=== PATIENT | female | born 1930 | race Caucasian/White ===

== ENCOUNTER → 2016-10-02 | Outpatient (CLI) | payer BC ==
[~2016-10-02] MED LIST: ASPCH81X PO; CALC-20 PO; LATA0.5S OPB; LORA-741 PO; METO25TA3 PO; MULT-506 PO; PANT40TA PO; POTA10CA28 PO; SIMV10TA2 PO; TRAM-10 PO
[2016-10-02 12:32] LABS: CHOLESTEROL/HDL RATIO 2.4
== END | disposition home or self-care (01) ==
LOC: C.LABBFT 08:06
PROVIDERS: ATTEND Internal Medicine Cardiovascular Disease
DX: E78.5 Hyperlipidemia, unspecified (principal); I10 Essential (primary) hypertension

== ENCOUNTER → 2017-04-09 | Outpatient (CLI) | payer BC ==
[2017-04-09 12:06] LABS: BASO % 0.2 %; BASO ABS # 0.01 K/uL (0-0.2); COMPLETE YES; EOS % 1.4 %; HEMATOCRIT 37.5 % (37-47); IG% 0.2 %; LYMPH % 28.2 %; LYMPH ABS # 1.41 K/uL (1.2-3.4); MEAN CELL VOLUME 89.7 fL (80-100); MEAN CORPUSCULAR HEMOGLOBIN 29.4 pg (25-34); MEAN CORPUSCULAR HGB CONC 32.8 g/dl (32-36); MEAN PLATELET VOLUME 10.6 fL (7.4-10.4); MONO % 11.2 %; NEUT % 58.8 %; PLATELET COUNT 204 K/uL (130-400); RED BLOOD COUNT 4.18 M/uL (4.2-5.4)
[2017-04-09 12:26] LABS: CHOLESTEROL/HDL RATIO 2.7; THYROID STIMULATING HORMONE 3.47 uIu/ml (0.300-4.500)
== END | disposition home or self-care (01) ==
LOC: C.LABBFT 09:12
PROVIDERS: ATTEND Internal Medicine Cardiovascular Disease
DX: E78.5 Hyperlipidemia, unspecified (principal); M41.9 Scoliosis, unspecified; K21.0 Gastro-esophageal reflux disease with esophagitis; J47.9 Bronchiectasis, uncomplicated; M54.40 Lumbago with sciatica, unspecified side; K22.4 Dyskinesia of esophagus; I48.91 Unspecified atrial fibrillation; M48.061 Spinal stenosis, lumbar region without neurogenic claudication

== ENCOUNTER 2017-06-03 12:25 | Emergency (ER) | payer BC ==
[2017-06-03 12:27] VITALS: TEMP 36.4; Ht 157.5 cm
[2017-06-03] MEDS ORDERED: ONDANSETRON INJ 2 MG/ML 2 ML VIAL IV STA (12:42)
[2017-06-03] MEDS ORDERED: ALBUT/IPRATROP 3MG/0.5MG NEB 3 ML VIAL INH STA (12:42)
[2017-06-03] MEDS: MoRPHine SULFATE 4 MG/ML 1 ML CARP\\VIAL IV PRN ×2 (13:01→14:01)
--- NOTE | 2017-06-03 13:08 | EMERGENCY ROOM VISIT NOTE ---
History Report prepared by Nena: Brenda Arboleda Under the Supervision of: Dr. Deion Osborn D.O. First contact with patient: 12:34 Chief Complaint: RIB PAIN Stated Complaint: FELL,RIBS History of Present Illness The patient is a 87 year old female who presents to the Emergency Room with complaints of constant right sided rib pain beginning 7 days ago. The patient notes that she fell last , seven days ago. The patient states she was bending forward to wipe off of her dogs feet when she fell forward and hit her head. She denies loss of consciousness. Three days ago, the patient had another fall when she went to sit on her rocking chair and missed the chair. She reports some arm pain and back pain. The patient has a history of COPD, atrial fibrillation. The patient does not wear oxygen. She notes slightly more shortness of breath than her baseline. The patient takes a baby aspirin daily. Source of History: patient Onset: 7 days duke Position: other (rib) Timing: constant Associated Symptoms: + SOB, + back pain, No LOC Review of Systems See HPI for pertinent positives & negatives. A total of 10 systems reviewed and were otherwise negative. Past Medical & Surgical Medical Problems: (1) Atrial fibrillation (2) COPD (chronic obstructive pulmonary disease) Family History Patient reports no known family medical history. Social History Smoking Status: Former Smoker Marital Status: Housing Status: lives with family Current/Historical Medications Scheduled Albuterol Hfa (Ventolin Hfa), 1 PUFF INH Q6 Aspirin (Aspirin Chewable), 81 MG PO QAM Calcium Carbonate-Vitamin D (Calcium 600 + D), 1 TAB PO DAILY Latanoprost (Xalatan 0.005% Oph Hailey), 1 DROPS OPB @2100 Metoprolol Succ (Toprol Xl) (Toprol-Xl), 12.5 MG PO QAM Pantoprazole (Protonix), 40 MG PO 1700 Polyethylene Glycol 3350 (Miralax), 17 GM PO DAILY Potassium Chloride (Micro-K Ext Rel), 10 MEQ PO DAILY Sertraline (Zoloft), 25 MG PO QAM Simvastatin (Zocor), 10 MG PO Q2D Scheduled PRN Lorazepam (Ativan), 0.5 MG PO BID PRN Oxycodone Immediate Rel Tab (Roxicodone Ir), 1 TAB PO Q4H PRN for Severe Pain Tramadol (Ultram), 50 MG PO BID PRN for Pain Allergies Coded Allergies: Erythromycin (Unverified Adverse Reaction, Intermediate, NAUSEA, 06/03/17) Physical Exam Vital Signs Date Time Temp Pulse Resp B/P (MAP) Pulse Ox O2 Delivery O2 Flow Rate FiO2 06/03/17 16:12 80 16 117/54 93 Room Air 06/03/17 14:47 85 16 165/76 100 Nasal Cannula 3.0 06/03/17 14:26 97 Nasal Cannula 3.0 06/03/17 13:49 73 17 173/76 100 Room Air 06/03/17 12:46 75 06/03/17 12:27 36.4 83 20 127/55 97 Room Air Physical Exam GENERAL: Patient is awake, alert, and in no acute distress. Patient is very uncomfortable appearing and showing no signs of anxiety EYES: The conjunctivae are clear. The pupils are round and reactive. EARS, NOSE, MOUTH AND THROAT: The nose is without any evidence of any deformity. Mucous membranes are moist tongue is midline NECK: The neck is nontender and supple. RESPIRATORY: Lung sounds diminished throughout, splinting respirations especially on right side, pursed lip breathing. CARDIOVASCULAR: Tachycardic rate but regular rhythm, no definite murmur appreciated. GASTROINTESTINAL: RUQ tenderness to palpation, no guarding or rigidity. The abdomen is soft. Bowel sounds are present in all quadrants. PELVIS: The Pelvis is stable. No tenderness to palpation is noted. BACK: No midline tenderness, but significant right posterior rib tenderness, no definite crepitus. MUSCULOSKELETAL/EXTREMITIES: There is no evidence of gross deformity full range of motion is noted in the hips and shoulders SKIN: Significant ecchymosis over right arm. There is no obvious evidence of any rash. There are no petechiae, pallor or cyanosis noted. NEUROLOGIC: Patient is awake alert and oriented x3 strength is symmetric patellar reflexes are 2+ bilaterally Medical Decision & Procedures ER Provider Diagnostic Interpretation: Radiology results as stated below per my review and radiologist interpretation: CHEST ONE VIEW PORTABLE FINDINGS: Atherosclerosis of the aortic arch. Cardiac silhouette normal in size. Mild hyperinflation of the lungs. Heterogeneity of lung parenchyma. Minimal basilar opacities. Blunting of the bilateral costophrenic angles. No pneumothorax. Dextrocurvature of the thoracic spine. Osteopenia suspected. Deformities of several anterior right ribs could suggest age-indeterminate fractures. Upper abdomen normal. IMPRESSION: 1. Findings suggestive of emphysema. No focal infiltrate to suggest pneumonia. Minimal bibasilar atelectasis versus chronic lung disease. Electronically signed by: Luis Beal M.D. CT ABD/PELVIS IV AND ORAL CONT FINDINGS: Lower chest: There is lower lobe bronchial wall thickening and mucous plugging. There are bronchiectatic changes present within the lingula. No pneumothorax is visualized. Liver: The contrast-enhanced liver is normal in size, contour, and attenuation. There is no intrahepatic biliary ductal dilatation. The hepatic veins and portal veins are patent. Gallbladder: Unremarkable. Spleen: Normal in size and attenuation. Pancreas: Unremarkable. Adrenal glands: Unremarkable. Kidneys: There are no findings to indicate acute renal injury. There is a 7 mm right renal cyst and 10 mm left renal cyst. 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 There are surgical clips adjacent to the right kidney within the retroperitoneum. Bowel: There is fecal retention. There is colonic diverticulosis. There are no transition zones indicate bowel obstruction. There are no extraluminal gas bubbles. Peritoneum: There is no intraperitoneal free air or abdominal ascites. Vasculature: The abdominal aorta is normal in course and caliber. Adenopathy: None. Pelvic viscera: The uterus appears surgically absent Skeletal structures: No destructive osseous lesions are seen. There is a scoliosis. No fractures are visualized. IMPRESSION: 1. No evidence of acute intra-abdominal or pelvic injury 2. Diverticulosis. No evidence of acute diverticulitis 3. Fecal retention 4. 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 Electronically signed by: Kaiden Cruz M.D. (CHEST) THORAX WITH FINDINGS: [employer] Burnisher topogram: S-shaped scoliotic curvature of the thoracolumbar spine. Surgical clips project over the right mid abdomen. On soft tissue windows, normal thyroid and thoracic inlet. No axillary, supraclavicular, hilar, or mediastinal lymphadenopathy. Atherosclerosis of the aorta. Normal heart size. Minimal coronary artery calcification. Trace right pleural effusion. No pericardial effusion. Calcified lymph nodes suggested in the celiac axis. On lung windows, peripheral reticulation and consolidation has slightly progressed since the prior exam and is noted at the apices and anteriorly in the upper lobes, right greater than left, anteriorly in the right middle lobe, and at the bilateral lung bases. At the lung bases, cystic and reticular change in a subpleural distribution has a stacked appearance. Mosaic attenuation suggest small airways disease. Calcification noted in the medial basal right lower lobe. Debris noted in segmental and subsegmental bronchi in the right lower lobe. More central airways are patent. On bone windows, exaggerated thoracic kyphosis. Degenerative changes of the thoracic spine. Slight deformities of several anterior right ribs suggest fracture. Osteopenia. No focal compression deformity. IMPRESSION: 1. Slight interval progression of peripheral fibrotic changes. Although the lung bases are affected and somewhat suggestive of a honeycomb pattern, anterior and upper lobe involvement would be atypical for a usual interstitial pneumonia pattern. No evidence of emphysema or acute intrathoracic pathology. Other etiologies of pulmonary fibrosis including smoking, chronic aspiration, prior granulomatous infection, chronic hypersensitivity pneumonitis, or drug-induced lung disease among other etiologies. 2. Osteopenia. 3. Nondisplaced deformities of anterior right ribs suggest fracture. These are age-indeterminate. Correlate for point tenderness. Electronically signed by: Luis Beal M.D. Laboratory Results 06/03/17 12:56 Red Blood Count 4.08, Mean Corpuscular Volume 89.7, Mean Corpuscular Hemoglobin 29.9, Mean Corpuscular Hemoglobin Concent 33.3, Mean Platelet Volume 10.2, Neutrophils (%) (Auto) 70.1, Lymphocytes (%) (Auto) 15.4, Monocytes (%) (Auto) 13.5, Eosinophils (%) (Auto) 0.5, Basophils (%) (Auto) 0.3, Neutrophils # (Auto ) 4.27, Lymphocytes # (Auto) 0.94, Monocytes # (Auto) 0.82, Eosinophils # (Auto ) 0.03, Basophils # (Auto) 0.02 06/03/17 12:56 Test 06/03/17 12:56 06/03/17 13:05 06/03/17 13:40 White Blood Count 6.09 K/uL (4.8-10.8) Red Blood Count 4.08 M/uL (4.2-5.4) Hemoglobin 12.2 g/dL (12.0-16.0) Hematocrit 36.6 % (37-47) Mean Corpuscular Volume 89.7 fL (80-100) Mean Corpuscular Hemoglobin 29.9 pg (25-34) Mean Corpuscular Hemoglobin Concent 33.3 g/dl (32-36) Platelet Count 214 K/uL (130-400) Mean Platelet Volume 10.2 fL (7.4-10.4) Neutrophils (%) (Auto) 70.1 % Lymphocytes (%) (Auto) 15.4 % Monocytes (%) (Auto) 13.5 % Eosinophils (%) (Auto) 0.5 % Basophils (%) (Auto) 0.3 % Neutrophils # (Auto) 4.27 K/uL (1.4-6.5) Lymphocytes # (Auto) 0.94 K/uL (1.2-3.4) Monocytes # (Auto) 0.82 K/uL (0.11-0.59) Eosinophils # (Auto) 0.03 K/uL (0-0.5) Basophils # (Auto) 0.02 K/uL (0-0.2) RDW Standard Deviation 43.4 fL (36.4-46.3) RDW Coefficient of Variation 13.2 % (11.5-14.5) Immature Granulocyte % (Auto) 0.2 % Immature Granulocyte # (Auto) 0.01 K/uL (0.00-0.02) Prothrombin Time 12.7 SECONDS (9.0-12.0) Prothromb Time International Ratio 1.2 (0.9-1.1) Activated Partial Thromboplast Time 27.7 SECONDS (21.0-31.0) Partial Thromboplastin Ratio 1.1 Estimated GFR () 95.8 Estimated GFR (Non- 82.7 BUN/Creatinine Ratio 28.3 (10-20) Calcium Level 8.6 mg/dl (8.5-10.1) Total Bilirubin 0.5 mg/dl (0.2-1) Direct Bilirubin 0.1 mg/dl (0-0.2) Aspartate Amino Transf (AST/SGOT) 21 U/L (15-37) Alanine Aminotransferase (ALT/SGPT) 20 U/L (12-78) Alkaline Phosphatase 97 U/L (45-117) Total Creatine Kinase 131 U/L (26-192) Creatine Kinase MB 2.2 ng/ml (0.5-3.6) Creatine Kinase MB Ratio 1.7 (0-3.0) Troponin I < 0.015 ng/ml (0-0.045) Total Protein 8.3 gm/dl (6.4-8.2) Albumin 3.2 gm/dl (3.4-5.0) Lipase 155 U/L (73-393) Bedside Hemoglobin 12.9 g/dl (12.0-16.0) Bedside Hematocrit 38 % (37-47) Bedside Sodium 134 mEq/L (135-144) Bedside Potassium 4.0 mEq/L (3.3-5.0) Bedside Chloride 92 mEq/L (101-112) Bedside Total CO2 30 mEq/l (24-31) Anion Gap 17.0 mmol/L (16-25) Bedside Blood Urea Nitrogen 18 mg/dl (7-18) Bedside Creatinine 0.6 mg/dl (0.6-1.3) Bedside Glucose (other) 121 mg/dl (70-99) Bedside Ionized Calcium (Blane) 1.20 mmol/l (1.12-1.32) Urine Color YELLOW Urine Appearance CLEAR (CLEAR) Urine pH 6.0 (4.5-7.5) Urine Specific [place] 1.021 (1.000-1.030) Urine Protein NEG (NEG) Urine Glucose (UA) NEG (NEG) Urine Ketones NEG (NEG) Urine Occult Blood 1+ (NEG) Urine Nitrite NEG (NEG) Urine Bilirubin NEG (NEG) Urine Urobilinogen NEG (NEG) Urine Leukocyte Esterase SMALL (NEG) Urine WBC (Auto) 1-5 /hpf (0-5) Urine RBC (Auto) 0-4 /hpf (0-4) Urine Hyaline Casts (Auto) 0 /lpf (0-5) Urine Epithelial Cells (Auto) 10-20 /lpf (0-5) Urine Bacteria (Auto) NEG (NEG) Laboratory results per my review. Medications Administered Medications (Trade) Dose Ordered Sig/Raina Route Start Time Stop Time Status Last Admin Dose Admin Morphine Sulfate (MoRPHine SULFATE INJ) 4 mg Q15M PRN IV 06/03/17 12:45 06/03/17 16:41 DC 06/03/17 14:01 4 MG Ondansetron HCl (Zofran Inj) 4 mg NOW STAT IV 06/03/17 12:42 06/03/17 12:45 DC 06/03/17 12:59 4 MG Albuterol/ Ipratropium (Duoneb) 3 ml NOW STAT INH 06/03/17 12:42 06/03/17 12:45 DC 06/03/17 13:02 3 ML ECG Indication: other (trauma) Rate (beats per minute): 78 Rhythm: normal sinus Findings: no ectopy, other (No acute ST segement, LVH noted by voltage criteria ) Comparison ECG Date: 04/01/93 Change: no significant change ED Course 1239: The patient was evaluated in room C4. A complete history and physical examination were performed. 1242: Ordered Duoneb 3 ml INH, Zofran Inj 4 mg IV. 1245: Ordered Morphine Sulfate 4 mg IV. 1350: The patient is still in pain. The patient's lungs sound more clear. 1414: The patient is feeling better. 1538: Updated the patient on her test results. She would like to go home. 1641: Upon reevaluation, the patient is resting comfortably. I discussed the results and treatment plan with her. She verbalized agreement of the treatment plan. The patient was discharged home. Medical Decision Differential diagnosis: Etiologies such as fracture, dislocation, intra-abdominal, pneumothorax, intrathoracic , intracranial, neurologic, as well as other traumatic pathologies were entertained. Nursing notes reviewed. Additional history is obtained from the patient's family members. The patient is an 87-year-old female who presented to the emergency department for an evaluation of right-sided chest pain. The patient has had 2 falls recently each time hurting the right side of her chest. The patient had a physical exam which was consistent with COPD as well as a significant chest wall injury. The patient was treated with bronchodilator therapy in emergency department. The patient was also treated with pain medication. The patient was reevaluated multiple times. Her pain was somewhat improved and her respiratory status improved. She had a few episodes of oxygen desaturation. I discussed the patient's laboratory and radiographic studies with her. She does not appear to have any signs of pneumothorax or pulmonary contusion. At this time I feel the patient might require inpatient management because of the episodes of hypoxia however the patient did not wish to stay in the hospital. She was reevaluated multiple times and still continued to wish to be discharged home. She has a significant other with multiple medical problems that she cares for. The patient was encouraged to rest and avoid any strenuous activity. She was also encouraged to continue all medications as prescribed. The patient was also encouraged to return the emergency Department immediately if symptoms change worsen or the need arises. Medication Reconcilliation Current Medication List: was personally reviewed by me Blood Pressure Screening Patient's blood pressure: Normal blood pressure Impression Primary Impression: Fall Additional Impressions: Multiple fractures of ribs of right side Abdominal contusion Contusion of right arm Scribe Attestation The scribe's documentation has been prepared under my direction and personally reviewed by me in its entirety. I confirm that the note above accurately reflects all work, treatment, procedures, and medical decision making performed by me. Departure Information Dispostion Home / Self-Care Prescriptions Polyethylene Glycol 3350 (MIRALAX) 1 Pow Pow 17 GM PO DAILY, #527 GM Prov: Deion Osborn, DO 06/03/17 Albuterol Hfa (VENTOLIN HFA) 200 Puffs/59310 Mcg Aers 1 PUFF INH Q6, #1 INHALER Prov: Deion Osborn, DO 06/03/17 Oxycodone Immediate Rel Tab (ROXICODONE IR) 5 Mg Tab 1 TAB PO Q4H Y for Severe Pain, #20 TAB Prov: Deion Osborn, DO 06/03/17 Referrals Bo Perez M.D. (PCP) Forms HOME CARE DOCUMENTATION FORM, IMPORTANT VISIT INFORMATION, WORK / SCHOOL INSTRUCTIONS Patient Instructions ED Fx Rib, My [facility] Additional Instructions Rest and avoid any strenuous activity. Continue all medications as prescribed. Continue to use the incentive spirometer 6-7 times a day. Follow-up with your family doctor soon as possible. Return to the emergency department immediately if symptoms change worsen or the need arises. Problem Qualifiers Primary Impression: Fall Encounter type: initial encounter Qualified Codes: W19.XXXA - Unspecified fall, initial encounter Additional Impressions: Multiple fractures of ribs of right side Encounter type: initial encounter Fracture type: closed Qualified Codes: S22.41XA - Multiple fractures of ribs, right side, initial encounter for closed fracture Abdominal contusion Encounter type: initial encounter Qualified Codes: S30.1XXA - Contusion of abdominal wall, initial encounter Contusion of right arm Encounter type: initial encounter Qualified Codes: S40.021A - Contusion of right upper arm, initial encounter
[2017-06-03 13:15] LABS: BASO % 0.3 %; BASO ABS # 0.02 K/uL (0-0.2); COMPLETE YES; EOS % 0.5 %; HEMATOCRIT 36.6 % (37-47); IG% 0.2 %; LYMPH % 15.4 %; LYMPH ABS # 0.94 K/uL (1.2-3.4); MEAN CELL VOLUME 89.7 fL (80-100); MEAN CORPUSCULAR HEMOGLOBIN 29.9 pg (25-34); MEAN CORPUSCULAR HGB CONC 33.3 g/dl (32-36); MEAN PLATELET VOLUME 10.2 fL (7.4-10.4); MONO % 13.5 %; NEUT % 70.1 %; PLATELET COUNT 214 K/uL (130-400); RED BLOOD COUNT 4.08 M/uL (4.2-5.4); WHITE BLOOD COUNT 6.09 K/uL (4.8-10.8)
--- NOTE | 2017-06-03 13:18 | DIAGNOSTIC IMAGING REPORT ---
CHEST ONE VIEW PORTABLE CLINICAL HISTORY: 87 years-old Female presenting with ABDOMINAL PAIN/GI. TECHNIQUE: Portable upright AP view of the chest was obtained. COMPARISON: 08/15/2013. FINDINGS: Atherosclerosis of the aortic arch. Cardiac silhouette normal in size. Mild hyperinflation of the lungs. Heterogeneity of lung parenchyma. Minimal basilar opacities. Blunting of the bilateral costophrenic angles. No pneumothorax. Dextrocurvature of the thoracic spine. Osteopenia suspected. Deformities of several anterior right ribs could suggest age-indeterminate fractures. Upper abdomen normal. IMPRESSION: 1. Findings suggestive of emphysema. No focal infiltrate to suggest pneumonia. Minimal bibasilar atelectasis versus chronic lung disease. Electronically signed by: Luis Beal M.D. 06/03/2017 1:16 PM Dictated Date/Time: 06/03/2017 1:14 PM
[2017-06-03 13:23] LABS: INR 1.2 (0.9-1.1); PARTIAL THROMBOPLASTIN RATIO 1.1; PROTHROMBIN TIME (PATIENT) 12.7 SECONDS (9.0-12.0)
[2017-06-03 13:34] LABS: ALT/SGPT 20 U/L (12-78); BLOOD UREA NITROGEN 17 mg/dl (7-18); BUN/CREATININE RATIO 28.3 (10-20); CALCIUM 8.6 mg/dl (8.5-10.1); CARBON DIOXIDE 30 mmol/L (21-32); CHLORIDE 94 mmol/L (98-107); CREATININE 0.61 mg/dl (0.60-1.20); GLUCOSE 116 mg/dl (70-99); POTASSIUM 3.9 mmol/L (3.5-5.1); SODIUM 131 mmol/L (136-145)
--- NOTE | 2017-06-03 13:37 | DIAGNOSTIC IMAGING REPORT ---
CT ABD/PELVIS IV AND ORAL CONT CLINICAL HISTORY: Right-sided abdominal pain status post trauma COMPARISON STUDY: 09/15/2011 TECHNIQUE: Following the IV administration of 93 mL of Optiray-320, CT scan of the abdomen and pelvis was performed from the lung bases to the proximal femurs. Images are reviewed in the axial, sagittal, and coronal planes. IV contrast was administered without complication. A dose lowering technique was utilized adhering to the principles of ALARA. CT DOSE: FINDINGS: Lower chest: There is lower lobe bronchial wall thickening and mucous plugging. There are bronchiectatic changes present within the lingula. No pneumothorax is visualized. Liver: The contrast-enhanced liver is normal in size, contour, and attenuation. There is no intrahepatic biliary ductal dilatation. The hepatic veins and portal veins are patent. Gallbladder: Unremarkable. Spleen: Normal in size and attenuation. Pancreas: Unremarkable. Adrenal glands: Unremarkable. Kidneys: There are no findings to indicate acute renal injury. There is a 7 mm right renal cyst and 10 mm left renal cyst. 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 There are surgical clips adjacent to the right kidney within the retroperitoneum. Bowel: There is fecal retention. There is colonic diverticulosis. There are no transition zones indicate bowel obstruction. There are no extraluminal gas bubbles. Peritoneum: There is no intraperitoneal free air or abdominal ascites. Vasculature: The abdominal aorta is normal in course and caliber. Adenopathy: None. Pelvic viscera: The uterus appears surgically absent Skeletal structures: No destructive osseous lesions are seen. There is a scoliosis. No fractures are visualized. IMPRESSION: 1. No evidence of acute intra-abdominal or pelvic injury 2. Diverticulosis. No evidence of acute diverticulitis 3. Fecal retention 4. 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 Electronically signed by: Kaiden Cruz M.D. 06/03/2017 1:35 PM Dictated Date/Time: 06/03/2017 1:28 PM
[2017-06-03 13:39] LABS: ALKALINE PHOSPHATASE 97 U/L (45-117); AST/SGOT 21 U/L (15-37); CKMB/CK RATIO 1.7 (0-3.0)
--- NOTE | 2017-06-03 13:48 | DIAGNOSTIC IMAGING REPORT ---
(CHEST) THORAX WITH CLINICAL HISTORY: 87 years-old Female presenting with trauma, multiple recent falls, right-sided rib pain. TECHNIQUE: Multidetector CT imaging of the chest was performed without the use of intravenous contrast. IV contrast: 93 mL of Optiray 320. A dose lowering technique was used consistent with the principles of ALARA (as low as reasonably achievable). COMPARISON: 05/19/2012. CT DOSE (mGy.cm): The estimated cumulative dose is 455.24 mGy.cm. FINDINGS: [employer] Librarian topogram: S-shaped scoliotic curvature of the thoracolumbar spine. Surgical clips project over the right mid abdomen. On soft tissue windows, normal thyroid and thoracic inlet. No axillary, supraclavicular, hilar, or mediastinal lymphadenopathy. Atherosclerosis of the aorta. Normal heart size. Minimal coronary artery calcification. Trace right pleural effusion. No pericardial effusion. Calcified lymph nodes suggested in the celiac axis. On lung windows, peripheral reticulation and consolidation has slightly progressed since the prior exam and is noted at the apices and anteriorly in the upper lobes, right greater than left, anteriorly in the right middle lobe, and at the bilateral lung bases. At the lung bases, cystic and reticular change in a subpleural distribution has a stacked appearance. Mosaic attenuation suggest small airways disease. Calcification noted in the medial basal right lower lobe. Debris noted in segmental and subsegmental bronchi in the right lower lobe. More central airways are patent. On bone windows, exaggerated thoracic kyphosis. Degenerative changes of the thoracic spine. Slight deformities of several anterior right ribs suggest fracture. Osteopenia. No focal compression deformity. IMPRESSION: 1. Slight interval progression of peripheral fibrotic changes. Although the lung bases are affected and somewhat suggestive of a honeycomb pattern, anterior and upper lobe involvement would be atypical for a usual interstitial pneumonia pattern. No evidence of emphysema or acute intrathoracic pathology. Other etiologies of pulmonary fibrosis including smoking, chronic aspiration, prior granulomatous infection, chronic hypersensitivity pneumonitis, or drug-induced lung disease among other etiologies. 2. Osteopenia. 3. Nondisplaced deformities of anterior right ribs suggest fracture. These are age-indeterminate. Correlate for point tenderness. Electronically signed by: Luis Beal M.D. 06/03/2017 1:46 PM Dictated Date/Time: 06/03/2017 1:33 PM
[2017-06-03 14:25] LABS: ISTAT CREATININE 0.6 mg/dl (0.6-1.3); ISTAT HEMOGLOBIN 12.9 g/dl (12.0-16.0); ISTAT IONIZED CALCIUM 1.2 mmol/l (1.12-1.32)
[2017-06-03 14:26] VITALS: O2SAT 97
[2017-06-03 14:32] LABS: URINE APPEARANCE CLEAR (CLEAR); URINE BILIRUBIN NEG (NEG); URINE COLOR YELLOW; URINE NITRITE NEG (NEG); URINE SPECIFIC GRAVITY 1.021 (1.000-1.030); UROBILINOGEN NEG (NEG)
[2017-06-03 14:37] LABS: MANUAL MICROSCOPIC REQUIRED? NO; REVIEW REQ? NO
[2017-06-03] MEDS ORDERED: SERT25TA PO (14:37)
[2017-06-03] MEDS ORDERED: VNTHFA/IN INH (15:45)
[2017-06-03] MEDS ORDERED: OXYC1TAB3 PO (15:45)
[2017-06-03] MEDS ORDERED: POLY335019 PO (15:45)
[2017-06-03 16:12] VITALS: BP 117/54; PULSE 80; O2SAT 93
== END 2017-06-03 16:24 | disposition home or self-care (01) ==
LOC: C.EDB 12:25 → C.EDC 16:24
DX: S22.41XA Multiple fractures of ribs, right side, initial encounter for closed fracture (principal); S30.1XXA Contusion of abdominal wall, initial encounter; S40.021A Contusion of right upper arm, initial encounter; W19.XXXA Unspecified fall, initial encounter; I48.91 Unspecified atrial fibrillation; J44.9 Chronic obstructive pulmonary disease, unspecified; Z87.891 Personal history of nicotine dependence; Z79.82 Long term (current) use of aspirin

== ENCOUNTER 2017-07-12 14:14 | Emergency (ER) | payer BC ==
[~2017-07-12] VITALS: Ht 157.5 cm; Wt 48.0 kg
[~2017-07-12 14:14] MED LIST changes: -MULT-506 PO; +OXYC1TAB3 PO; +POLY335019 PO; +SERT25TA PO; +VNTHFA/IN INH
[2017-07-12 14:35] VITALS: TEMP 36.8; Ht 157.5 cm; Wt 48.0 kg
--- NOTE | 2017-07-12 16:49 | EMERGENCY ROOM VISIT NOTE ---
History Report prepared by Elmeribmónica: Andres Ricardo Under the Supervision of: Dr. Benjamin Simeon M.D. (Benjamin Simeon M.D.) First contact with patient: 16:09 (Benjamin Simeon M.D.) First contact with patient: 16:09 (Darlene Harmon M.D.) Chief Complaint: BACK PAIN Stated Complaint: SEVERE BACK PAIN, PAIN MEDS NOT HELPING History of Present Illness The patient is a 87 year old female who presents to the Emergency Room with complaints of intermittent lower back pain beginning two weeks ago. She describes her pain as "sharp". She denies fevers, chills, cough, numbness, urinary symptoms, nausea, vomiting, weakness, loss of continence, or SOB. The patient has a history of scoliosis, osteoporosis, osteoarthritis, and recent rib fractures occurring last month from two falls. She has not noticed any triggers for her pain. She started taking Oxycodone for her pain two days ago, but nothing has improved her symptoms. The patient is not on blood thinners. She notes that she has been constipated recently and feels it is due to the Oxycodone. Per daughter, the patient has a history of chronic back pain due to her osteoporosis, and osteoarthritis, but her current pain appears much more severe than normal. Source of History: patient Onset: Two weeks ago Position: back (lower) Quality: sharp Timing: intermittent Modifying Factors (Relieving): other (none) Associated Symptoms: No fevers, No chills, No cough, No SOB, No nausea, No vomiting, No urinary symptoms, No weakness, No numbness Note: The patient denies loss of continence. (Benjamin Simeon M.D.) Review of Systems See HPI for pertinent positives and negatives. A total of ten systems were reviewed and were otherwise negative. (Benjamin Simeon M.D.) Past Medical & Surgical Medical Problems: (1) Abdominal contusion (2) Atrial fibrillation (3) Contusion of right arm (4) COPD (chronic obstructive pulmonary disease) (5) Fall (6) Multiple fractures of ribs of right side (7) Osteoarthritis (8) Osteoporosis (9) Scoliosis (Darlene Harmon M.D.) Family History Patient reports no known family medical history. (Benjamin Simeon M.D.) Patient reports no known family medical history. (Darlene Harmon M.D.) Social History Smoking Status: Former Smoker Marital Status: Housing Status: lives with family (Benjamin Simeon M.D.) Current/Historical Medications Scheduled Albuterol Hfa (Ventolin Hfa), 1 PUFF INH Q6 Aspirin (Aspirin Chewable), 81 MG PO QAM Calcium Carbonate-Vitamin D (Calcium 600 + D), 1 TAB PO DAILY Latanoprost (Xalatan 0.005% Oph Hailey), 1 DROPS OPB @2100 Lidocaine (Lidocaine), 1 PATCH TD DAILY Metoprolol Succ (Toprol Xl) (Toprol-Xl), 12.5 MG PO QAM Pantoprazole (Protonix), 40 MG PO 1700 Potassium Chloride (Micro-K Ext Rel), 10 MEQ PO DAILY Sertraline (Zoloft), 25 MG PO QAM Simvastatin (Zocor), 10 MG PO Q2D Scheduled PRN Lorazepam (Ativan), 0.5 MG PO BID PRN Oxycodone Immediate Rel Tab (Roxicodone Ir), 1 TAB PO Q4H PRN for Severe Pain Tramadol (Ultram), 50 MG PO BID PRN for Pain Allergies Coded Allergies: Erythromycin (Unverified Adverse Reaction, Intermediate, NAUSEA, 07/12/17) Physical Exam Vital Signs Date Time Temp Pulse Resp B/P (MAP) Pulse Ox O2 Delivery O2 Flow Rate FiO2 07/12/17 16:52 73 20 183/81 95 Room Air 07/12/17 14:35 36.8 81 18 131/67 94 Room Air (Darlene Harmon M.D.) Physical Exam GENERAL: Awake, alert, uncomfortable-appearing, in no distress HENT: Normocephalic, atraumatic. Oropharynx unremarkable. Dry mucous membranes. EYES: Normal conjunctiva. Sclera non-icteric. NECK: Supple. No nuchal rigidity. FROM. No JVD. RESPIRATORY: Clear to auscultation. CARDIAC: Regular rate, normal rhythm. Extremities warm and well perfused. Pulses equal. ABDOMEN: Soft, non-distended. No tenderness to palpation. No rebound or guarding. No masses. RECTAL: Deferred. MUSCULOSKELETAL: Chest examination reveals no tenderness. Mild lumbar paraspinal and midline tenderness. No step-offs. Severe scoliosis noted. There is no CVA tenderness to palpation. No joint edema. LOWER EXTREMITIES: Calves are equal size bilaterally and non-tender. No edema. No discoloration. NEURO: Normal sensorium. No sensory or motor deficits noted. 5/5 strength and SILT in bilateral lower extremities. SKIN: No rash or jaundice noted. (Benjamin Simeon M.D.) Medical Decision & Procedures ER Provider Diagnostic Interpretation: Radiology results as stated below per my review and radiologist interpretation: CT ABD/PELVIS IV CONTRAST ONLY FINDINGS: Lower chest: There are bilateral bronchiectatic changes with areas of mucous plugging. Liver: There is mild central hepatic biliary ductal dilatation. There are no focal hepatic masses. Gallbladder: Mildly distended Spleen: Normal in size and attenuation. Pancreas: Unremarkable. Adrenal glands: Unremarkable. Kidneys: There is progressive bilateral hydronephrosis with pronounced dilatation of each renal pelvis there is a 9 mm right renal cortical cyst. Bowel: A virus the bowel is limited due to the lack of orally administered contrast. There is moderate fecal retention. There are no transition zones indicate bowel obstruction. There is no acute diverticulitis. There are no findings to indicate acute appendicitis. Peritoneum: There is no intraperitoneal free air or abdominal ascites. Vasculature: The abdominal aorta is normal in course and caliber. Adenopathy: None. Pelvic viscera: The uterus appears surgically absent. Skeletal structures: There is a pronounced levoscoliosis. There is a new moderate T11 compression fracture. IMPRESSION: 1. Progressive bilateral hydronephrosis, likely secondary to UPJ type obstruction is 2. Fecal retention. No evidence of bowel obstruction. No evidence of free air 3. New T11 compression fracture 4. Lower lobe bronchiectasis with mucous plugging. Electronically signed by: Kaiden Cruz M.D. 07/12/2017 6:[address] LUMBAR SPINE WITHOUT FINDINGS: There is a moderate lumbar levoscoliosis. L1-2 level: There is no evidence of significant disc bulge or focal herniation. There is no evidence of spinal or foraminal stenosis. L2-3 level: There is a mild circumferential disc bulge with minimal spinal canal narrowing L3-4 level: There is a circumferential disc bulge with moderate spinal stenosis L4-5 level: There is a circumferential disc bulge with mild spinal stenosis L5-S1 level: There is no evidence of significant disc bulge or focal herniation. There is no evidence of spinal or foraminal stenosis. There is bilateral hydronephrosis. IMPRESSION: 1. No acute fractures or subluxations within the lumbar spine 2. Bilateral hydronephrosis 3. 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 4. Moderate levoscoliosis Electronically signed by: Kaiden Cruz M.D. 07/12/2017 6:17 PM (Benjamin Simeon M.D.) Laboratory Results Test 07/12/17 16:49 07/12/17 17:05 (Darlene Harmon M.D.) Laboratory results reviewed by me (Benjamin Simeon M.D.) ED Course 1615: The patient was evaluated in room A11B. A complete history and physical exam was performed. 1845: I discussed the patient's case with her. She would like to go to a physical rehab center if possible. 1924: I reevaluated the patient. Discussed results and discharge instructions: she verbalized understanding and agreement. The patient is ready for discharge. (Benjamin Simeon M.D.) Medical Decision I reviewed the patient's past medical history, medications, and the nursing notes as described above. The patient's presentation and history were concerning for musculoskeletal, disc herniation, fracture, aortic disease, metastatic disease, cord compression , discitis, infection, renal colic, gastrointestinal, acute exacerbation of chronic back pain, sciatica, cauda equina, as well as other pathologies were entertained. The patient is an 87 y/o woman with pmhx of back pain with fall with rib fx 1 month ago now presents to the emergency department with worsening lower back pain over the past 2 weeks per HPI. On arrival the patient is uncomfortable but in NAD, AFVSS. Denies urinary retention or bowel incontinence. On exam, has mild lumbar paraspinal and midline ttp. No step-offs. Severe scoliosis. 5/5 strength and SILT BLE. Labs unremarkable including wbc wnl. UA negative for infection. CT abd/pel and Lspine with new T11 compression fx. No posterior involvement. Hydronephrosis chronic but worse. Renal function wnl. Findings d/w patient and daughter. Daughter initially concern about managing patient's pain at home however d/w CM and unable to find placement tonight. Resident discussed options for admission vs discharge d/w patient and daughter and prefer discharge with plan for pcp f/u to arrange home PT. Findings and plan for follow -up reviewed with patient. Patient agreeable and d/c'd per discharge instructions. I discussed the case with the resident physician, examined the patient, and agree with the findings and plan as documented in the residents note unless otherwise clarified here by me. (Benjamin Simeon M.D.) Medication Reconcilliation Current Medication List: was personally reviewed by me (Benjamin Simeon M.D.) Blood Pressure Screening Patient's blood pressure: Elevated blood pressure Blood pressure disposition: Referred to PCP (Benjamin Simeon M.D.) Impression Primary Impression: Thoracic compression fracture Scribe Attestation The scribe's documentation has been prepared under my direction and personally reviewed by me in its entirety. I confirm that the note above accurately reflects all work, treatment, procedures, and medical decision making performed by me. (Benjamin Simeon M.D.) Departure Information Dispostion Home / Self-Care Prescriptions Lidocaine (Lidocaine) 1 Patch Tdsy 1 PATCH TD DAILY for 30 Days, #30 UNIT Apply for 12 hours, leave off for 12 hours. Repeat. Prov: Darlene Harmon M.D. 07/12/17 Referrals Bo Perez M.D. (PCP) Forms HOME CARE DOCUMENTATION FORM, IMPORTANT VISIT INFORMATION Patient Instructions Back Pain - [facility], ED Fx Comp Vertebral, My [facility] Additional Instructions For pain control of your back pain, please continue to take Oxycodone-APAP as prescribed, Tramadol as prescribed. Please also take Naproxyn as prescribed, and use a Lidoderm patch - apply for 12 hours and leave off for 12 hours. Please also take Colace tabs and Miralax as prescribed. Please call and follow up with your primary care physician to arrange for home physical therapy as discussed, for strengthening exercises to increase function. We also recommend you follow up with Dr. Fernandez who is Orthopedic surgery.
[2017-07-12] MEDS ORDERED: FENTANYL CITRATE INJ 50 MCG/1 ML 2 ML VIAL IV STA (17:03)
[2017-07-12] MEDS ORDERED: SODIUM CHLORIDE 0.9% 500ML 500 ML IV STA (17:03)
[2017-07-12] MEDS ORDERED: OPTIRAY 320 IV PRN (17:15)
[2017-07-12 17:24] LABS: BASO % 0.2 %; BASO ABS # 0.01 K/uL (0-0.2); EOS % 1.9 %; HEMATOCRIT 32.5 % (37-47); HEMOGLOBIN 10.8 g/dL (12.0-16.0); IG# 0.02 K/uL (0.00-0.02); LYMPH % 24.3 %; LYMPH ABS # 1.25 K/uL (1.2-3.4); MEAN CELL VOLUME 88.8 fL (80-100); MEAN CORPUSCULAR HEMOGLOBIN 29.5 pg (25-34); MEAN CORPUSCULAR HGB CONC 33.2 g/dl (32-36); MEAN PLATELET VOLUME 10.1 fL (7.4-10.4); MONO % 15.4 %; MONO ABS # 0.79 K/uL (0.11-0.59); NEUT % 57.8 %; NEUT ABS # 2.97 K/uL (1.4-6.5); PLATELET COUNT 239 K/uL (130-400); RED CELL DISTRIBUTION WIDTH CV 13.3 % (11.5-14.5); RED CELL DISTRIBUTION WIDTH SD 43.4 fL (36.4-46.3); WHITE BLOOD COUNT 5.14 K/uL (4.8-10.8)
[2017-07-12 17:40] LABS: CREATININE 0.65 mg/dl (0.60-1.20); POTASSIUM 3.9 mmol/L (3.5-5.1)
[2017-07-12 17:43] LABS: TOTAL PROTEIN 8.1 gm/dl (6.4-8.2)
--- NOTE | 2017-07-12 17:48 | EMERGENCY ROOM VISIT NOTE ---
History First contact with patient: 16:09 Chief Complaint: BACK PAIN Stated Complaint: SEVERE BACK PAIN, PAIN MEDS NOT HELPING History of Present Illness The patient is a 87 year old female who presents to the Emergency Room with complaints of acute lower back pain x 2 weeks. Sharp, located in lower back. Has h/o scoliosis. Denies s/s saddle anesthesia. Denies dysuria. Pt called in to her PCP Dr. Perez c/o back pain and they ordered Oxycodone/APAP 5-325. She has been taking that for 2 days with no relief. Pt states that she doesn't take NSAIDS because of a h/o kidney stones and kidney surgery (unknown what type?). Baseline ambulates with walker. Otherwise denies nausea/vomiting/fever/chills/SOB/CP/numbness or tingling. Daughter is at bedside, her main concern is bone cancer, and also that her pain precludes her being able to go home right now. Acc to PCP note in May, she lives with her in an apartment attached to her daughter's home. Pt denies any FH of cancers except one sister with breast cancer. 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 Social History Smoking Status: Former Smoker Marital Status: Housing Status: lives with family Current/Historical Medications Scheduled Albuterol Hfa (Ventolin Hfa), 1 PUFF INH Q6 Aspirin (Aspirin Chewable), 81 MG PO QAM Calcium Carbonate-Vitamin D (Calcium 600 + D), 1 TAB PO DAILY Latanoprost (Xalatan 0.005% Oph Hailey), 1 DROPS OPB @2100 Metoprolol Succ (Toprol Xl) (Toprol-Xl), 12.5 MG PO QAM Pantoprazole (Protonix), 40 MG PO 1700 Potassium Chloride (Micro-K Ext Rel), 10 MEQ PO DAILY Sertraline (Zoloft), 25 MG PO QAM Simvastatin (Zocor), 10 MG PO Q2D Scheduled PRN Lorazepam (Ativan), 0.5 MG PO BID PRN Oxycodone Immediate Rel Tab (Roxicodone Ir), 1 TAB PO Q4H PRN for Severe Pain Tramadol (Ultram), 50 MG PO BID PRN for Pain Physical Exam Vital Signs Date Time Temp Pulse Resp B/P (MAP) Pulse Ox O2 Delivery O2 Flow Rate FiO2 07/12/17 18:45 83 95 07/12/17 17:22 81 18 195/94 96 Room Air 07/12/17 16:52 73 20 183/81 95 Room Air 07/12/17 14:35 36.8 81 18 131/67 94 Room Air Physical Exam as below General Appearance: WD/WN, + mild distress Eyes: normal inspection, EOMI Respiratory/Chest: lungs clear, normal breath sounds, no respiratory distress Cardiovascular: regular rate, rhythm, no gallop Abdomen / GI: normal bowel sounds, soft Back: + muscle spasm (right lower paraspinal muscles tender to palpation), + pertinent finding (5cm vertical scar on right lower back in tact, left lateral scoliosis of lumbar spine) Medical Decision & Procedures Laboratory Results 07/12/17 17:05 Red Blood Count 3.66, Mean Corpuscular Volume 88.8, Mean Corpuscular Hemoglobin 29.5, Mean Corpuscular Hemoglobin Concent 33.2, Mean Platelet Volume 10.1, Neutrophils (%) (Auto) 57.8, Lymphocytes (%) (Auto) 24.3, Monocytes (%) (Auto) 15.4, Eosinophils (%) (Auto) 1.9, Basophils (%) (Auto) 0.2, Neutrophils # (Auto ) 2.97, Lymphocytes # (Auto) 1.25, Monocytes # (Auto) 0.79, Eosinophils # (Auto ) 0.10, Basophils # (Auto) 0.01 07/12/17 17:05 Test 07/12/17 17:05 07/12/17 17:10 White Blood Count 5.14 K/uL (4.8-10.8) Red Blood Count 3.66 M/uL (4.2-5.4) Hemoglobin 10.8 g/dL (12.0-16.0) Hematocrit 32.5 % (37-47) Mean Corpuscular Volume 88.8 fL (80-100) Mean Corpuscular Hemoglobin 29.5 pg (25-34) Mean Corpuscular Hemoglobin Concent 33.2 g/dl (32-36) Platelet Count 239 K/uL (130-400) Mean Platelet Volume 10.1 fL (7.4-10.4) Neutrophils (%) (Auto) 57.8 % Lymphocytes (%) (Auto) 24.3 % Monocytes (%) (Auto) 15.4 % Eosinophils (%) (Auto) 1.9 % Basophils (%) (Auto) 0.2 % Neutrophils # (Auto) 2.97 K/uL (1.4-6.5) Lymphocytes # (Auto) 1.25 K/uL (1.2-3.4) Monocytes # (Auto) 0.79 K/uL (0.11-0.59) Eosinophils # (Auto) 0.10 K/uL (0-0.5) Basophils # (Auto) 0.01 K/uL (0-0.2) RDW Standard Deviation 43.4 fL (36.4-46.3) RDW Coefficient of Variation 13.3 % (11.5-14.5) Immature Granulocyte % (Auto) 0.4 % Immature Granulocyte # (Auto) 0.02 K/uL (0.00-0.02) Anion Gap 9.0 mmol/L (3-11) Est Creatinine Clear Calc Drug Dose 47.9 ml/min Estimated GFR () 93.8 Estimated GFR (Non- 81.0 BUN/Creatinine Ratio 27.6 (10-20) Lactic Acid Level 0.8 mmol/L (0.4-2.0) Calcium Level 9.0 mg/dl (8.5-10.1) Total Bilirubin 0.2 mg/dl (0.2-1) Aspartate Amino Transf (AST/SGOT) 19 U/L (15-37) Alanine Aminotransferase (ALT/SGPT) 18 U/L (12-78) Alkaline Phosphatase 98 U/L (45-117) Total Protein 8.1 gm/dl (6.4-8.2) Albumin 3.0 gm/dl (3.4-5.0) Globulin 5.1 gm/dl (2.5-4.0) Albumin/Globulin Ratio 0.6 (0.9-2) Urine Color YELLOW Urine Appearance CLEAR (CLEAR) Urine pH 6.5 (4.5-7.5) Urine Specific [employer] 1.009 (1.000-1.030) Urine Protein NEG (NEG) Urine Glucose (UA) NEG (NEG) Urine Ketones NEG (NEG) Urine Occult Blood TRACE (NEG) Urine Nitrite NEG (NEG) Urine Bilirubin NEG (NEG) Urine Urobilinogen NEG (NEG) Urine Leukocyte Esterase NEG (NEG) Urine WBC (Auto) 0 /hpf (0-5) Urine RBC (Auto) 0-4 /hpf (0-4) Urine Hyaline Casts (Auto) 0 /lpf (0-5) Urine Epithelial Cells (Auto) 0-5 /lpf (0-5) Urine Bacteria (Auto) NEG (NEG) Medications Administered Medications (Trade) Dose Ordered Sig/Raina Route Start Time Stop Time Status Last Admin Dose Admin Fentanyl Citrate (Fentanyl Inj) 50 mcg NOW STAT IV 07/12/17 17:03 07/12/17 17:07 DC 07/12/17 17:22 50 MCG Sodium Chloride 500 ml @ 999 mls/hr Q31M STAT IV 07/12/17 17:03 07/12/17 17:33 DC 07/12/17 17:22 999 MLS/HR Procedure CT ABD/PELVIS IV CONTRAST ONLY CLINICAL HISTORY: Low back and abdominal pain COMPARISON STUDY: 06/03/2017 TECHNIQUE: Following the IV administration of 115 mL of Optiray-320, CT scan of the abdomen and pelvis was performed from the lung bases to the proximal femurs. Images are reviewed in the axial, sagittal, and coronal planes. IV contrast was administered without complication. A dose lowering technique was utilized adhering to the principles of ALARA. CT DOSE: 237.84 mGy.cm FINDINGS: Lower chest: There are bilateral bronchiectatic changes with areas of mucous plugging. Liver: There is mild central hepatic biliary ductal dilatation. There are no focal hepatic masses. Gallbladder: Mildly distended Spleen: Normal in size and attenuation. Pancreas: Unremarkable. Adrenal glands: Unremarkable. Kidneys: There is progressive bilateral hydronephrosis with pronounced dilatation of each renal pelvis there is a 9 mm right renal cortical cyst. Bowel: A virus the bowel is limited due to the lack of orally administered contrast. There is moderate fecal retention. There are no transition zones indicate bowel obstruction. There is no acute diverticulitis. There are no findings to indicate acute appendicitis. Peritoneum: There is no intraperitoneal free air or abdominal ascites. Vasculature: The abdominal aorta is normal in course and caliber. Adenopathy: None. Pelvic viscera: The uterus appears surgically absent. Skeletal structures: There is a pronounced levoscoliosis. There is a new moderate T11 compression fracture. IMPRESSION: 1. Progressive bilateral hydronephrosis, likely secondary to UPJ type obstruction is 2. Fecal retention. No evidence of bowel obstruction. No evidence of free air 3. New T11 compression fracture 4. Lower lobe bronchiectasis with mucous plugging. CT LUMBAR SPINE WITHOUT CT DOSE: CLINICAL HISTORY: lower back pain TECHNIQUE: Helical images were acquired in transverse plane. Reformatted sagittal and coronal images were reviewed. A dose lowering technique was utilized adhering to the principles of ALARA. CONTRAST: No contrast was administered COMPARISON STUDY: Conventional radiographic study dated 02/25/2012 FINDINGS: There is a moderate lumbar levoscoliosis. L1-2 level: There is no evidence of significant disc bulge or focal herniation. There is no evidence of spinal or foraminal stenosis. L2-3 level: There is a mild circumferential disc bulge with minimal spinal canal narrowing L3-4 level: There is a circumferential disc bulge with moderate spinal stenosis L4-5 level: There is a circumferential disc bulge with mild spinal stenosis L5-S1 level: There is no evidence of significant disc bulge or focal herniation. There is no evidence of spinal or foraminal stenosis. There is bilateral hydronephrosis. IMPRESSION: 1. No acute fractures or subluxations within the lumbar spine 2. Bilateral hydronephrosis 3. 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 4. Moderate levoscoliosis ED Course 1609 signed up 1609 reviewed chart 1617 assessed patient 1645 presented patient to attending 1648 ordered CBC, CMP, UA. Ordered 500 ml NSS, Lidoderm patch, fentanyl 50mcg inj. CT Abd/pelv IV contrast only, CT Lumbar IV contrast only 1740 reviewed UA- neg. CBC - shows mild anemia Hgb 10.8. Lac wnl. 1834 CT shows - new T11 compression fracture. Neg for lumbar fracture. 1900 discussed with pt and family findings. Discussed discharge plan as below. Pt and family want to go home. Medical Decision 87 yof presenting with acute lower lumbar pain x 2 weeks, with no relief after oxycodone/APAP 5-325 x 2 days. Likely acute on chronic exacerbation of her scoliosis with element of muscle spasm, osteoporotic changes. CT of lumbar spine shows no fractures. CT of abd/pelvis shows: chronic stable hydronephrosis likely secondary to chronic UPJ type obstruction, New T11 compression fracture as well as fecal retention. CBC and CMP demonstrate mild anemia, and good renal function. UA negative. Treated with 500ml NSS and fentanyl 50mcg inj and lidoderm patch, 15 mg Toradol inj. Discussed at length with pharmacy options for pain management. Decision was made to go ahead and treat with nsaids given good renal function. Discussed at length with pt and family the findings of the scans, and the options of admitting, transferring to rehab, and going home and following up with PCP for home PT, and following up with Dr. Fernandez if she desires. Pt and family decide to go home with pain control as well as following up with PCP to arrange for home PT. Medication Reconcilliation Current Medication List: was personally reviewed by me Blood Pressure Screening Patient's blood pressure: Normal blood pressure Impression Primary Impression: Thoracic compression fracture Departure Information Dispostion Home / Self-Care Referrals Bo Perez M.D. (PCP) Patient Instructions Back Pain - [facility], ED Fx Comp Vertebral, My [facility] Additional Instructions For pain control of your back pain, please continue to take Oxycodone-APAP as prescribed, Tramadol as prescribed. Please also take Naproxyn as prescribed, and use a Lidoderm patch - apply for 12 hours and leave off for 12 hours. Please also take Colace tabs and Miralax as prescribed. Please call and follow up with your primary care physician to arrange for home physical therapy as discussed, for strengthening exercises to increase function. We also recommend you follow up with Dr. Fernandez who is Orthopedic surgery. Resident Tracking Resident Involvement: Resident Care Provided Care Provided: Adult ED
--- NOTE | 2017-07-12 18:16 | DIAGNOSTIC IMAGING REPORT ---
CT ABD/PELVIS IV CONTRAST ONLY CLINICAL HISTORY: Low back and abdominal pain COMPARISON STUDY: 06/03/2017 TECHNIQUE: Following the IV administration of 115 mL of Optiray-320, CT scan of the abdomen and pelvis was performed from the lung bases to the proximal femurs. Images are reviewed in the axial, sagittal, and coronal planes. IV contrast was administered without complication. A dose lowering technique was utilized adhering to the principles of ALARA. CT DOSE: 237.84 mGy.cm FINDINGS: Lower chest: There are bilateral bronchiectatic changes with areas of mucous plugging. Liver: There is mild central hepatic biliary ductal dilatation. There are no focal hepatic masses. Gallbladder: Mildly distended Spleen: Normal in size and attenuation. Pancreas: Unremarkable. Adrenal glands: Unremarkable. Kidneys: There is progressive bilateral hydronephrosis with pronounced dilatation of each renal pelvis there is a 9 mm right renal cortical cyst. Bowel: A virus the bowel is limited due to the lack of orally administered contrast. There is moderate fecal retention. There are no transition zones indicate bowel obstruction. There is no acute diverticulitis. There are no findings to indicate acute appendicitis. Peritoneum: There is no intraperitoneal free air or abdominal ascites. Vasculature: The abdominal aorta is normal in course and caliber. Adenopathy: None. Pelvic viscera: The uterus appears surgically absent. Skeletal structures: There is a pronounced levoscoliosis. There is a new moderate T11 compression fracture. IMPRESSION: 1. Progressive bilateral hydronephrosis, likely secondary to UPJ type obstruction is 2. Fecal retention. No evidence of bowel obstruction. No evidence of free air 3. New T11 compression fracture 4. Lower lobe bronchiectasis with mucous plugging. Electronically signed by: Kaiden Cruz M.D. 07/12/2017 6:15 PM Dictated Date/Time: 07/12/2017 6:08 PM
--- NOTE | 2017-07-12 18:18 | DIAGNOSTIC IMAGING REPORT ---
CT LUMBAR SPINE WITHOUT CT DOSE: CLINICAL HISTORY: lower back pain TECHNIQUE: Helical images were acquired in transverse plane. Reformatted sagittal and coronal images were reviewed. A dose lowering technique was utilized adhering to the principles of ALARA. CONTRAST: No contrast was administered COMPARISON STUDY: Conventional radiographic study dated 02/25/2012 FINDINGS: There is a moderate lumbar levoscoliosis. L1-2 level: There is no evidence of significant disc bulge or focal herniation. There is no evidence of spinal or foraminal stenosis. L2-3 level: There is a mild circumferential disc bulge with minimal spinal canal narrowing L3-4 level: There is a circumferential disc bulge with moderate spinal stenosis L4-5 level: There is a circumferential disc bulge with mild spinal stenosis L5-S1 level: There is no evidence of significant disc bulge or focal herniation. There is no evidence of spinal or foraminal stenosis. There is bilateral hydronephrosis. IMPRESSION: 1. No acute fractures or subluxations within the lumbar spine 2. Bilateral hydronephrosis 3. 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 4. Moderate levoscoliosis Electronically signed by: Kaiden Cruz M.D. 07/12/2017 6:17 PM Dictated Date/Time: 07/12/2017 6:15 PM
[2017-07-12] MEDS ORDERED: KETOROLAC TROMETHAMINE 15 MG/ML VIAL IM STA (19:27)
[2017-07-12] MEDS ORDERED: KETOROLAC TROMETHAMINE 30 MG/ML VIAL ONE (19:33)
[2017-07-12] MEDS ORDERED: LDDP5 TD (19:50)
[2017-07-12 19:58] VITALS: BP 209/85; PULSE 84; O2SAT 95
== END 2017-07-12 20:00 | disposition home or self-care (01) ==
LOC: C.EDB 14:15 → C.EDA 20:00
DX: M48.54XA Collapsed vertebra, not elsewhere classified, thoracic region, initial encounter for fracture (principal); Z91.81 History of falling; M41.9 Scoliosis, unspecified; I48.91 Unspecified atrial fibrillation; J44.9 Chronic obstructive pulmonary disease, unspecified; M19.90 Unspecified osteoarthritis, unspecified site; M81.0 Age-related osteoporosis without current pathological fracture; Z87.891 Personal history of nicotine dependence; Z79.82 Long term (current) use of aspirin; Z79.899 Other long term (current) drug therapy

== ENCOUNTER → 2017-08-20 | Outpatient (CLI) | payer BC ==
[~2017-08-20] MED LIST changes: +LDDP5 TD; -POLY335019 PO
--- NOTE | 2017-08-20 14:05 | DIAGNOSTIC IMAGING REPORT ---
CHEST 2 VIEWS ROUTINE HISTORY: 87 years-old Female [id number] acute cough COMPARISON: Chest radiograph 06/03/2017, chest CT 06/03/2017 TECHNIQUE: PA and lateral views of the chest FINDINGS: Patient is rotated to the left. Cardiomediastinal and hilar silhouettes are within normal limits. Biapical pleural-parenchymal scarring redemonstrated along with hyperinflation and emphysema. Bilateral reticular opacities compatible with areas of scarring. Subsegmental bibasilar opacities with blunting of the costophrenic angles appears unchanged compatible with scarring/atelectasis. No pneumothorax, pleural effusion, lobar airspace consolidation or overt pulmonary edema. Sigmoidal scoliosis of the thoracolumbar spine. Degenerative changes are noted within the shoulders and spine. Remote appearing bilateral rib fractures. IMPRESSION: Emphysema with subsegmental bibasilar atelectasis/scarring. No acute process. The above report was generated using voice recognition software. It may contain grammatical, syntax or spelling errors. Electronically signed by: Rell Reyez M.D. 08/20/2017 2:03 PM Dictated Date/Time: 08/20/2017 2:01 PM
== END | disposition home or self-care (01) ==
LOC: C.RAD1850 13:32
PROVIDERS: ATTEND Physician Assistant Medical
DX: R05 Cough (principal); J43.9 Emphysema, unspecified

== ENCOUNTER → 2017-09-09 | Day surgery (SDC) | payer BC ==
[2017-08-30 14:46] VITALS: BMI 17.0
--- NOTE | 2017-08-30 15:17 | PAT Medication Instructions ---
Service Date Aug 30, 2017. Current Home Medication List Albuterol Hfa (Ventolin Hfa), 1 PUFF INH Q6 Aspirin (Aspirin 81), 1 TAB PO QAM Calcium Carbonate-Vitamin D (Calcium 600 + D), 1 TAB PO QAM Latanoprost (Xalatan 0.005% Oph Hailey), 1 DROPS OPB @2100 Lorazepam (Ativan), 0.5 MG PO BID PRN Metoprolol Succ (Toprol Xl) (Toprol-Xl), 12.5 MG PO QAM Multivitamin (Multivitamin), 1 TAB PO QAM Pantoprazole (Protonix), 40 MG PO 1700 Potassium Chloride (Micro-K Ext Rel), 10 MEQ PO QAM Sertraline (Zoloft), 25 MG PO QAM Simvastatin (Zocor), 10 MG PO Q2D Tramadol (Ultram), 50 MG PO BID PRN for Pain Medication Instructions For Your Scheduled Surgery - Continue as directed: Simvastatin (Zocor), 10 MG PO Q2D - Check with surgeon and cardiolgoist for instructions: Aspirin (Aspirin 81), 1 TAB PO QAM - Hold the following medications the morning of surgery: Calcium Carbonate-Vitamin D (Calcium 600 + D), 1 TAB PO QAM Multivitamin (Multivitamin), 1 TAB PO QAM Potassium Chloride (Micro-K Ext Rel), 10 MEQ PO QAM - Take the following medications the morning of surgery with a sip of water: Tramadol (Ultram), 50 MG PO BID PRN for Pain (okay to take up to 4 hours prior to surgery if needed) Sertraline (Zoloft), 25 MG PO QAM Metoprolol Succ (Toprol Xl) (Toprol-Xl), 12.5 MG PO QAM Lorazepam (Ativan), 0.5 MG PO BID PRN (if needed) Albuterol Hfa (Ventolin Hfa), 1 PUFF INH Q6 - Take the following medications as scheduled the night before surgery: Tramadol (Ultram), 50 MG PO BID PRN for Pain (if neeeded) Pantoprazole (Protonix), 40 MG PO 1700 Lorazepam (Ativan), 0.5 MG PO BID PRN (if needed) Latanoprost (Xalatan 0.005% Oph Hailey), 1 DROPS OPB @2100\ Albuterol Hfa (Ventolin Hfa), 1 PUFF INH Q6 If you have any questions please call us at [phone] or [phone] or [phone]
[2017-08-30 16:04] LABS: BASO % 0.3 %; BASO ABS # 0.02 K/uL (0-0.2); EOS % 0.5 %; EOS ABS # 0.03 K/uL (0-0.5); HEMATOCRIT 32.6 % (37-47); HEMOGLOBIN 10.9 g/dL (12.0-16.0); IG# 0.01 K/uL (0.00-0.02); MEAN CELL VOLUME 86.2 fL (80-100); MEAN CORPUSCULAR HEMOGLOBIN 28.8 pg (25-34); MEAN CORPUSCULAR HGB CONC 33.4 g/dl (32-36); MEAN PLATELET VOLUME 9.5 fL (7.4-10.4); MONO % 9.8 %; MONO ABS # 0.63 K/uL (0.11-0.59); NEUT % 72.2 %; NEUT ABS # 4.67 K/uL (1.4-6.5); PLATELET COUNT 303 K/uL (130-400); RED CELL DISTRIBUTION WIDTH SD 43.9 fL (36.4-46.3); WHITE BLOOD COUNT 6.46 K/uL (4.8-10.8)
[2017-08-30 16:13] LABS: INR 1.2 (0.9-1.1); PTT PATIENT 25.9 SECONDS (21.0-31.0)
[2017-08-30 16:15] LABS: CREATININE 1.07 mg/dl (0.60-1.20); POTASSIUM 4.4 mmol/L (3.5-5.1)
--- NOTE | 2017-09-08 21:01 | HISTORY & PHYSICAL EXAMINATION ---
DATE OF ADMISSION: 09/09/2017 WORKING DIAGNOSIS: Compression fracture T11 vertebrae. PROCEDURE: Tomorrow at [facility] [place], kyphoplasty, T11. HISTORY OF PRESENT ILLNESS: Evangelina is delightful. She is 87. She is immensely compromised with a compression fracture with slight neurological deficit. She is poorly mobilized. PAST MEDICAL HISTORY: Positive for depression and hypertension. PAST SURGICAL HISTORY: Negative. ALLERGIES: None. FAMILY HISTORY: Heart disease. SOCIAL HISTORY: She is . No alcohol, no tobacco. Active lifestyle. REVIEW OF SYSTEMS: Denies fevers, sweats, chills. Denies earaches, sinus problems. Denies chest pain, palpitations. No asthma, wheezing. No bowel and bladder issues. Denies confusion, memory loss or depression. She has musculoskeletal back pain, stiffness, weakness and difficulty with ambulation. MEDICATIONS: Metoprolol, Zoloft, statins. OBJECTIVE: GENERAL: She is alert, oriented. Visual analog scale of 10. She is 5 feet 1 inches, 97 pounds. VITAL SIGNS: Blood pressure 130/80, pulse of 80, respiratory rate 16, temperature 97.4. HEENT: Pupils react to light and accommodation. Ear, nose and throat clear. CARDIAC: Normal S1, S2, no S3. LUNGS: Clear. ABDOMEN: Soft and nontender. Bowel sounds present. NEUROVASCULAR: 5/5 strength throughout. Sensory vascularity normal throughout. No deficit. IMAGES: Demonstrate a compression fracture at T11. IMPRESSION: T11 compression fracture. DISPOSITION: Includes a kyphoplasty of the T11 vertebrae.
[~2017-09-09] VITALS: Ht 157.5 cm; Wt 43.0 kg
[~2017-09-09] MED LIST changes: -ASPCH81X PO; +ASPI-435 PO; +ATROPINE SULFATE 0.1 MG/ML 5ML SYR IV PRN; +BUPIVACAINE/EPINEPHRINE 0.5% MPF 1:200,000 30 ML VIAL ONE; +CEFAZOLIN 1000MG IV PUSH 7.5 ML IV SCH; +CEFAZOLIN SOD 1000MG/7.5 ML IV PUSH IV ONE; +CONRAY 60% 50 ML VIAL ONE; +DEXAMETHASONE SOD INJ 4 MG/ML VIAL ONE; +EpHEDrine SULFATE INJ 50 MG/ML AMP IV PRN; +FENTANYL CITRATE INJ 50 MCG/1 ML 2 ML VIAL IV PRN; +FENTANYL CITRATE INJ 50 MCG/1 ML 2 ML VIAL ONE; +GLYCOPYRROLATE INJ 0.2 MG/ML VIAL ONE; +HYDR-5688 PO; +HYDROmorphone INJ 1 MG/ML SYR IV PRN; +KETAMINE HCL INJ 50 MG/ML 10 ML VIAL ONE; +LACTATED RINGER'S 1000ML 1,000 ML IV SCH; -LDDP5 TD; +LIDOCAINE HCL 2% 2 ML VIAL (20MG/ML) ONE; +MULT-506 PO; +NEOSTIGMINE METHYLSULFATE 1 MG/ML 10ML VIAL ONE; +ONDANSETRON INJ 2 MG/ML 2 ML VIAL IV PRN; +ONDANSETRON INJ 2 MG/ML 2 ML VIAL ONE; -OXYC1TAB3 PO; +OXYCODONE/ACETAMINOPHEN 5-325 TAB PO PRN; +PHENYLEPHRINE 100MCG/ML 5ML SYR IV PRN; +PHENYLEPHRINE 100MCG/ML 5ML SYR ONE; +PROPOFOL IV EMULSION 10 MG/ML 20 ML VIAL IV ONE; +ROCURONIUM BROMIDE 10 MG/ML 5 ML VIAL IV ONE; +SODIUM CHLORIDE 0.9% 1000ML 1,000 ML IV SCH; +SUCCINYLCHOLINE 100MG/5ML SYR IV ONE
[2017-09-09 09:22] VITALS: BP 168/84; PULSE 89; TEMP 36.4; O2SAT 96; Ht 157.5 cm; Wt 43.0 kg
--- NOTE | 2017-09-09 10:43 | History & Physical Bridge Note ---
H&P Re-Evaluation Bridge Note: I have examined the patient, reviewed the History & Physical and in the interval since the performance of the History & Physical I have noted the following changes of clinical significance: No changes noted
--- NOTE | 2017-09-09 12:07 | [facility] Post Operative Brief Note ---
Immediate Operative Summary Operative Date Sep 09, 2017. Pre-Operative Diagnosis Compression Fracture T11 Post-Operative Diagnosis Compression Fracture T11 Procedure(s) Performed T[address] Fernandez Value Stream Manager Surgeon(s) Ever Roberts PA-C Estimated Blood Loss 2ml Findings Consistent with Post-Op Diagnosis Specimens none per surgeon Drains None Anesthesia Type General Complication(s) none Disposition Disposition: Recovery Room / PACU
--- NOTE | 2017-09-09 12:16 | Discharge Instructions ---
Discharge Instructions Date of Service Sep 09, 2017. Admission Reason for Admission: T11 Compression Fracture Discharge Discharge Diagnosis / Problem: SAME ABOVE Discharge Goals Goal(s): Decrease discomfort, Improve function Activity Recommendations Activity Limitations: as noted below Lifting Limitations: gradually increase as tolerated Exercise/Sports Limitations: until after follow-up appointment Shower/Bathe: tomorrow . Instructions / Follow-Up Instructions / Follow-Up MEDICATIONS: Please take your prescriptions as instructed at your pre-op appointment. SPECIAL CARE: The following information is intended to answer some of the common questions and concerns regarding your surgery. Each patient is an individual and receives individual counselling throughout the course of treatment, from diagnosis to surgery all the way through recovery. What follows is not an exhaustive list, but should be a useful guide to some of the common questions and concerns patients have regarding their surgeries. These are not provided to keep you from calling us; rather, they give you something accurate and concrete to reference as you recover from your procedure. If you need us, we are available to you. As always, if you are not sure about something, call us at [phone]. MEDICAL EMERGENCIES: For these conditions, call 911 or go to your local hospital-based Emergency Department - not [facility] or equivalent. * Paralysis * Severe chest pain or difficulty breathing * Swelling or redness of either leg Spine procedures can be rather complex and though complications are rare, they do occur. In such cases, effective advice regarding emergency situations cannot always be addressed over the telephone. You may be referred to the emergency department for more effective management of your problem. Activity Limitations: It is important to give your body time to heal, so please limit your activities : * In general, don't do anything that moves your spine too much. You should avoid contact sports, twisting or heavy lifting while you recover. * 5-10 pounds is all you should attempt to lift. * You should not plan on driving for approximately 3 weeks and you should avoid traveling more than 30-45 minutes at a time. Longer trips should be broken down with walking breaks spaced appropriately. * Physical therapy is not usually required. * Walking and good posture practices will help you recover and regain your function. * Avoid straining or sudden changes in position. * In general, the goal is to take it easy and recover. Don't cause any new problems. Just relax. Showers: * Do not take a bath, use a Jacuzzi or hot tub or otherwise submerge your incision. * It is usually safe to take a shower 4-5 days after your surgery. * Your incision does not require any special creams or ointments. * Simply clean it with soap and water, dry and re-dress with a clean bandage afterwards. Incision: * Keep incision clean, dry and protected until your first follow-up appointment. * Some amount of drainage and redness is normal. Any drainage should be fairly clear and not have a foul odor. * If you feel anything is wrong or you have excessive drainage, please call us. * Your stitches and melissa will be removed 10-14 days after your surgery. At the time of your first post-op visit. * Neck surgeries are typically closed with a suture underneath the skin. The steri-strips over the incision should be maintained until we see you in the office. Bracing: * You may be provided with a back or neck brace to encourage good posture and prevent injury. It will remind you not to do too much as you heal and will alert others to the fact that you have had a surgery. * Back braces may be removed for showers and when you are resting at home. They must be worn when you are walking around for any period of time or for travel. * For neck surgery, you will likely be provided with two cervical collars. The soft collar (Underwood or foam rubber) is worn most commonly throughout the day and while sleeping. The plastic collar (provided at the hospital) is for showering/bathing. * Except while eating, collars should remain in place. More specifically, bracing is provided for a purpose and should be worn. * Please obtain your brace or collars prior to your operation and bring them to the hospital with you on the day of surgery. * You should also bring your collars to your post-op appointment with Dr. Fernandez. You should always take good care of your body and practice healthy habits, especially following surgery. You should: * Follow your doctor's treatment plan * Sit and stand properly with good posture (ears over shoulders, shoulders over hips) Don't slouch * Learn to lift correctly * Exercise regularly (low-impact aerobic exercise is especially good, but check with your doctor first) * Generally, be up and walking for 5-10 minutes at a time at least 3-4 times per day from the day you get home * Increasing walking to tolerance until you can walk for 20-30 minutes at a time * Attain and maintain a healthy body weight * Eat healthy foods ( a well-balanced, low-fat diet rich in fruits and vegetables) and get enough calcium * Avoid excessive use of alcohol When to call our office - If you notice any of the following: * Increased pain not relieve by pain medicine * Fevers greater then 100 degrees F, chills or flu symptoms * Increased redness around incision * Drainage from the incision that is not clear * Any foul smelling drainage * Swelling or fluid collection beneath the skin Miscellaneous: * In the hospital, you may be given a walker or cane for support while walking. These are temporary needs and are intended to prevent injuries due to falls. You may discontinue them when you feel strong and steady enough on your feet. * Sleep in a comfortable position. We find that many patients find a lounge chair or recliner with several pillows to be beneficial in the early post-operative period. * The support stockings should be used for 7-10 days and may be discontinued when you are back to walking more and conducting usual household activities. No problem is insignificant. We are here to help you and get you well. Contact us at [phone]. Definitions: Foraminotomy: If part of the disc or a bone spur (osteophyte) is pressing on a nerve as it leaves the vertebra (through an exit called the foramen), a foraminotomy may be done. Otomy means "to make an opening." A foraminotomy is making the opening of the foramen larger, so the nerve can exit without being compressed. Laminotomy: Similar to the foraminotomy, a laminotomy makes a larger opening, this time in your bony plate protecting your spinal canal and spinal cord (the lamina). The lamina may be pressing on your nerve, so the surgeon may make more room for the nerves using a laminotomy. Laminectomy: Sometimes, a laminotomy is not sufficient. The surgeon may need to remove all or part of the lamina. This procedure is called a laminectomy. This can often be done at many levels without any harmful effects. Current Hospital Diet Patient's current hospital diet: Discharge Diet Recommended Diet: Regular Diet Procedures Procedures Performed: T11 Kyphoplasty Pending Studies Studies pending at discharge: no Medical Emergencies . Who to Call and When: Medical Emergencies: If at any time you feel your situation is an emergency, please call 911 immediately. . Non-Emergent Contact Non-Emergency issues call your: Primary Care Provider . "Provider Documentation" section prepared by Ever Roberts. .
--- NOTE | 2017-09-09 12:26 | DIAGNOSTIC IMAGING REPORT ---
LUMBAR SPINE 2 OR 3 VIEW CLINICAL HISTORY: T11 KYPHOPLASTY TECHNIQUE: Image intensifier COMPARISON STUDY: Lumbar spine 07/12/2017 FINDINGS: Image intensifier was utilized for T11 kyphoplasty. IMPRESSION: Image intensifier was utilized for T11 kyphoplasty. The above report was generated using voice recognition software. It may contain grammatical, syntax or spelling errors. Electronically signed by: Satya Schmdit M.D. 09/09/2017 12:24 PM Dictated Date/Time: 09/09/2017 12:24 PM
--- NOTE | 2017-09-09 12:27 | OPERATIVE REPORT ---
DATE OF OPERATION: 09/09/2017 PREOPERATIVE DIAGNOSIS: Compression fracture of T11 vertebrae. POSTOPERATIVE DIAGNOSIS: Same. PROCEDURE: Included a kyphoplasty of T11 vertebrae. SURGEON: Dr. Fernandez. TOOL TENDER: Ever Roberts PA-C. COMPLICATIONS: Zero. BLOOD LOSS: Less than 5 mL. DESCRIPTION OF PROCEDURE: The patient was taken to the operating room, a general intubated, anesthetic provided, the patient placed on the Geovani frame. Scrubbed, prepped and draped sterile. We made a skin incision right over the pedicle of T11. We engaged a trocar into the vertebral body. We used a drill then the balloon. We were able to get approximately 2 mL of methyl methacrylate into the vertebral body. We irrigated and closed with nylon suture. Sterile dressings applied. The patient then returned to recovery room satisfactory and stable. No apparent interoperative complications. Sponge and needle count correct at the close. I attest to the content of the Intraoperative Record and any orders documented therein. Any exception s are noted below.
--- NOTE | 2017-09-09 14:18 | Anesthesiology Progress Note ---
Anesthesia Post Op Note Date & Time Sep 09, 2017 at 14:18 Vital Signs Pain Intensity: 0 Vital Signs Past 12 Hours Date Time Temp Pulse Resp B/P (MAP) Pulse Ox O2 Delivery O2 Flow Rate FiO2 09/09/17 14:00 36.1 81 18 136/68 93 Room Air 09/09/17 13:50 36.1 84 18 138/65 93 Room Air 09/09/17 13:40 76 18 143/60 94 Room Air 09/09/17 13:30 80 18 139/64 95 Room Air 09/09/17 13:20 79 18 143/65 100 Nasal Cannula 3 09/09/17 13:10 76 18 156/68 100 Nasal Cannula 3 09/09/17 13:00 76 18 149/61 100 Oxymask 10 09/09/17 12:50 83 18 148/72 100 Oxymask 10 09/09/17 12:40 36.4 87 18 155/73 100 Oxymask 10 09/09/17 09:22 36.4 89 18 168/84 (112) 96 Room Air Notes Mental Status: alert / awake / arousable, participated in evaluation Pt Amnestic to Procedure: Yes Nausea / Vomiting: adequately controlled Pain: adequately controlled Airway Patency, RR, SpO2: stable & adequate BP & HR: stable & adequate Hydration State: stable & adequate Anesthetic Complications: no major complications apparent
[2017-09-09 15:35] VITALS: BP 166/74; PULSE 80; TEMP 36.5; O2SAT 96
== END | disposition home or self-care (01) ==
LOC: C.ACU 08:31
PROVIDERS: ATTEND Orthopaedic Surgery Orthopaedic Surgery of the Spine
DX: M48.54XA Collapsed vertebra, not elsewhere classified, thoracic region, initial encounter for fracture (principal); J44.9 Chronic obstructive pulmonary disease, unspecified; I48.91 Unspecified atrial fibrillation; I10 Essential (primary) hypertension; R13.10 Dysphagia, unspecified; K21.9 Gastro-esophageal reflux disease without esophagitis; M81.0 Age-related osteoporosis without current pathological fracture; F32.9 Major depressive disorder, single episode, unspecified; Z88.1 Allergy status to other antibiotic agents; Z82.49 Family history of ischemic heart disease and other diseases of the circulatory system

== ENCOUNTER → 2018-02-04 | Outpatient (CLI) | payer BC ==
[~2018-02-04] MED LIST changes: -ATROPINE SULFATE 0.1 MG/ML 5ML SYR IV PRN; -BUPIVACAINE/EPINEPHRINE 0.5% MPF 1:200,000 30 ML VIAL ONE; -CEFAZOLIN 1000MG IV PUSH 7.5 ML IV SCH; -CEFAZOLIN SOD 1000MG/7.5 ML IV PUSH IV ONE; -CONRAY 60% 50 ML VIAL ONE; -DEXAMETHASONE SOD INJ 4 MG/ML VIAL ONE; -EpHEDrine SULFATE INJ 50 MG/ML AMP IV PRN; -FENTANYL CITRATE INJ 50 MCG/1 ML 2 ML VIAL IV PRN; -FENTANYL CITRATE INJ 50 MCG/1 ML 2 ML VIAL ONE; -GLYCOPYRROLATE INJ 0.2 MG/ML VIAL ONE; -HYDROmorphone INJ 1 MG/ML SYR IV PRN; -KETAMINE HCL INJ 50 MG/ML 10 ML VIAL ONE; -LACTATED RINGER'S 1000ML 1,000 ML IV SCH; -LIDOCAINE HCL 2% 2 ML VIAL (20MG/ML) ONE; -NEOSTIGMINE METHYLSULFATE 1 MG/ML 10ML VIAL ONE; -ONDANSETRON INJ 2 MG/ML 2 ML VIAL IV PRN; -ONDANSETRON INJ 2 MG/ML 2 ML VIAL ONE; -OXYCODONE/ACETAMINOPHEN 5-325 TAB PO PRN; -PHENYLEPHRINE 100MCG/ML 5ML SYR IV PRN; -PHENYLEPHRINE 100MCG/ML 5ML SYR ONE; -PROPOFOL IV EMULSION 10 MG/ML 20 ML VIAL IV ONE; -ROCURONIUM BROMIDE 10 MG/ML 5 ML VIAL IV ONE; -SODIUM CHLORIDE 0.9% 1000ML 1,000 ML IV SCH; -SUCCINYLCHOLINE 100MG/5ML SYR IV ONE; -TRAM-10 PO
--- NOTE | 2018-02-04 11:48 | DIAGNOSTIC IMAGING REPORT ---
LEFT LOWER EXTREMITY VENOUS DOPPLER CLINICAL HISTORY: Left lower extremity pain and edema. COMPARISON STUDY: No previous studies for comparison. TECHNIQUE: Sonography of the deep venous system of the left lower extremity was performed. Compression and augmentation were evaluated. FINDINGS: The left common femoral, superficial femoral and popliteal veins were compressible. Augmentation was normal. Flow was shown within the deep calf vessels. IMPRESSION: No evidence of deep venous thrombus within the left lower extremity. Electronically signed by: Claudio Patel M.D. 02/04/2018 11:47 AM Dictated Date/Time: 02/04/2018 11:46 AM
== END | disposition home or self-care (01) ==
LOC: C.ULTR 10:59
PROVIDERS: ATTEND Physician Assistant Medical
DX: R60.0 Localized edema (principal); M79.662 Pain in left lower leg

== ENCOUNTER 2021-12-25 18:52 | Inpatient (IN) ==
[2021-12-25] MEDS ORDERED: ALBUT/IPRATROP 3MG/0.5MG NEB 3 ML VIAL NEB STA (19:03)
--- NOTE | 2021-12-25 19:08 | Emergency Department Note ---
Impression & Plan Hypoxia, Near syncope, Weakness, Leukocytosis, Acute UTI, Elevated troponin ED Provider Note NAME: CALLUM LEMUS AGE: 89 SEX: F : 1930 ARRIVES VIA: Ambulance INFORMANT: [ems, nursing] ED PROVIDER(S): [Blake Yousif MD] CHIEF COMPLAINT: Syncope HISTORY OF PRESENT ILLNESS: The patient is an 89-year-old female with dementia. She lives with family. By EMS report, she had a witnessed syncopal event/fall. She was vaughan in color. She seemed a bit more confused today than she does at baseline. No reports of pain or injury from the fall. As per EMS, her O2 saturation was low when they arrived but seemed to improve with O2 supplementation. She does have a history of COPD. She has chronic A. fib. She is not on any anticoagulation. I cannot obtain any history from the patient because of her dementia. No family at the bedside. Of note, eventually the family arrived, apparently the patient slumped forward more so than fell. No true reported loss of consciousness. She was weak and ashen in color. She was brought for evaluation. She had seen fine earlier in the day REVIEW OF SYSTEMS: Unobtainable given her dementia. PMHx/PSHx: See Below SOCIAL HISTORY: See Below. PHYSICAL EXAM: GENERAL: Patient is in mild distress, agitated. HEENT: No acute trauma, normocephalic atraumatic, mucous membranes dry, no nasal congestion, no scleral icterus. NECK: No stridor, no adenopathy, no obvious C-spine tenderness, trachea is midline. LUNGS: Clear to auscultation bilaterally when listening anterior. She does appear to have an increased respiratory rate and is using some accessory muscles to take a breath. No wheezing. HEART: Mildly tachycardic, regular rhythm, no obvious murmurs. ABDOMEN: Soft, nontender, bowel sounds positive, no peritonitis. EXTREMITIES: No cyanosis or edema, full range of motion of all the joints without pain or difficulty. No extremity deformities. NEUROLOGIC: Awake and alert, confused, no acute motor or sensory deficits, no focal weakness. SKIN: No rash, no jaundice, no diaphoresis. DIFFERENTIAL DIAGNOSIS: Infection, dehydration, UTI, COVID-19, metabolic abnormality, hypo/hyperglycemia, electrolyte disturbance, anemia, hypoxia, cardiac sources, dysrhythmia, intracerebral event, C-spine injury, toxicologic issues, stroke, TIA, as well as other pathologies. EMERGENCY DEPARTMENT COURSE/PROCEDURES: ECG: Indication was shortness of breath and syncope. The ECG shows a sinus tachycardia with a rate of 119. There is some nonspecific ST change. LVH is present. There is no ST elevation, no PVCs. The QTc is 427. Continuous Cardiac Monitoring: An order was placed for continuous cardiac monitoring. The monitor shows a rate of 113 with sinus tachycardia. Critical Care Note: I have personally spent 49 minutes of critical care time in the direct management of this patient. This includes bedside care, interpretation of diagnostic studies, and testing, discussion with consultants, patient, and family members, and other required patient management activities. This 49 minutes is in excess of all separately billable procedures. MEDICAL DECISION MAKING: There is a moderate leukocytosis, this could be consistent with infection or just the stress of this situation. There was a very mild anemia. There was a normal platelet count. No significant electrolyte abnormality, no renal failure. Lactic acid level was not elevated making severe sepsis less likely. Alk phos slightly elevated, the remaining liver enzymes were unremarkable. TSH was elevated however, the T4 was normal. ECG showed a sinus tachycardia without any obvious acute ischemic change. Cardiac enzyme testing x1 was slightly elevated. This elevation could be consistent with cardiac injury or potentially demand mismatch. Urinalysis showed infection versus contamination. COVID, influenza and RSV testing was negative. Chest x-ray showed findings consistent with COPD, there was no pneumonia. Brain CT showed no acute bleed or mass- effect. C-spine CT showed no acute fracture. Pelvis film did not show any hip or pelvic fracture. The patient appeared dehydrated clinically. She was given IV saline, 1 L in total. She was given a DuoNeb to help with her COPD and reported hypoxia. She was given IV cefepime. The patient is in need of a hospital stay. She has had a collapse today. She has a leukocytosis, she appears dehydrated. Her cardiac troponin is elevated. She is more confused and was hypoxic as per EMS. Further care in the hospital is warranted. I did speak with the patient and family, I spoke with case management. The on-call hospitalist was consulted. Past Med/Surg History Medical History (Updated 12/25/21 @ 23:26 by Blake Yousif MD) COPD (chronic obstructive pulmonary disease) Multiple fractures of ribs of right side Nephrolithiasis Osteoarthritis Osteoporosis Scoliosis Surgical History H/O colonoscopy (~2009) Family History Other No pertinent family history Social History Smoking Status: Former smoker Number of Years Since Quit: 36; Preferred Language: American Current Living Situation: Family current occupational status: retired Feels Safe at Home: Yes Allergies Allergies Allergy/AdvReac Type Severity Reaction Status Date / Time erythromycin base AdvReac Intermediate NAUSEA Verified 09/25/20 15:09 Home Meds Previous Rx's Medication Instructions Recorded aspirin 81 mg tablet,delayed 81 mg PO DAILY #30 tabs 01/11/19 release (Aspir-) simvastatin 10 mg tablet 10 mg PO DAILY #90 tabs 03/18/21 potassium chloride 10 mEq 10 meq PO DAILY #90 tabs 04/22/21 tablet,extended release(part/cryst) (Klor-Con M) pantoprazole 20 mg tablet,delayed 20 mg PO DAILY #90 tabs 04/30/21 release metoprolol succinate 25 mg 12.5 mg PO DAILY #30 tabs 08/04/21 tablet,extended release 24 hr lorazepam 0.5 mg tablet 0.5 mg PO BID PRN Anxiety #90 tabs 09/15/21 sertraline 25 mg tablet See Rx Instructions .Route 10/14/21 .COMPLEX #90 tabs donepezil 10 mg tablet 10 mg PO HS #90 tabs 11/18/21 Results & Data (ED) Vital Signs Vital Signs - 24 hr 12/25/21 19:07 12/25/21 19:08 12/25/21 19:03 Temperature 36.8 C 36.8 C Temperature Source Oral Oral Pulse Rate 111 H Pulse Rate [Right Finger] 113 H Pulse Rate from SpO2 Sensor Pulse Rhythm Regular Pulse Rhythm [Right Finger] Regular Pulse Strength [Right Finger] Normal Respiratory Rate 28 H 22 Respiratory Effort / Characteristics Spontaneous Spontaneous Respiratory Depth Shallow Shallow Respiratory Pattern Tachypnea Tachypnea Blood Pressure 149/85 H Blood Pressure [Right Arm] 149/85 H Blood Pressure Mean 106 Blood Pressure Mean [Right Arm] 106 Blood Pressure Position Lying Blood Pressure Position [Right Arm] Lying Pulse Oximetry 86 L 96 94 Oxygen Delivery Method Room Air Nasal Cannula Nasal Cannula Oxygen Flow Rate 2 2 Sepsis Recent Fever Within 48 Hours No Sepsis New/Unexplained Change in Mental Status No Sepsis Action Taken by Nursing Physician Notified 12/25/21 19:02 12/25/21 19:04 12/25/21 19:10 Temperature Temperature Source Pulse Rate 118 H 112 H Pulse Rate [Right Finger] Pulse Rate from SpO2 Sensor 116 H 101 H 111 H Pulse Rhythm Pulse Rhythm [Right Finger] Pulse Strength [Right Finger] Respiratory Rate 30 H 31 H Respiratory Effort / Characteristics Respiratory Depth Respiratory Pattern Blood Pressure 149/85 H Blood Pressure [Right Arm] Blood Pressure Mean 106 Blood Pressure Mean [Right Arm] Blood Pressure Position Blood Pressure Position [Right Arm] Pulse Oximetry 87 L 96 98 Oxygen Delivery Method Oxygen Flow Rate Sepsis Recent Fever Within 48 Hours Sepsis New/Unexplained Change in Mental Status Sepsis Action Taken by Nursing 12/25/21 19:20 12/25/21 19:30 12/25/21 19:40 Temperature Temperature Source Pulse Rate 114 H 110 H 112 H Pulse Rate [Right Finger] Pulse Rate from SpO2 Sensor 102 H 111 H 112 H Pulse Rhythm Pulse Rhythm [Right Finger] Pulse Strength [Right Finger] Respiratory Rate 28 H 37 H 17 Respiratory Effort / Characteristics Respiratory Depth Respiratory Pattern Blood Pressure 134/73 Blood Pressure [Right Arm] Blood Pressure Mean 93 Blood Pressure Mean [Right Arm] Blood Pressure Position Blood Pressure Position [Right Arm] Pulse Oximetry 97 97 97 Oxygen Delivery Method Oxygen Flow Rate Sepsis Recent Fever Within 48 Hours Sepsis New/Unexplained Change in Mental Status Sepsis Action Taken by Nursing 12/25/21 19:50 12/25/21 20:00 12/25/21 20:00 Temperature Temperature Source Pulse Rate 112 H 107 H Pulse Rate [Right Finger] Pulse Rate from SpO2 Sensor 110 H 107 H Pulse Rhythm Pulse Rhythm [Right Finger] Pulse Strength [Right Finger] Respiratory Rate 14 32 H Respiratory Effort / Characteristics Respiratory Depth Respiratory Pattern Blood Pressure 115/65 Blood Pressure [Right Arm] Blood Pressure Mean 81 Blood Pressure Mean [Right Arm] Blood Pressure Position Blood Pressure Position [Right Arm] Pulse Oximetry 98 99 Oxygen Delivery Method Oxygen Flow Rate Sepsis Recent Fever Within 48 Hours Sepsis New/Unexplained Change in Mental Status Sepsis Action Taken by Nursing 12/25/21 20:10 12/25/21 20:20 12/25/21 20:30 Temperature Temperature Source Pulse Rate 108 H 110 H Pulse Rate [Right Finger] Pulse Rate from SpO2 Sensor 107 H 110 H Pulse Rhythm Pulse Rhythm [Right Finger] Pulse Strength [Right Finger] Respiratory Rate 27 H 24 Respiratory Effort / Characteristics Respiratory Depth Respiratory Pattern Blood Pressure 159/76 H Blood Pressure [Right Arm] Blood Pressure Mean 103 Blood Pressure Mean [Right Arm] Blood Pressure Position Blood Pressure Position [Right Arm] Pulse Oximetry 99 97 Oxygen Delivery Method Oxygen Flow Rate Sepsis Recent Fever Within 48 Hours Sepsis New/Unexplained Change in Mental Status Sepsis Action Taken by Nursing 12/25/21 20:30 12/25/21 20:40 12/25/21 21:03 Temperature Temperature Source Pulse Rate 107 H Pulse Rate [Right Finger] Pulse Rate from SpO2 Sensor 117 H 110 H 106 H Pulse Rhythm Pulse Rhythm [Right Finger] Pulse Strength [Right Finger] Respiratory Rate 24 34 H 21 Respiratory Effort / Characteristics Respiratory Depth Respiratory Pattern Blood Pressure Blood Pressure [Right Arm] Blood Pressure Mean Blood Pressure Mean [Right Arm] Blood Pressure Position Blood Pressure Position [Right Arm] Pulse Oximetry 87 L 97 87 L Oxygen Delivery Method Oxygen Flow Rate Sepsis Recent Fever Within 48 Hours Sepsis New/Unexplained Change in Mental Status Sepsis Action Taken by Nursing 12/25/21 21:03 12/25/21 21:10 12/25/21 21:20 Temperature Temperature Source Pulse Rate 107 H 99 H Pulse Rate [Right Finger] Pulse Rate from SpO2 Sensor 106 H 98 H Pulse Rhythm Pulse Rhythm [Right Finger] Pulse Strength [Right Finger] Respiratory Rate 16 32 H Respiratory Effort / Characteristics Respiratory Depth Respiratory Pattern Blood Pressure 130/87 Blood Pressure [Right Arm] Blood Pressure Mean 101 Blood Pressure Mean [Right Arm] Blood Pressure Position Blood Pressure Position [Right Arm] Pulse Oximetry 92 94 Oxygen Delivery Method Oxygen Flow Rate Sepsis Recent Fever Within 48 Hours Sepsis New/Unexplained Change in Mental Status Sepsis Action Taken by Nursing 12/25/21 21:30 12/25/21 21:30 12/25/21 21:40 Temperature Temperature Source Pulse Rate 101 H 100 H Pulse Rate [Right Finger] Pulse Rate from SpO2 Sensor 106 H 99 H Pulse Rhythm Pulse Rhythm [Right Finger] Pulse Strength [Right Finger] Respiratory Rate 32 H 37 H Respiratory Effort / Characteristics Respiratory Depth Respiratory Pattern Blood Pressure 114/57 L Blood Pressure [Right Arm] Blood Pressure Mean 76 Blood Pressure Mean [Right Arm] Blood Pressure Position Blood Pressure Position [Right Arm] Pulse Oximetry 93 93 Oxygen Delivery Method Oxygen Flow Rate Sepsis Recent Fever Within 48 Hours Sepsis New/Unexplained Change in Mental Status Sepsis Action Taken by Jail Medications Current Medication List: was personally reviewed by me Laboratory Data Attestation: I reviewed the patient's lab results. Result diagrams: 12/25/21 18:30 12/25/21 18:30 Lab Results 12/25/21 12/25/21 12/25/21 Range/Units 18:30 18:30 18:30 WBC 15.01 H (4.8-10.8) K/ul RBC 3.98 (3.93-5.22) M/uL Hgb 11.4 L (12.0-16.0) g/dl Hct 36.4 (34.1-44.9) % MCV 91.5 (80.0-100.0) fL MCH 28.6 (25.0-34.0) pg MCHC 31.3 L (32.0-36.0) g/dL RDW Std Deviation 46.5 H (36.4-46.3) fL RDW Coeff of Mj 13.8 (11.5-14.5) % Plt Count 249 (130-400) K/uL MPV 11.0 (9.4-12.3) fL Immature Gran % (Auto) 0.7 % Neut % (Auto) 75.7 % Lymph % (Auto) 14.9 % Cole % (Auto) 8.5 % Eos % (Auto) 0.0 % Baso % (Auto) 0.2 % Neut # (Auto) 11.36 H (1.4-6.5) K/uL Lymph # (Auto) 2.24 (1.2-3.4) K/uL Cole # (Auto) 1.28 H (0.24-0.82) K/uL Eos # (Auto) 0.00 (0-0.50) K/uL Baso # (Auto) 0.03 (0-0.2) K/uL Immature Gran # (Auto) 0.10 H (0.00-0.02) K/uL Sodium 140 (136-145) mmol/L Potassium 3.8 (3.5-5.1) mmol/L Chloride 100 (98-107) mmol/L Carbon Dioxide 27 (21-32) mmol/L Anion Gap 13 H (3-11) BUN 30 H (6-23) mg/dl Creatinine 0.88 (0.6-1.2) mg/dl Est Cr Clr Drug Dosing 28.6 ml/min Est GFR ( Amer) 67.5 ml/min Est GFR (Non-Af Amer) 58.3 ml/min BUN/Creatinine Ratio 34.1 H (10-20) Glucose 197 H (70-99(Fasting)) mg/dl Lactate (0.4-2.0) mmol/L Calcium 9.0 (8.5-10.1) mg/dl Magnesium 1.7 (1.7-2.4) mg/dl Total Bilirubin 0.6 (0.2-1.0) mg/dl AST 39 (13-39) U/L ALT 34 (7-52) U/L Alkaline Phosphatase 116 H (34-104) U/L Troponin I High Sens 126.5 H* (0-14) pg/ml Total Protein 9.1 H (6.0-8.3) gm/dl Albumin 3.4 (3.4-5.0) gm/dl Globulin 5.7 H (2.5-4.0) gm/dl Albumin/Globulin Ratio 0.6 L (0.9-2) TSH 5.779 H (0.300-4.500) uIu/ml Free T4 0.95 (0.61-1.60) ng/dl Urine Color Urine Appearance (Clear) Urine pH (4.5-7.5) Ur Specific [place] (1.000-1.030) Urine Protein (Negative) Urine Glucose (UA) (Negative) Urine Ketones (Negative) Urine Blood (Negative) Urine Nitrite (Negative) Urine Bilirubin (Negative) Urine Urobilinogen (Negative) Ur Leukocyte Esterase (Negative) Urine WBC (Auto) (0-5) /hpf Urine RBC (Auto) (0-4) /hpf U Hyaline Cast (Auto) (0-5) /lpf U Epithel Cells (Auto) (0-5) /lpf Urine Bacteria (Auto) (Negative) Ur Renal Epithelial Cell Urine Crystals Calcium Oxalate Crystal (None Prsent) Urine Mucus (None Prsent) SARS-CoV-2 (PCR) (Negative) Influenza Type A (PCR) (Neg) Influenza Type B (PCR) (Neg) RSV (RT-PCR) (Neg) 12/25/21 12/25/21 12/25/21 Range/Units 19:25 20:18 21:40 WBC (4.8-10.8) K/ul RBC (3.93-5.22) M/uL Hgb (12.0-16.0) g/dl Hct (34.1-44.9) % MCV (80.0-100.0) fL MCH (25.0-34.0) pg MCHC (32.0-36.0) g/dL RDW Std Deviation (36.4-46.3) fL RDW Coeff of Mj (11.5-14.5) % Plt Count (130-400) K/uL MPV (9.4-12.3) fL Immature Gran % (Auto) % Neut % (Auto) % Lymph % (Auto) % Cole % (Auto) % Eos % (Auto) % Baso % (Auto) % Neut # (Auto) (1.4-6.5) K/uL Lymph # (Auto) (1.2-3.4) K/uL Cole # (Auto) (0.24-0.82) K/uL Eos # (Auto) (0-0.50) K/uL Baso # (Auto) (0-0.2) K/uL Immature Gran # (Auto) (0.00-0.02) K/uL Sodium (136-145) mmol/L Potassium (3.5-5.1) mmol/L Chloride (98-107) mmol/L Carbon Dioxide (21-32) mmol/L Anion Gap (3-11) BUN (6-23) mg/dl Creatinine (0.6-1.2) mg/dl Est Cr Clr Drug Dosing ml/min Est GFR ( Amer) ml/min Est GFR (Non-Af Amer) ml/min BUN/Creatinine Ratio (10-20) Glucose (70-99(Fasting)) mg/dl Lactate 1.7 (0.4-2.0) mmol/L Calcium (8.5-10.1) mg/dl Magnesium (1.7-2.4) mg/dl Total Bilirubin (0.2-1.0) mg/dl AST (13-39) U/L ALT (7-52) U/L Alkaline Phosphatase (34-104) U/L Troponin I High Sens (0-14) pg/ml Total Protein (6.0-8.3) gm/dl Albumin (3.4-5.0) gm/dl Globulin (2.5-4.0) gm/dl Albumin/Globulin Ratio (0.9-2) TSH (0.300-4.500) uIu/ml Free T4 (0.61-1.60) ng/dl Urine Color Dark Yellow Urine Appearance Turbid A (Clear) Urine pH 5.5 (4.5-7.5) Ur Specific [place] 1.021 (1.000-1.030) Urine Protein 3+ H (Negative) Urine Glucose (UA) Negative (Negative) Urine Ketones Negative (Negative) Urine Blood 3+ H (Negative) Urine Nitrite Negative (Negative) Urine Bilirubin 1+ H (Negative) Urine Urobilinogen Negative (Negative) Ur Leukocyte Esterase Trace H (Negative) Urine WBC (Auto) 10-30 H (0-5) /hpf Urine RBC (Auto) 10-30 H (0-4) /hpf U Hyaline Cast (Auto) 5-10 H (0-5) /lpf U Epithel Cells (Auto) >30 H (0-5) /lpf Urine Bacteria (Auto) 1+ H (Negative) Ur Renal Epithelial Cell Not Reportable Urine Crystals Not Reportable Calcium Oxalate Crystal Present A (None Prsent) Urine Mucus Present A (None Prsent) SARS-CoV-2 (PCR) NEGATIVE (Negative) Influenza Type A (PCR) Negative (Neg) Influenza Type B (PCR) Negative (Neg) RSV (RT-PCR) Negative (Neg) Administered Medications Discontinued Medications Albuterol (Albut/Ipratrop 3mg/0.5mg Neb 3 Ml Vial) 3 ml NEB NOW STA; Protocol Stop: 12/25/21 19:04 Last Admin: 12/25/21 20:03 Dose: 3 ml Documented By: ARLET Sodium Chloride (Nss) 500 mls @ 999 mls/hr IV .Q31M JOSE Stop: 12/25/21 19:45 Last Infusion: 12/25/21 20:45 Dose: 0 mls/hr Documented By: Admin: 12/25/21 20:03 Dose: 999 mls/hr Documented By: ARLET Cefepime HCl (Maxipime) 2,000 mg in 20 mls @ 5 mls/min IV NOW STA; Protocol Stop: 12/25/21 19:19 Last Admin: 12/25/21 20:03 Dose: 5 mls/min Documented By: ARLET Sodium Chloride (Nss 1000ml) 500 mls @ 999 mls/hr IV .Q31M ONE Stop: 12/25/21 22:19 Last Admin: 12/25/21 22:11 Dose: 999 mls/hr Documented By: ARLET Imaging Data Radiologist's Impression: Cervical Spine CT 12/25/21 19:03 CT cervical spine wo con CLINICAL HISTORY: fall, pain TECHNIQUE: Multidetector row helical CT of the cervical spine was performed without administration of intravenous contrast. Coronal and sagittal reformations were obtained. Automated dose lowering techniques and/or adjustment according to patient size were utilized for this exam. Comparison: None available at the time of this dictation. FINDINGS: No acute fractures or subluxations are identified. Degenerative changes are seen in the visualized spine. The alignment is normal. Biapical scarring is seen in the lungs. IMPRESSION: Degenerative changes without evidence of acute bony injury. ACT 112: Negative or not required by law. Electronically signed by: Fernando Hart M.D. 12/25/2021 9:05 PM Chest X-Ray 12/25/21 19:03 XR chest 1V portable CLINICAL HISTORY: weakness TECHNIQUE: Single frontal radiograph of the chest was obtained. Comparison: Comparison is made to chest radiograph 06/03/2017 FINDINGS: No lines and tubes are seen. Calcified aortic knob is seen. Reticular interstitial opacities are seen. No evidence of pleural effusion or pneumothorax. IMPRESSION: No acute chest disease. ACT 112: Negative or not required by law. Electronically signed by: Fernando Hart M.D. 12/25/2021 7:[address] 12/25/21 19:03 CT head/brain wo con CLINICAL HISTORY: fall, confusion Technique: Contiguous axial CT images of the head were acquired from the base of the skull to the vertex without intravenous contrast administration. Images were viewed in brain, subdural and bone windows. Automated dose lowering techniques and/or adjustment according to patient size were utilized for this exam. Comparison: Comparison is made to CT head 04/16/2018 Findings: Areas of decreased attenuation are present in the periventricular and subcortical white matter bilaterally consistent with small vessel ischemic disease. Generalized cerebral atrophy with commensurate enlargement of the ventricles, sulci, and cisterns is also present. There is no acute intracranial hemorrhage or evidence of acute territorial infarction. No shift of the midline structures, mass effect, or extra-axial abnormalities are shown. Atherosclerotic calcifications are present in the intracranial segments of the internal carotid arteries. Imaged portions of the paranasal sinuses and mastoid air cells are clear. The orbits appear normal. There are no acute fractures of the calvaria or scalp swelling. Impression: No acute intracranial hemorrhage, no evidence of acute territorial infarction or other acute intracranial disease process. ACT 112: Negative or not required by law. Electronically signed by: Fernando Hart M.D. 12/25/2021 9:02 PM Pelvis X-Ray 12/25/21 19:03 XR pelvis 1-2V routine CLINICAL HISTORY: fall TECHNIQUE: A single frontal view of the pelvis was obtained. Comparison: None available at the time of this dictation. FINDINGS: There is no evidence of an acute fracture. Degenerative changes are seen in the hip joints and lumbar spine. Vascular calcifications are noted. IMPRESSION: No evidence of acute osseous injury. ACT 112: Negative or not required by law. Electronically signed by: Fernando Hart M.D. 12/25/2021 7:54 PM Discharge Plan Visit Data Chief Complaint: Syncope ED Provider: Blake Yousif Discharge Problem: Hypoxia, Near syncope, Weakness, Leukocytosis, Acute UTI, Elevated troponin Patient Disposition: Admitted As Inpatient Condition: Fair Forms Stand Alone Forms: My [facility] Prescriptions Prescriptions: No Action simvastatin 10 mg tablet 10 mg PO DAILY Qty: 90 3RF potassium chloride [Klor-Con M10] 10 mEq tablet,ER particles/crystals 10 meq PO DAILY Qty: 90 3RF pantoprazole 20 mg tablet,delayed release (DR/EC) 20 mg PO DAILY Qty: 90 3RF metoprolol succinate 25 mg tablet extended release 24 hr 12.5 mg PO DAILY Qty: 30 11RF lorazepam 0.5 mg tablet 0.5 mg PO BID PRN (Reason: Anxiety) Qty: 90 2RF sertraline 25 mg tablet See Rx Instructions .ROUTE .COMPLEX Qty: 90 3RF Dose Instruction: take 1 tablet by mouth once daily Rx Instructions: take 1 tablet by mouth once daily donepezil 10 mg tablet 10 mg PO HS Qty: 90 3RF aspirin [Aspir-81] 81 mg tablet,delayed release (DR/EC) 81 mg PO DAILY Qty: 30 2RF Referrals Referrals: Bo Perez MD [Primary Care Provider] -
[2021-12-25 19:14] LABS: Basophils # (auto) 0.03 K/uL (0-0.2); Basophils % (auto) 0.2 %; Hematocrit (blood only) 36.4 % (34.1-44.9); Hemoglobin 11.4 g/dl (12.0-16.0); Immature Granulocytes % (auto) 0.7 %; Lymphocytes # (auto) 2.24 K/uL (1.2-3.4); Lymphocytes % (auto) 14.9 %; Mean Corpuscular Hemoglobin 28.6 pg (25.0-34.0); Mean Corpuscular Hgb Conc 31.3 g/dL (32.0-36.0); Mean Corpuscular Volume 91.5 fL (80.0-100.0); Monocytes # (auto) 1.28 K/uL (0.24-0.82); Monocytes % (auto) 8.5 %; Neutrophils # (auto) 11.36 K/uL (1.4-6.5); Neutrophils % (auto) 75.7 %; Platelet Count 249 K/uL (130-400); RDW Coefficient of Variation 13.8 % (11.5-14.5); RDW Standard Deviation 46.5 fL (36.4-46.3); Red Blood Count 3.98 M/uL (3.93-5.22); White Blood Count 15.01 K/ul (4.8-10.8)
[2021-12-25] MEDS ORDERED: SODIUM CHLORIDE 0.9% 500 ML IV SCH (19:15)
[2021-12-25] MEDS ORDERED: CEFEPIME 2,000 MG/20 ML VIAL IV STA (19:16)
[2021-12-25 19:42] LABS: Albumin Globulin Ratio 0.6 (0.9-2); Albumin Level 3.4 gm/dl (3.4-5.0); BUN Creatinine Ratio 34.1 (10-20); Bilirubin,Total 0.6 mg/dl (0.2-1.0); Creatinine Clr Calc Pharmacy 28.6 ml/min; Est GFR (African American) 67.5 ml/min; Est GFR (Non-African American) 58.3 ml/min; Globulin 5.7 gm/dl (2.5-4.0); Magnesium 1.7 mg/dl (1.7-2.4); Potassium 3.8 mmol/L (3.5-5.1); Total Protein 9.1 gm/dl (6.0-8.3)
[2021-12-25 19:47] LABS: Troponin I High Sensitivity 126.5 pg/ml (0-14)
--- NOTE | 2021-12-25 19:56 | XRay Report ---
XR pelvis 1-2V routine CLINICAL HISTORY: fall TECHNIQUE: A single frontal view of the pelvis was obtained. Comparison: None available at the time of this dictation. FINDINGS: There is no evidence of an acute fracture. Degenerative changes are seen in the hip joints and lumbar spine. Vascular calcifications are noted. IMPRESSION: No evidence of acute osseous injury. ACT 112: Negative or not required by law. Electronically signed by: Fernando Hart M.D. 12/25/2021 7:54 PM
--- NOTE | 2021-12-25 19:57 | XRay Report ---
XR chest 1V portable CLINICAL HISTORY: weakness TECHNIQUE: Single frontal radiograph of the chest was obtained. Comparison: Comparison is made to chest radiograph 06/03/2017 FINDINGS: No lines and tubes are seen. Calcified aortic knob is seen. Reticular interstitial opacities are seen . No evidence of pleural effusion or pneumothorax. IMPRESSION: No acute chest disease. ACT 112: Negative or not required by law. Electronically signed by: Fernando Hart M.D. 12/25/2021 7:55 PM
[2021-12-25 20:06] LABS: Thyroid Stimulating Hormone 5.779 uIu/ml (0.300-4.500)
[2021-12-25 20:38] LABS: Influenza A virus by PCR Negative (Neg); Influenza B virus by PCR Negative (Neg); RSV by PCR Negative (Neg); SARS CoV2 RNA(COVID-19) InHosp NEGATIVE (Negative)
[2021-12-25 20:39] LABS: T4 Free Thyroxine 0.95 ng/dl (0.61-1.60)
--- NOTE | 2021-12-25 21:03 | CT Scan Report ---
CT head/brain wo con CLINICAL HISTORY: fall, confusion Technique: Contiguous axial CT images of the head were acquired from the base of the skull to the caden zulema without intravenous contrast administration. Images were viewed in brain, subdural and bone [facility]. Automated dose lowering techniques and/or adjustment according to patient size were utilized for this exam. Comparison: Comparison is made to CT head 04/16/2018 Findings: Areas of decreased attenuation are present in the periventricular and subcortical white matter bilate rally consistent with small vessel ischemic disease. Generalized cerebral atrophy with commensurate e nlargement of the ventricles, sulci, and cisterns is also present. There is no acute intracranial hem orrhage or evidence of acute territorial infarction. No shift of the midline structures, mass effect, or extra-axial abnormalities are shown. Atherosclerotic calcifications are present in the intracran ial segments of the internal carotid arteries. Imaged portions of the paranasal sinuses and mastoid air cells are clear. The orbits appear normal. There are no acute fractures of the calvaria or scalp swelling. Impression: No acute intracranial hemorrhage, no evidence of acute territorial infarction or other acute intracra nial disease process. ACT 112: Negative or not required by law. Electronically signed by: Fernando Hart M.D. 12/25/2021 9:02 PM
--- NOTE | 2021-12-25 21:07 | CT Scan Report ---
CT cervical spine wo con CLINICAL HISTORY: fall, pain TECHNIQUE: Multidetector row helical CT of the cervical spine was performed without administration of intravenous contrast. Coronal and sagittal reformations were obtained. Automated dose lowering techn iques and/or adjustment according to patient size were utilized for this exam. Comparison: None available at the time of this dictation. FINDINGS: No acute fractures or subluxations are identified. Degenerative changes are seen in the visualized sp ine. The alignment is normal. Biapical scarring is seen in the lungs. IMPRESSION: Degenerative changes without evidence of acute bony injury. ACT 112: Negative or not required by law. Electronically signed by: Fernando Hart M.D. 12/25/2021 9:05 PM
[2021-12-25] MEDS ORDERED: SODIUM CHLORIDE 0.9% 1000ML 500 ML IV ONE (21:49)
[2021-12-25 22:08] LABS: Appearance Urine Turbid (Clear); Blood Urine 3+ (Negative); Color Urine Dark Yellow; Epithelial Cell Urine Auto >30 /lpf (0-5); Glucose Urine UA Negative (Negative); Ketones Urine Negative (Negative); Leukocyte Esterase Urine Trace (Negative); Nitrite Urine Negative (Negative); Protein Urine 3+ (Negative); Specific Gravity Urine 1.021 (1.000-1.030); Urobilinogen Urine Negative (Negative); pH Urine 5.5 (4.5-7.5)
[2021-12-25 22:14] LABS: Bilirubin Urine 1+ (Negative)
[2021-12-25 22:39] LABS: Mucus Urine Present (None Prsent)
[2021-12-25 22:42] LABS: Calcium Oxalate Crystals Urine Present (None Prsent)
[2021-12-25 22:45] LABS: Bacteria Urine Automated 1+ (Negative)
--- NOTE | 2021-12-25 22:45 | History & Physical Report ---
Date of Service December 25, 2021 Assessment & Plan (1) Sepsis: Plan: SIRS 3/4, qSOFA 2/3. CRP 18.79, ESR 128 and procalcitonin 1.78. Lactate 1.7. May be due to UTI as UA is dirty. CTA chest showing PE of left pulmonary artery bifurcation, as well as patchy densities in bilateral lower lobes. PE and ?atypical pneumonia may be contributing to sepsis as well. - MRSA nares negative - VBG: pH 7.34, pCO2 53 - urine legionella ordered - pending - s/p Cefepime in ED - continue with Cefepime 1g IV Q12H - add Azithromycin 500mg IV Q24H for atypical coverage - blood and urine cx collected before abx initiated - trend and adjust abx as necessary - s/p NSS 1L bolus - continue with LR @80cc/hr - supplemental O2 as necessary to maintain SpO2 88-92% - trend CBC in AM (2) Pulmonary embolism: Plan: Findings per CTA chest, likely contributing to sepsis as stated above. Patient is relatively sedentary and has current infection, likely provoking this PE. - start Heparin bolus + gtt - ordered TTE - supplemental O2 as stated above (3) Elevated troponin: Plan: hsTroponin 126.5 --> 197.7. No chest pain and EKG without ST/T abnormalities. Suspect demand ischemia in setting of tachycardia/sepsis/PE. - trend in AM (4) COPD (chronic obstructive pulmonary disease): Plan: Chronic, no home O2 or regular inhalers. (5) Bronchiectasis: Plan: Chronic. (6) Permanent atrial fibrillation: Plan: Chronic, however not in a-fib here in the hospital. - continue home Metoprolol (7) Hypertension: Plan: continue home Metoprolol as stated above (8) Dyslipidemia: Plan: Continue home Simvastatin and baby Aspirin (9) Dementia: Plan: continue home Donepezil (10) Anxiety: Plan: continue home Sertraline (11) Laryngopharyngeal reflux: Plan: - continue home Protonix - maintain NPO status for now, pending [facility] consult (given concern for chronic aspiration) Plan FEN/GI: NPO pending [facility] eval, LR @80cc/hr DVT Prophylaxis: Heparin gtt Code Status: DNR/DNI - discussed with patient's daughter Disposition: PCU History of Present Illness Chief Complaint: syncope Primary Care Provider: Bo Perez MD Evagnelina Cifuentes is an 89yo female with PMHx significant for COPD (not on home O2), bronchiectasis, permanent a-fib (on BB, no AC), HTN, dyslipidemia, lumbar spinal stenosis, osteoporosis, severe dementia and anxiety, who presented to [facility] ED on 12/25 for syncope. Per EMS, patient's family witnessed her having a syncopal event and resultant fall - she was reportedly vaughan in color at the time. She has also been more confused and lethargic today - worse than baseline. Per EMS patient was hypoxic when they arrived and required supplemental O2. On discussion with the patient's daughter, she reports that the patient has a chronic cough that worsens when she eats. She thinks she chronically aspirates but denies previous aspiration pneumonia. Patient usually urinates without issues and has not been complaining of pain recently. She has been eating/drinking less and sweating more over last 1-2 days, and was profoundly weak yesterday. In the ED the patient was hypoxic to 86% and improved to SpO2 92-95% on 5L/min NC. HR in 110s (sinus tachycardia per EKG and telemetry monitoring). Also tachypneic in 30s. Borderline hypertensive and afebrile. Labs significant for WBC 15.01 (neutrophilic predominance and L shift). Lactate 1.7. Hgb 11.4 (at baseline). hsTroponin 126.5 (no ST/T abnormalities on EKG and no chest pain). UA with turbid urine 3+ blood and trace LE. COVID- 19/influenza/RSV negative. CXR with progressive reticular interstitial opacities in comparison to 2018 CXR but no acute cardiopulmonary process. XR pelvis without fractures. CT head unremarkable. CT c-spine with chronic degenerative changes but no acute fracture/abnormality. Patient was given NSS 1L bolus, Albuterol nebs, and Cefepime. Blood/urine cx drawn before initiation of abx. Allergies Allergy/AdvReac Type Severity Reaction Status Date / Time erythromycin base AdvReac Intermediate NAUSEA Verified 12/26/21 01:37 Home Medications Medication Instructions Recorded Confirmed Type simvastatin 10 mg tablet 10 mg PO DAILY #90 tabs 03/18/21 12/26/21 Rx potassium chloride 10 mEq 10 meq PO DAILY #90 tabs 04/22/21 12/26/21 Rx tablet,extended release(part/cryst) (Klor-Con M) pantoprazole 20 mg tablet,delayed 20 mg PO DAILY #90 tabs 04/30/21 12/26/21 Rx release metoprolol succinate 25 mg 12.5 mg PO DAILY #30 tabs 08/04/21 12/26/21 Rx tablet,extended release 24 hr lorazepam 0.5 mg tablet 0.5 mg PO BID PRN Anxiety #90 tabs 09/15/21 12/26/21 Rx sertraline 25 mg tablet See Rx Instructions .Route 10/14/21 12/26/21 Rx .COMPLEX #90 tabs donepezil 10 mg tablet 10 mg PO HS #90 tabs 11/18/21 12/26/21 Rx cetirizine 10 mg tablet (Zyrtec) 10 mg PO DAILY 12/26/21 12/26/21 History Past Med/Surg History Medical History (Updated 12/26/21 @ 02:34 by Rick Boswell MD) COPD (chronic obstructive pulmonary disease) Multiple fractures of ribs of right side Nephrolithiasis Osteoarthritis Osteoporosis Scoliosis Surgical History H/O colonoscopy (~2009) Family History Other No pertinent family history Social History Smoking Status: Former smoker Number of Years Since Quit: 36; Preferred Language: Turkish Current Living Situation: Family current occupational status: retired Feels Safe at Home: Yes Review of Systems Review of Systems: All systems reviewed & are unremarkable except as noted in HPI & below Physical Exam Physical Exam: General: A&O to self only (dementia). NAD. Cooperative. HEENT: Atraumatic, normocephalic. Pulm: Decreased breath sounds bilaterally. -wheezes, -rales, -rhonchi. Symmetrical chest rise. No increase work of breathing. No respiratory distress. Cardiac: RRR, -mrg. Radial pulses intact and symmetrical. No LE edema. Abdominal: soft, non-tender, non-distended, BS x 4 Results & Data Results & Data ([facility]) Vital Signs (Past 12 Hours) Vital Signs Temp Pulse Pulse Resp BP BP Pulse Ox 12/25/21 21:40 100 H 37 H 93 12/25/21 21:30 101 H 32 H 93 12/25/21 21:30 114/57 L 12/25/21 21:20 99 H 32 H 94 12/25/21 21:10 107 H 16 92 12/25/21 21:03 130/87 12/25/21 21:03 107 H 21 87 L 12/25/21 20:40 34 H 97 12/25/21 20:30 24 87 L 12/25/21 20:30 159/76 H 12/25/21 20:20 110 H 24 97 12/25/21 20:10 108 H 27 H 99 12/25/21 20:00 107 H 32 H 99 12/25/21 20:00 115/65 12/25/21 19:50 112 H 14 98 12/25/21 19:40 112 H 17 97 12/25/21 19:30 110 H 37 H 134/73 97 12/25/21 19:20 114 H 28 H 97 12/25/21 19:10 112 H 31 H 98 12/25/21 19:04 118 H 30 H 149/85 H 96 12/25/21 19:02 87 L 12/25/21 19:03 36.8 C 111 H 22 149/85 H 94 12/25/21 19:08 96 12/25/21 19:07 36.8 C 113 H 28 H 149/85 H 86 L O2 Del Method O2 Flow Rate 12/25/21 21:40 12/25/21 21:30 12/25/21 21:30 12/25/21 21:20 12/25/21 21:10 12/25/21 21:03 12/25/21 21:03 12/25/21 20:40 12/25/21 20:30 12/25/21 20:30 12/25/21 20:20 12/25/21 20:10 12/25/21 20:00 12/25/21 20:00 12/25/21 19:50 12/25/21 19:40 12/25/21 19:30 12/25/21 19:20 12/25/21 19:10 12/25/21 19:04 12/25/21 19:02 12/25/21 19:03 Nasal Cannula 2 12/25/21 19:08 Nasal Cannula 2 12/25/21 19:07 Room Air Laboratory Results Laboratory Results WBC 15.01 K/ul (4.8-10.8) H 12/25/21 18:30 RBC 3.98 M/uL (3.93-5.22) 12/25/21 18:30 Hgb 11.4 g/dl (12.0-16.0) L 12/25/21 18:30 Hct 36.4 % (34.1-44.9) 12/25/21 18:30 MCV 91.5 fL (80.0-100.0) 12/25/21 18:30 MCH 28.6 pg (25.0-34.0) 12/25/21 18:30 MCHC 31.3 g/dL (32.0-36.0) L 12/25/21 18:30 RDW Std Deviation 46.5 fL (36.4-46.3) H 12/25/21 18:30 RDW Coeff of Mj 13.8 % (11.5-14.5) 12/25/21 18:30 Plt Count 249 K/uL (130-400) 12/25/21 18:30 MPV 11.0 fL (9.4-12.3) 12/25/21 18:30 Immature Gran % (Auto) 0.7 % 12/25/21 18:30 Neut % (Auto) 75.7 % 12/25/21 18:30 Lymph % (Auto) 14.9 % 12/25/21 18:30 [place] % (Auto) 8.5 % 12/25/21 18:30 Eos % (Auto) 0.0 % 12/25/21 18:30 Baso % (Auto) 0.2 % 12/25/21 18:30 Neut # (Auto) 11.36 K/uL (1.4-6.5) H 12/25/21 18:30 Lymph # (Auto) 2.24 K/uL (1.2-3.4) 12/25/21 18:30 [place] # (Auto) 1.28 K/uL (0.24-0.82) H 12/25/21 18:30 Eos # (Auto) 0.00 K/uL (0-0.50) 12/25/21 18:30 Baso # (Auto) 0.03 K/uL (0-0.2) 12/25/21 18:30 Immature Gran # (Auto) 0.10 K/uL (0.00-0.02) H 12/25/21 18:30 ESR 128 mm/hr (0-30) H 12/25/21 19:03 APTT 28.3 Seconds (21.0-31.0) 12/26/21 02:45 PTT Ratio 1.0 12/26/21 02:45 VBG pH 7.34 (7.36-7.41) L 12/25/21 23:49 VBG pCO2 53 mmHg (38-50) H 12/25/21 23:49 VBG pO2 29 mmHg 12/25/21 23:49 VBG HCO3 29 mmol/L 12/25/21 23:49 VBG O2 Saturation < 60.0 % 12/25/21 23:49 VBG Base Excess 1.8 mEq/L 12/25/21 23:49 Sodium 140 mmol/L (136-145) 12/25/21 18:30 Potassium 3.8 mmol/L (3.5-5.1) 12/25/21 18:30 Chloride 100 mmol/L (98-107) 12/25/21 18:30 Carbon Dioxide 27 mmol/L (21-32) 12/25/21 18:30 Anion Gap 13 (3-11) H 12/25/21 18:30 BUN 30 mg/dl (6-23) H 12/25/21 18:30 Creatinine 0.88 mg/dl (0.6-1.2) 12/25/21 18:30 Est Cr Clr Drug Dosing 28.6 ml/min 12/25/21 18:30 Est GFR ( Amer) 67.5 ml/min 12/25/21 18:30 Est GFR (Non-Af Amer) 58.3 ml/min 12/25/21 18:30 BUN/Creatinine Ratio 34.1 (10-20) H 12/25/21 18:30 Glucose 197 mg/dl (70-99(Fasting)) H 12/25/21 18:30 Lactate 1.7 mmol/L (0.4-2.0) 12/25/21 20:18 Calcium 9.0 mg/dl (8.5-10.1) 12/25/21 18:30 Magnesium 1.7 mg/dl (1.7-2.4) 12/25/21 18:30 Total Bilirubin 0.6 mg/dl (0.2-1.0) 12/25/21 18:30 AST 39 U/L (13-39) 12/25/21 18:30 ALT 34 U/L (7-52) 12/25/21 18:30 Alkaline Phosphatase 116 U/L (34-104) H 12/25/21 18:30 Troponin I High Sens 197.7 pg/ml (0-14) H* D 12/25/21 23:49 C-Reactive Protein 18.79 mg/dl (0-0.5) H 12/25/21 23:49 Total Protein 9.1 gm/dl (6.0-8.3) H 12/25/21 18:30 Albumin 3.4 gm/dl (3.4-5.0) 12/25/21 18:30 Globulin 5.7 gm/dl (2.5-4.0) H 12/25/21 18:30 Albumin/Globulin Ratio 0.6 (0.9-2) L 12/25/21 18:30 Procalcitonin 1.78 ng/ml (0-0.5) H 12/25/21 18:30 TSH 5.779 uIu/ml (0.300-4.500) H 12/25/21 18:30 Free T4 0.95 ng/dl (0.61-1.60) 12/25/21 18:30 Urine Color Dark Yellow 12/25/21 21:40 Urine Appearance Turbid (Clear) A 12/25/21 21:40 Urine pH 5.5 (4.5-7.5) 12/25/21 21:40 Ur Specific [place] 1.021 (1.000-1.030) 12/25/21 21:40 Urine Protein 3+ (Negative) H 12/25/21 21:40 Urine Glucose (UA) Negative (Negative) 12/25/21 21:40 Urine Ketones Negative (Negative) 12/25/21 21:40 Urine Blood 3+ (Negative) H 12/25/21 21:40 Urine Nitrite Negative (Negative) 12/25/21 21:40 Urine Bilirubin 1+ (Negative) H 12/25/21 21:40 Urine Urobilinogen Negative (Negative) 12/25/21 21:40 Ur Leukocyte Esterase Trace (Negative) H 12/25/21 21:40 Urine WBC (Auto) 10-30 /hpf (0-5) H 12/25/21 21:40 Urine RBC (Auto) 10-30 /hpf (0-4) H 12/25/21 21:40 U Hyaline Cast (Auto) 5-10 /lpf (0-5) H 12/25/21 21:40 U Epithel Cells (Auto) >30 /lpf (0-5) H 12/25/21 21:40 Urine Bacteria (Auto) 1+ (Negative) H 12/25/21 21:40 Ur Renal Epithelial Cell Not Reportable 12/25/21 21:40 Urine Crystals Not Reportable 12/25/21 21:40 Calcium Oxalate Crystal Present (None Prsent) A 12/25/21 21:40 Urine Mucus Present (None Prsent) A 12/25/21 21:40 Nasal Screen MRSA (PCR) Negative (Negative) 12/25/21 22:55 SARS-CoV-2 (PCR) NEGATIVE (Negative) 12/25/21 19:25 Influenza Type A (PCR) Negative (Neg) 12/25/21 19:25 Influenza Type B (PCR) Negative (Neg) 12/25/21 19:25 RSV (RT-PCR) Negative (Neg) 12/25/21 19:[address] 12/25/21 19:03 CT cervical spine wo con CLINICAL HISTORY: fall, pain TECHNIQUE: Multidetector row helical CT of the cervical spine was performed without administration of intravenous contrast. Coronal and sagittal reformations were obtained. Automated dose lowering techniques and/or adjustment according to patient size were utilized for this exam. Comparison: None available at the time of this dictation. FINDINGS: No acute fractures or subluxations are identified. Degenerative changes are seen in the visualized spine. The alignment is normal. Biapical scarring is seen in the lungs. IMPRESSION: Degenerative changes without evidence of acute bony injury. ACT 112: Negative or not required by law. Electronically signed by: Fernando Hart M.D. 12/25/2021 9:05 PM Chest X-Ray 12/25/21 19:03 XR chest 1V portable CLINICAL HISTORY: weakness TECHNIQUE: Single frontal radiograph of the chest was obtained. Comparison: Comparison is made to chest radiograph 06/03/2017 FINDINGS: No lines and tubes are seen. Calcified aortic knob is seen. Reticular interstitial opacities are seen. No evidence of pleural effusion or pneumothorax. IMPRESSION: No acute chest disease. ACT 112: Negative or not required by law. Electronically signed by: Fernando Hart M.D. 12/25/2021 7:[address] 12/25/21 19:03 CT head/brain wo con CLINICAL HISTORY: fall, confusion Technique: Contiguous axial CT images of the head were acquired from the base of the skull to the vertex without intravenous contrast administration. Images were viewed in brain, subdural and bone windows. Automated dose lowering techniques and/or adjustment according to patient size were utilized for this exam. Comparison: Comparison is made to CT head 04/16/2018 Findings: Areas of decreased attenuation are present in the periventricular and subcortical white matter bilaterally consistent with small vessel ischemic disease. Generalized cerebral atrophy with commensurate enlargement of the ventricles, sulci, and cisterns is also present. There is no acute intracranial hemorrhage or evidence of acute territorial infarction. No shift of the midline structures, mass effect, or extra-axial abnormalities are shown. Atherosclerotic calcifications are present in the intracranial segments of the internal carotid arteries. Imaged portions of the paranasal sinuses and mastoid air cells are clear. The orbits appear normal. There are no acute fractures of the calvaria or scalp swelling. Impression: No acute intracranial hemorrhage, no evidence of acute territorial infarction or other acute intracranial disease process. ACT 112: Negative or not required by law. Electronically signed by: Fernando Hart M.D. 12/25/2021 9:02 PM Pelvis X-Ray 12/25/21 19:03 XR pelvis 1-2V routine CLINICAL HISTORY: fall TECHNIQUE: A single frontal view of the pelvis was obtained. Comparison: None available at the time of this dictation. FINDINGS: There is no evidence of an acute fracture. Degenerative changes are seen in the hip joints and lumbar spine. Vascular calcifications are noted. IMPRESSION: No evidence of acute osseous injury. ACT 112: Negative or not required by law. Electronically signed by: Fernando Hart M.D. 12/25/2021 7:54 PM Supervising Physician Co-Signing Physician Notes Patient seen and examined, chart reviewed, case discussed with Dr. Boswell and I agree with the assessment and plan as above. In brief, patient is an 89-year-old female with history of COPD, bronchiectasis, atrial fibrillation, hypertension, hyperlipidemia and severe dementia presenting with a syncopal event from home. Patient's family provides majority of history as patient is unable to recollect the events prior to arrival. Patient had an episode witnessed at home during which she became vaughan in color and became more confused and lethargic. Hypoxic on arrival requiring supplemental oxygen as well as tachypnea. Exam: Patient is afebrile, mildly tachycardic, tachypneic saturating 93% on 4 L nasal cannula. Dementia, unable to answer questions or participate with much of exam + S1, S2, Regular Diminished breath sounds in bilateral bases, No rales/rhonchi/wheezes Abdomen soft, nondistended, nontender Labs and images reviewed. Significant for WBC = 15, ESR = 128, BUN = 30 Assessment/plan 89-year-old female with multiple medical comorbidities presenting from home with possible syncopal event. Patient hypoxic and tachypneic upon arrival. Laboratory work-up suggestive of sepsis, possible pulmonary versus urinary source. Patient also found with PE Follow cultures. Continue broad-spectrum antibiotics with cefepime and azithromycin. Check MRSA Heparin drip for PE management Trend troponin Remainder as above Resident Activity Tracking Resident Involvement: Resident Care Provided Care Provided: Adult [facility] Medicine
[2021-12-25] MEDS ORDERED: OPTIRAY 320 125ml IV ONE (23:48)
[2021-12-25 23:57] LABS: Base Excess VBG 1.8 mEq/L; HCO3 VBG 29 mmol/L; Oxygen Saturation VBG < 60.0 %; PCO2 VBG 53 mmHg (38-50); PO2 VBG 29 mmHg; pH VBG 7.34 (7.36-7.41)
[2021-12-26 00:34] LABS: Troponin I High Sensitivity 197.7 pg/ml (0-14)
[2021-12-26 00:37] LABS: C Reactive Protein 18.79 mg/dl (0-0.5)
[2021-12-26] MEDS ORDERED: Heparin IV Adult Wt-Based Standard WITH Bolus Protocol IV SCH (00:54)
[2021-12-26] MEDS ORDERED: HEPARIN SOD (PORCINE) 1000 UNIT/ML IV ONE (00:54)
[2021-12-26] MEDS ORDERED: CEFEPIME 2,000 MG in SYRINGE 0 ML IV SCH (00:55)
[2021-12-26] MEDS ORDERED: ENOXAPARIN INJ 40 MG/0.4 ML SYR SQ SCH (00:55)
[2021-12-26] MEDS: LACTATED RINGER'S 1,000 ML IV SCH ×2 (02:16→15:33)
[2021-12-26 03:08] LABS: Partial Thromboplastin Time 28.3 Seconds (21.0-31.0)
[2021-12-26] MEDS: HEPARIN SODIUM/DEXTROSE 25,000 UNITS/500 ML BAG IV SCH (03:11)
--- NOTE | 2021-12-26 03:50 | Billing Data ---
Date of Service December 25, 2021 Coding Level of Care Code 37167 Initial Inpt Care Lvl 3
[2021-12-26] MEDS: AZITHROMYCIN 500 MG in DEXTROSE 5% 250 ML IV SCH (04:10)
[2021-12-26 06:14] LABS: Basophils # (auto) 0.03 K/uL (0-0.2); Basophils % (auto) 0.2 %; Hematocrit (blood only) 32.1 % (34.1-44.9); Hemoglobin 10.3 g/dl (12.0-16.0); Immature Granulocytes # (auto) 0.07 K/uL (0.00-0.02); Immature Granulocytes % (auto) 0.6 %; Lymphocytes # (auto) 0.71 K/uL (1.2-3.4); Lymphocytes % (auto) 5.9 %; Mean Corpuscular Hemoglobin 28.9 pg (25.0-34.0); Mean Corpuscular Hgb Conc 32.1 g/dL (32.0-36.0); Mean Corpuscular Volume 90.2 fL (80.0-100.0); Mean Platelet Volume 11.1 fL (9.4-12.3); Monocytes # (auto) 1.12 K/uL (0.24-0.82); Monocytes % (auto) 9.3 %; Neutrophils # (auto) 10.08 K/uL (1.4-6.5); Platelet Count 204 K/uL (130-400); RDW Coefficient of Variation 13.9 % (11.5-14.5); RDW Standard Deviation 45.6 fL (36.4-46.3); Red Blood Count 3.56 M/uL (3.93-5.22); White Blood Count 12.01 K/ul (4.8-10.8)
[2021-12-26 06:51] LABS: Troponin I High Sensitivity 122.5 pg/ml (0-14)
[2021-12-26 07:07] LABS: BUN Creatinine Ratio 45.3 (10-20); Calcium 8.2 mg/dl (8.5-10.1); Creatinine Clr Calc Pharmacy 41.4 ml/min; Est GFR (African American) 91.7 ml/min; Est GFR (Non-African American) 79.1 ml/min; Magnesium 1.6 mg/dl (1.7-2.4); Potassium 3.6 mmol/L (3.5-5.1)
[2021-12-26] MEDS ORDERED: CEFEPIME 1,000 MG in SYRINGE 0 ML IV SCH (08:00)
[2021-12-26] MEDS: SERTRALINE HCL 50 MG TABLET PO SCH (08:02)
[2021-12-26] MEDS: PANTOprazole 40 MG TAB PO SCH (08:03)
[2021-12-26] MEDS: METOPROLOL SUCC 25MG EXT REL TAB PO SCH (08:03)
[2021-12-26] MEDS: SIMVASTATIN 10 MG TAB PO SCH (08:03)
[2021-12-26] MEDS: ASPIRIN 81 MG ECTAB PO SCH (08:03)
[2021-12-26] MEDS ORDERED: MAGNESIUM SULFATE / D5W 1 GM/100 ML BAG IV ONE (08:06)
--- NOTE | 2021-12-26 08:20 | CT Scan Report ---
CHEST CTA for PULMONARY ARTERIES CT DOSE: 233.86 mGy.cm HISTORY: Shortness of breath. TECHNIQUE: Multiaxial CT images of the chest were performed following the intravenous administration of contrast to evaluate the pulmonary arteries. Maximal intensity projection images were also obtaine d. A dose lowering technique was utilized adhering to the principles of ALARA. COMPARISON STUDY: Chest CT 06/03/2017. FINDINGS: S-shaped scoliosis of the thoracolumbar spine. Prior vertebroplasty at T10. Severe compress ion deformity at T11 which is likely chronic. Deformity within the mid sternum is age indeterminate b ut favors an old, healed fracture. No significant soft tissue swelling to suggest an acute injury. A few punctate calcified granulomas noted within the visualized liver and spleen. No mediastinal or hil ar lymphadenopathy. The heart is normal in size. Normal caliber esophagus. Calcified plaque within th e thoracic aorta. No evidence for an aortic dissection. The ascending thoracic aorta measures up to 3 .3 cm in diameter. There is questionable small amount of chronic peripheral thrombus seen at the bifu rcation of the distal left main pulmonary/left upper lobe pulmonary arteries. However, this could be due to adjacent extraluminal soft tissue. No evidence for acute pulmonary embolus. No pneumothorax. B iapical pleural-parenchymal scarlike densities are noted. Mild bronchial wall thickening. A few opaci fied bilateral lower lobe bronchi. Fibrotic change and bibasilar patchy densities are noted. There ar e few scattered tree-in-bud nodular opacities seen within the mid to lower lung zones. There are few scattered groundglass nodules within the mid to lower lung zones. Dominant groundglass nodule within the periphery of the right upper lobe on image 177 measures 9 mm. Mild respiratory motion artifact. T here are old, healed bilateral rib fractures. IMPRESSION: 1. There is questionable small amount of chronic peripheral thrombus seen at the bifurcation of the d istal left main pulmonary/left upper lobe pulmonary arteries. However, this could be due to adjacent extraluminal soft tissue. No evidence for acute pulmonary embolus. 2. Partial opacification of the bilateral lower lobe bronchi with scattered tree-in-bud nodular opaci ties and scattered groundglass nodular densities within the mid to lower lung zones. This favors a mi ld pneumonitis and could be due to aspiration. Consider six-month chest CT follow-up of the groundgla ss nodules to ensure resolution. 3. Deformity within the mid sternum which is age indeterminate but likely represents an old, healed f racture. 4. Additional findings as described above. ACT 112: Negative or not required by law. Electronically signed by: Lukas Escalona M.D. 12/26/2021 8:18 AM
[2021-12-26 10:12] LABS: Partial Thromboplastin Ratio 2.8
[2021-12-26 10:40] LABS: Partial Thromboplastin Time 76.9 Seconds (21.0-31.0)
--- NOTE | 2021-12-26 11:11 | Hospitalist Progress Note ---
Date of Service December 26, 2021 Assessment & Plan (1) Sepsis: Plan: SIRS 3/4, qSOFA 2/3. CRP 18.79, ESR 128 and procalcitonin 1.78. Lactate 1.7. May be due to UTI as UA is dirty. CTA chest showing PE of left pulmonary artery bifurcation, as well as patchy densities in bilateral lower lobes. PE and ?atypical pneumonia may be contributing to sepsis as well. - MRSA nares negative - VBG: pH 7.34, pCO2 53 - urine legionella pending - s/p Cefepime in ED - continue with Cefepime 1g IV Q12H - cont. Azithromycin 500mg IV Q24H for atypical coverage - blood and urine cx pend - trend and adjust abx as necessary - s/p NSS 1L bolus - cont. LR @80cc/hr; additional 500mL bolus given for soft pressures - supplemental O2 as necessary to maintain SpO2 88-92% - trend CBC in AM (2) Pulmonary embolism: Plan: Findings per CTA chest, likely contributing to sepsis as stated above. Patient is relatively sedentary and has current infection, likely provoking this PE. - CTA: small chronic peripheral thrombus, no acute PE - s/p Heparin bolus, cont. gtt - Echo (12/26): EF 55-60%, right ventricular systolic pressure elevated, LVH normal - supplemental O2 as stated above - consider treating chronic PE outpatient (3) Laryngopharyngeal reflux: Plan: - chronic, previously evaluated - continue home Protonix - speech consulted for aspiration risk: puree diet with thin liquids, recommend stringent mouth care, consider video swallow study (4) Elevated troponin: Plan: hsTroponin elevated. No chest pain and EKG without ST/T abnormalities. Suspect demand ischemia in setting of tachycardia/sepsis/PE. - peaked at 126 (5) COPD (chronic obstructive pulmonary disease): Plan: Chronic, no home O2 or regular inhalers. (6) Bronchiectasis: Plan: Chronic. (7) Permanent atrial fibrillation: Plan: Chronic, however, not in a-fib here in the hospital. - continue home Metoprolol (8) Hypertension: Plan: continue home Metoprolol as stated above (9) Dyslipidemia: Plan: Continue home Simvastatin and baby Aspirin (10) Dementia: Plan: continue home Donepezil (11) Anxiety: Plan: continue home Sertraline (12) Glaucoma: Plan: -daughter indicates h/o of glaucoma on some eye drop not on home med list, she will call in the medication so we can add it to her list Plan FEN/GI: regular, LR @80cc/hr DVT Prophylaxis: Heparin gtt Code Status: DNR/DNI Disposition: PCU Admission and Anticipated Discharge Date Admission Date: December 25, 2021 Supervising Physician Co-Signing Physician Notes Attending attestation Pt seen and examined in concert with Dr. Baez. In agreement with the documented findings as noted in the resident documentation with any exceptions or additions as noted here. Patient resting in bed with daughter and at bedside. Daughter reports significant improvement over re-admission baseline - more vocal, interactive, responsive. Also reports h/o recurrent aspiration episodes, though no aspiration PNA. Has had [employer] evaluation in the past and teaching for positioning which she will often follow per daughter. On examination, S1/S2 nl RRR no MCG. Decreased BS at bases. Abd NT/ND BS+ve. Minimally responsive to direct questioning or on examination. Sepsis in the setting of PNA vs. UTI - continue cefepime, azithromycin and follow up cultures to narrow when available. Metabolic encephalopathy in the setting of dementia - improving to baseline per family. Pulmonary embolism, chronic - continue heparin drip, consider transition to PO AC during admission Atrial fibrillation, chronic - sinus today. On metoprolol. No AC presently. 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 DNR/DNI reveiwed. Subjective Patient seen at bedside this morning. and daughter at bedside as well. Pt resting comfortably, h/o dementia and poor historian. Daughter says she appears much improved from initial presentation. Not confused and well appearing per daughter. Review of Systems Review of Systems: Unobtainable due to cognitive status Physical Exam Physical Exam: General: A&O to self only (dementia). NAD. Cooperative. HEENT: Atraumatic, normocephalic. Pulm: Decreased breath sounds bilaterally. No wheezes, rales, rhonchi. Sym metrical chest rise. No increase work of breathing. No respiratory distress. Cardiac: RRR, no murmurs. Radial pulses intact and symmetrical. No LE edema. Abdominal: soft, nontender, nondistended, +BS Results & Data Results & Data ([facility]) Vital Signs (Past 12 Hours) Vital Signs Temp Pulse Pulse Resp BP Pulse Ox O2 Del Method 12/26/21 10:00 87 12/26/21 07:05 37.0 C 92 H 16 119/61 94 Nasal Cannula 12/26/21 03:44 98 H 12/26/21 04:00 Nasal Cannula 12/26/21 03:59 36.6 C 97 H 17 152/74 H Nasal Cannula 12/26/21 03:00 94 H 30 H 131/73 94 Nasal Cannula 12/26/21 02:33 99 H 28 H 132/75 93 Nasal Cannula 12/25/21 23:30 106 H 28 H 141/112 H 93 Nasal Cannula 12/26/21 01:00 102 H 28 H 139/80 95 Nasal Cannula O2 Flow Rate 12/26/21 10:00 12/26/21 07:05 2 12/26/21 03:44 12/26/21 04:00 2 12/26/21 03:59 2 12/26/21 03:00 2 12/26/21 02:33 2 12/25/21 23:30 2 12/26/21 01:00 5 Laboratory Results 12/26/21 12/26/21 12/26/21 Range/Units 16:30 09:23 05:41 WBC (4.8-10.8) K/ul RBC (3.93-5.22) M/uL Hgb (12.0-16.0) g/dl Hct (34.1-44.9) % MCV (80.0-100.0) fL MCH (25.0-34.0) pg MCHC (32.0-36.0) g/dL RDW Std Deviation (36.4-46.3) fL RDW Coeff of Mj (11.5-14.5) % Plt Count (130-400) K/uL MPV (9.4-12.3) fL Immature Gran % (Auto) % Neut % (Auto) % Lymph % (Auto) % [place] % (Auto) % Eos % (Auto) % Baso % (Auto) % Neut # (Auto) (1.4-6.5) K/uL Lymph # (Auto) (1.2-3.4) K/uL [place] # (Auto) (0.24-0.82) K/uL Eos # (Auto) (0-0.50) K/uL Baso # (Auto) (0-0.2) K/uL Immature Gran # (Auto) (0.00-0.02) K/uL ESR (0-30) mm/hr APTT Pending 76.9 H* PTT Ratio Pending 2.8 VBG pH (7.36-7.41) VBG pCO2 (38-50) mmHg VBG pO2 mmHg VBG HCO3 mmol/L VBG O2 Saturation % VBG Base Excess mEq/L Sodium 141 (136-145) mmol/L Potassium 3.6 (3.5-5.1) mmol/L Chloride 105 (98-107) mmol/L Carbon Dioxide 28 (21-32) mmol/L Anion Gap 8 (3-11) BUN 29 H (6-23) mg/dl Creatinine 0.64 (0.6-1.2) mg/dl Est Cr Clr Drug Dosing 41.4 ml/min Est GFR ( Amer) 91.7 ml/min Est GFR (Non-Af Amer) 79.1 ml/min BUN/Creatinine Ratio 45.3 H (10-20) Glucose 174 H (70-99(Fasting)) mg/dl Lactate (0.4-2.0) mmol/L Calcium 8.2 L (8.5-10.1) mg/dl Magnesium 1.6 L (1.7-2.4) mg/dl Total Bilirubin (0.2-1.0) mg/dl AST (13-39) U/L ALT (7-52) U/L Alkaline Phosphatase (34-104) U/L Troponin I High Sens 122.5 H* D (0-14) pg/ml C-Reactive Protein (0-0.5) mg/dl Total Protein (6.0-8.3) gm/dl Albumin (3.4-5.0) gm/dl Globulin (2.5-4.0) gm/dl Albumin/Globulin Ratio (0.9-2) Procalcitonin (0-0.5) ng/ml TSH (0.300-4.500) uIu/ml Free T4 (0.61-1.60) ng/dl Urine Color Urine Appearance (Clear) Urine pH (4.5-7.5) Ur Specific [place] (1.000-1.030) Urine Protein (Negative) Urine Glucose (UA) (Negative) Urine Ketones (Negative) Urine Blood (Negative) Urine Nitrite (Negative) Urine Bilirubin (Negative) Urine Urobilinogen (Negative) Ur Leukocyte Esterase (Negative) Urine WBC (Auto) (0-5) /hpf Urine RBC (Auto) (0-4) /hpf U Hyaline Cast (Auto) (0-5) /lpf U Epithel Cells (Auto) (0-5) /lpf Urine Bacteria (Auto) (Negative) Ur Renal Epithelial Cell Urine Crystals Calcium Oxalate Crystal (None Prsent) Urine Mucus (None Prsent) Nasal Screen MRSA (PCR) (Negative) SARS-CoV-2 (PCR) (Negative) Influenza Type A (PCR) (Neg) Influenza Type B (PCR) (Neg) Urine Legionella Ag RSV (RT-PCR) (Neg) 12/26/21 12/26/21 12/26/21 Range/Units 05:41 02:45 01:50 WBC 12.01 H (4.8-10.8) K/ul RBC 3.56 L (3.93-5.22) M/uL Hgb 10.3 L (12.0-16.0) g/dl Hct 32.1 L (34.1-44.9) % MCV 90.2 (80.0-100.0) fL MCH 28.9 (25.0-34.0) pg MCHC 32.1 (32.0-36.0) g/dL RDW Std Deviation 45.6 (36.4-46.3) fL RDW Coeff of Mj 13.9 (11.5-14.5) % Plt Count 204 (130-400) K/uL MPV 11.1 (9.4-12.3) fL Immature Gran % (Auto) 0.6 % Neut % (Auto) 84.0 % Lymph % (Auto) 5.9 % [place] % (Auto) 9.3 % Eos % (Auto) 0.0 % Baso % (Auto) 0.2 % Neut # (Auto) 10.08 H (1.4-6.5) K/uL Lymph # (Auto) 0.71 L (1.2-3.4) K/uL [place] # (Auto) 1.12 H (0.24-0.82) K/uL Eos # (Auto) 0.00 (0-0.50) K/uL Baso # (Auto) 0.03 (0-0.2) K/uL Immature Gran # (Auto) 0.07 H (0.00-0.02) K/uL ESR (0-30) mm/hr APTT 28.3 Cancelled PTT Ratio 1.0 Cancelled VBG pH (7.36-7.41) VBG pCO2 (38-50) mmHg VBG pO2 mmHg VBG HCO3 mmol/L VBG O2 Saturation % VBG Base Excess mEq/L Sodium (136-145) mmol/L Potassium (3.5-5.1) mmol/L Chloride (98-107) mmol/L Carbon Dioxide (21-32) mmol/L Anion Gap (3-11) BUN (6-23) mg/dl Creatinine (0.6-1.2) mg/dl Est Cr Clr Drug Dosing ml/min Est GFR ( Amer) ml/min Est GFR (Non-Af Amer) ml/min BUN/Creatinine Ratio (10-20) Glucose (70-99(Fasting)) mg/dl Lactate (0.4-2.0) mmol/L Calcium (8.5-10.1) mg/dl Magnesium (1.7-2.4) mg/dl Total Bilirubin (0.2-1.0) mg/dl AST (13-39) U/L ALT (7-52) U/L Alkaline Phosphatase (34-104) U/L Troponin I High Sens (0-14) pg/ml C-Reactive Protein (0-0.5) mg/dl Total Protein (6.0-8.3) gm/dl Albumin (3.4-5.0) gm/dl Globulin (2.5-4.0) gm/dl Albumin/Globulin Ratio (0.9-2) Procalcitonin (0-0.5) ng/ml TSH (0.300-4.500) uIu/ml Free T4 (0.61-1.60) ng/dl Urine Color Urine Appearance (Clear) Urine pH (4.5-7.5) Ur Specific [place] (1.000-1.030) Urine Protein (Negative) Urine Glucose (UA) (Negative) Urine Ketones (Negative) Urine Blood (Negative) Urine Nitrite (Negative) Urine Bilirubin (Negative) Urine Urobilinogen (Negative) Ur Leukocyte Esterase (Negative) Urine WBC (Auto) (0-5) /hpf Urine RBC (Auto) (0-4) /hpf U Hyaline Cast (Auto) (0-5) /lpf U Epithel Cells (Auto) (0-5) /lpf Urine Bacteria (Auto) (Negative) Ur Renal Epithelial Cell Urine Crystals Calcium Oxalate Crystal (None Prsent) Urine Mucus (None Prsent) Nasal Screen MRSA (PCR) (Negative) SARS-CoV-2 (PCR) (Negative) Influenza Type A (PCR) (Neg) Influenza Type B (PCR) (Neg) Urine Legionella Ag RSV (RT-PCR) (Neg) 12/25/21 12/25/21 12/25/21 Range/Units 23:49 23:49 22:55 WBC (4.8-10.8) K/ul RBC (3.93-5.22) M/uL Hgb (12.0-16.0) g/dl Hct (34.1-44.9) % MCV (80.0-100.0) fL MCH (25.0-34.0) pg MCHC (32.0-36.0) g/dL RDW Std Deviation (36.4-46.3) fL RDW Coeff of Mj (11.5-14.5) % Plt Count (130-400) K/uL MPV (9.4-12.3) fL Immature Gran % (Auto) % Neut % (Auto) % Lymph % (Auto) % [place] % (Auto) % Eos % (Auto) % Baso % (Auto) % Neut # (Auto) (1.4-6.5) K/uL Lymph # (Auto) (1.2-3.4) K/uL [place] # (Auto) (0.24-0.82) K/uL Eos # (Auto) (0-0.50) K/uL Baso # (Auto) (0-0.2) K/uL Immature Gran # (Auto) (0.00-0.02) K/uL ESR (0-30) mm/hr APTT PTT Ratio VBG pH 7.34 L (7.36-7.41) VBG pCO2 53 H (38-50) mmHg VBG pO2 29 mmHg VBG HCO3 29 mmol/L VBG O2 Saturation < 60.0 % VBG Base Excess 1.8 mEq/L Sodium (136-145) mmol/L Potassium (3.5-5.1) mmol/L Chloride (98-107) mmol/L Carbon Dioxide (21-32) mmol/L Anion Gap (3-11) BUN (6-23) mg/dl Creatinine (0.6-1.2) mg/dl Est Cr Clr Drug Dosing ml/min Est GFR ( Amer) ml/min Est GFR (Non-Af Amer) ml/min BUN/Creatinine Ratio (10-20) Glucose (70-99(Fasting)) mg/dl Lactate (0.4-2.0) mmol/L Calcium (8.5-10.1) mg/dl Magnesium (1.7-2.4) mg/dl Total Bilirubin (0.2-1.0) mg/dl AST (13-39) U/L ALT (7-52) U/L Alkaline Phosphatase (34-104) U/L Troponin I High Sens 197.7 H* D (0-14) pg/ml C-Reactive Protein 18.79 H (0-0.5) mg/dl Total Protein (6.0-8.3) gm/dl Albumin (3.4-5.0) gm/dl Globulin (2.5-4.0) gm/dl Albumin/Globulin Ratio (0.9-2) Procalcitonin (0-0.5) ng/ml TSH (0.300-4.500) uIu/ml Free T4 (0.61-1.60) ng/dl Urine Color Urine Appearance (Clear) Urine pH (4.5-7.5) Ur Specific [place] (1.000-1.030) Urine Protein (Negative) Urine Glucose (UA) (Negative) Urine Ketones (Negative) Urine Blood (Negative) Urine Nitrite (Negative) Urine Bilirubin (Negative) Urine Urobilinogen (Negative) Ur Leukocyte Esterase (Negative) Urine WBC (Auto) (0-5) /hpf Urine RBC (Auto) (0-4) /hpf U Hyaline Cast (Auto) (0-5) /lpf U Epithel Cells (Auto) (0-5) /lpf Urine Bacteria (Auto) (Negative) Ur Renal Epithelial Cell Urine Crystals Calcium Oxalate Crystal (None Prsent) Urine Mucus (None Prsent) Nasal Screen MRSA (PCR) Negative (Negative) SARS-CoV-2 (PCR) (Negative) Influenza Type A (PCR) (Neg) Influenza Type B (PCR) (Neg) Urine Legionella Ag RSV (RT-PCR) (Neg) 12/25/21 12/25/21 12/25/21 Range/Units 21:40 21:40 20:18 WBC (4.8-10.8) K/ul RBC (3.93-5.22) M/uL Hgb (12.0-16.0) g/dl Hct (34.1-44.9) % MCV (80.0-100.0) fL MCH (25.0-34.0) pg MCHC (32.0-36.0) g/dL RDW Std Deviation (36.4-46.3) fL RDW Coeff of Mj (11.5-14.5) % Plt Count (130-400) K/uL MPV (9.4-12.3) fL Immature Gran % (Auto) % Neut % (Auto) % Lymph % (Auto) % [place] % (Auto) % Eos % (Auto) % Baso % (Auto) % Neut # (Auto) (1.4-6.5) K/uL Lymph # (Auto) (1.2-3.4) K/uL [place] # (Auto) (0.24-0.82) K/uL Eos # (Auto) (0-0.50) K/uL Baso # (Auto) (0-0.2) K/uL Immature Gran # (Auto) (0.00-0.02) K/uL ESR (0-30) mm/hr APTT PTT Ratio VBG pH (7.36-7.41) VBG pCO2 (38-50) mmHg VBG pO2 mmHg VBG HCO3 mmol/L VBG O2 Saturation % VBG Base Excess mEq/L Sodium (136-145) mmol/L Potassium (3.5-5.1) mmol/L Chloride (98-107) mmol/L Carbon Dioxide (21-32) mmol/L Anion Gap (3-11) BUN (6-23) mg/dl Creatinine (0.6-1.2) mg/dl Est Cr Clr Drug Dosing ml/min Est GFR ( Amer) ml/min Est GFR (Non-Af Amer) ml/min BUN/Creatinine Ratio (10-20) Glucose (70-99(Fasting)) mg/dl Lactate 1.7 (0.4-2.0) mmol/L Calcium (8.5-10.1) mg/dl Magnesium (1.7-2.4) mg/dl Total Bilirubin (0.2-1.0) mg/dl AST (13-39) U/L ALT (7-52) U/L Alkaline Phosphatase (34-104) U/L Troponin I High Sens (0-14) pg/ml C-Reactive Protein (0-0.5) mg/dl Total Protein (6.0-8.3) gm/dl Albumin (3.4-5.0) gm/dl Globulin (2.5-4.0) gm/dl Albumin/Globulin Ratio (0.9-2) Procalcitonin (0-0.5) ng/ml TSH (0.300-4.500) uIu/ml Free T4 (0.61-1.60) ng/dl Urine Color Dark Yellow Urine Appearance Turbid A (Clear) Urine pH 5.5 (4.5-7.5) Ur Specific [place] 1.021 (1.000-1.030) Urine Protein 3+ H (Negative) Urine Glucose (UA) Negative (Negative) Urine Ketones Negative (Negative) Urine Blood 3+ H (Negative) Urine Nitrite Negative (Negative) Urine Bilirubin 1+ H (Negative) Urine Urobilinogen Negative (Negative) Ur Leukocyte Esterase Trace H (Negative) Urine WBC (Auto) 10-30 H (0-5) /hpf Urine RBC (Auto) 10-30 H (0-4) /hpf U Hyaline Cast (Auto) 5-10 H (0-5) /lpf U Epithel Cells (Auto) >30 H (0-5) /lpf Urine Bacteria (Auto) 1+ H (Negative) Ur Renal Epithelial Cell Not Reportable Urine Crystals Not Reportable Calcium Oxalate Crystal Present A (None Prsent) Urine Mucus Present A (None Prsent) Nasal Screen MRSA (PCR) (Negative) SARS-CoV-2 (PCR) (Negative) Influenza Type A (PCR) (Neg) Influenza Type B (PCR) (Neg) Urine Legionella Ag Pending RSV (RT-PCR) (Neg) 12/25/21 12/25/21 12/25/21 Range/Units 19:25 19:03 18:30 WBC (4.8-10.8) K/ul RBC (3.93-5.22) M/uL Hgb (12.0-16.0) g/dl Hct (34.1-44.9) % MCV (80.0-100.0) fL MCH (25.0-34.0) pg MCHC (32.0-36.0) g/dL RDW Std Deviation (36.4-46.3) fL RDW Coeff of Mj (11.5-14.5) % Plt Count (130-400) K/uL MPV (9.4-12.3) fL Immature Gran % (Auto) % Neut % (Auto) % Lymph % (Auto) % [place] % (Auto) % Eos % (Auto) % Baso % (Auto) % Neut # (Auto) (1.4-6.5) K/uL Lymph # (Auto) (1.2-3.4) K/uL [place] # (Auto) (0.24-0.82) K/uL Eos # (Auto) (0-0.50) K/uL Baso # (Auto) (0-0.2) K/uL Immature Gran # (Auto) (0.00-0.02) K/uL ESR 128 H (0-30) mm/hr APTT PTT Ratio VBG pH (7.36-7.41) VBG pCO2 (38-50) mmHg VBG pO2 mmHg VBG HCO3 mmol/L VBG O2 Saturation % VBG Base Excess mEq/L Sodium (136-145) mmol/L Potassium (3.5-5.1) mmol/L Chloride (98-107) mmol/L Carbon Dioxide (21-32) mmol/L Anion Gap (3-11) BUN (6-23) mg/dl Creatinine (0.6-1.2) mg/dl Est Cr Clr Drug Dosing ml/min Est GFR ( Amer) ml/min Est GFR (Non-Af Amer) ml/min BUN/Creatinine Ratio (10-20) Glucose (70-99(Fasting)) mg/dl Lactate (0.4-2.0) mmol/L Calcium (8.5-10.1) mg/dl Magnesium (1.7-2.4) mg/dl Total Bilirubin (0.2-1.0) mg/dl AST (13-39) U/L ALT (7-52) U/L Alkaline Phosphatase (34-104) U/L Troponin I High Sens (0-14) pg/ml C-Reactive Protein (0-0.5) mg/dl Total Protein (6.0-8.3) gm/dl Albumin (3.4-5.0) gm/dl Globulin (2.5-4.0) gm/dl Albumin/Globulin Ratio (0.9-2) Procalcitonin 1.78 H (0-0.5) ng/ml TSH (0.300-4.500) uIu/ml Free T4 (0.61-1.60) ng/dl Urine Color Urine Appearance (Clear) Urine pH (4.5-7.5) Ur Specific [place] (1.000-1.030) Urine Protein (Negative) Urine Glucose (UA) (Negative) Urine Ketones (Negative) Urine Blood (Negative) Urine Nitrite (Negative) Urine Bilirubin (Negative) Urine Urobilinogen (Negative) Ur Leukocyte Esterase (Negative) Urine WBC (Auto) (0-5) /hpf Urine RBC (Auto) (0-4) /hpf U Hyaline Cast (Auto) (0-5) /lpf U Epithel Cells (Auto) (0-5) /lpf Urine Bacteria (Auto) (Negative) Ur Renal Epithelial Cell Urine Crystals Calcium Oxalate Crystal (None Prsent) Urine Mucus (None Prsent) Nasal Screen MRSA (PCR) (Negative) SARS-CoV-2 (PCR) NEGATIVE (Negative) Influenza Type A (PCR) Negative (Neg) Influenza Type B (PCR) Negative (Neg) Urine Legionella Ag RSV (RT-PCR) Negative (Neg) 12/25/21 12/25/21 12/25/21 Range/Units 18:30 18:30 18:30 WBC 15.01 H (4.8-10.8) K/ul RBC 3.98 (3.93-5.22) M/uL Hgb 11.4 L (12.0-16.0) g/dl Hct 36.4 (34.1-44.9) % MCV 91.5 (80.0-100.0) fL MCH 28.6 (25.0-34.0) pg MCHC 31.3 L (32.0-36.0) g/dL RDW Std Deviation 46.5 H (36.4-46.3) fL RDW Coeff of Mj 13.8 (11.5-14.5) % Plt Count 249 (130-400) K/uL MPV 11.0 (9.4-12.3) fL Immature Gran % (Auto) 0.7 % Neut % (Auto) 75.7 % Lymph % (Auto) 14.9 % [place] % (Auto) 8.5 % Eos % (Auto) 0.0 % Baso % (Auto) 0.2 % Neut # (Auto) 11.36 H (1.4-6.5) K/uL Lymph # (Auto) 2.24 (1.2-3.4) K/uL [place] # (Auto) 1.28 H (0.24-0.82) K/uL Eos # (Auto) 0.00 (0-0.50) K/uL Baso # (Auto) 0.03 (0-0.2) K/uL Immature Gran # (Auto) 0.10 H (0.00-0.02) K/uL ESR (0-30) mm/hr APTT PTT Ratio VBG pH (7.36-7.41) VBG pCO2 (38-50) mmHg VBG pO2 mmHg VBG HCO3 mmol/L VBG O2 Saturation % VBG Base Excess mEq/L Sodium 140 (136-145) mmol/L Potassium 3.8 (3.5-5.1) mmol/L Chloride 100 (98-107) mmol/L Carbon Dioxide 27 (21-32) mmol/L Anion Gap 13 H (3-11) BUN 30 H (6-23) mg/dl Creatinine 0.88 (0.6-1.2) mg/dl Est Cr Clr Drug Dosing 28.6 ml/min Est GFR ( Amer) 67.5 ml/min Est GFR (Non-Af Amer) 58.3 ml/min BUN/Creatinine Ratio 34.1 H (10-20) Glucose 197 H (70-99(Fasting)) mg/dl Lactate (0.4-2.0) mmol/L Calcium 9.0 (8.5-10.1) mg/dl Magnesium 1.7 (1.7-2.4) mg/dl Total Bilirubin 0.6 (0.2-1.0) mg/dl AST 39 (13-39) U/L ALT 34 (7-52) U/L Alkaline Phosphatase 116 H (34-104) U/L Troponin I High Sens 126.5 H* (0-14) pg/ml C-Reactive Protein (0-0.5) mg/dl Total Protein 9.1 H (6.0-8.3) gm/dl Albumin 3.4 (3.4-5.0) gm/dl Globulin 5.7 H (2.5-4.0) gm/dl Albumin/Globulin Ratio 0.6 L (0.9-2) Procalcitonin (0-0.5) ng/ml TSH 5.779 H (0.300-4.500) uIu/ml Free T4 0.95 (0.61-1.60) ng/dl Urine Color Urine Appearance (Clear) Urine pH (4.5-7.5) Ur Specific [place] (1.000-1.030) Urine Protein (Negative) Urine Glucose (UA) (Negative) Urine Ketones (Negative) Urine Blood (Negative) Urine Nitrite (Negative) Urine Bilirubin (Negative) Urine Urobilinogen (Negative) Ur Leukocyte Esterase (Negative) Urine WBC (Auto) (0-5) /hpf Urine RBC (Auto) (0-4) /hpf U Hyaline Cast (Auto) (0-5) /lpf U Epithel Cells (Auto) (0-5) /lpf Urine Bacteria (Auto) (Negative) Ur Renal Epithelial Cell Urine Crystals Calcium Oxalate Crystal (None Prsent) Urine Mucus (None Prsent) Nasal Screen MRSA (PCR) (Negative) SARS-CoV-2 (PCR) (Negative) Influenza Type A (PCR) (Neg) Influenza Type B (PCR) (Neg) Urine Legionella Ag RSV (RT-PCR) (Neg) Resident Activity Tracking Resident Involvement: Resident Care Provided Care Provided: Adult [facility]
[2021-12-26] MEDS ORDERED: SODIUM CHLORIDE 0.9% 1000ML 500 ML IV ONE (12:34)
[2021-12-26] MEDS: ACETAMINOPHEN 325 MG TAB PO PRN ×2 (15:31→22:16)
--- NOTE | 2021-12-26 16:33 | XCELERA ---
[id number]
[2021-12-26 17:19] LABS: Partial Thromboplastin Ratio 2.2
[2021-12-26 17:21] LABS: Partial Thromboplastin Time 60.8 Seconds (21.0-31.0)
--- NOTE | 2021-12-26 17:57 | Electrocardiogram Report ---
Test Reason : Blood Pressure : / mmHG Vent. Rate : 119 BPM Atrial Rate : 119 BPM P-R Int : 180 ms QRS Dur : 082 ms QT Int : 304 ms P-R-T Axes : 071 050 -10 degrees QTc Int : 427 ms Poor data quality, interpretation may be adversely affected Sinus tachycardia Left ventricular hypertrophy with repolarization abnormality Abnormal ECG When compared with ECG of 03-JUN-2017 13:08, Vent. rate has increased BY [address] no longer elevated in Inferior leads T wave inversion now evident in Inferior leads Nonspecific T wave abnormality now evident in Lateral leads Confirmed by Leland Main ([id number] on 12/26/2021 5:56:56 PM Referred By: REFERRED SELF Confirmed By:Norberto Main
[2021-12-26] MEDS: CEFEPIME 2,000 MG in SYRINGE 0 ML IV SCH (20:13)
[2021-12-26] MEDS: DONEPEZIL HCL 10 MG TAB PO SCH (20:14)
[2021-12-26] MEDS ORDERED: LORazepam 0.5 MG TAB PO ONE (21:56)
[2021-12-27] MEDS: AZITHROMYCIN 500 MG in DEXTROSE 5% 250 ML IV SCH (02:50)
[2021-12-27] MEDS: LACTATED RINGER'S 1,000 ML IV SCH ×2 (05:24→17:32)
[2021-12-27 06:11] LABS: Basophils # (auto) 0.02 K/uL (0-0.2); Basophils % (auto) 0.2 %; Hematocrit (blood only) 30.9 % (34.1-44.9); Hemoglobin 9.6 g/dl (12.0-16.0); Immature Granulocytes # (auto) 0.08 K/uL (0.00-0.02); Immature Granulocytes % (auto) 0.7 %; Lymphocytes # (auto) 1.01 K/uL (1.2-3.4); Lymphocytes % (auto) 9.2 %; Mean Corpuscular Hemoglobin 28.2 pg (25.0-34.0); Mean Corpuscular Hgb Conc 31.1 g/dL (32.0-36.0); Mean Corpuscular Volume 90.9 fL (80.0-100.0); Monocytes # (auto) 0.77 K/uL (0.24-0.82); Neutrophils # (auto) 9.06 K/uL (1.4-6.5); Neutrophils % (auto) 82.9 %; Platelet Count 176 K/uL (130-400); RDW Coefficient of Variation 14.1 % (11.5-14.5); RDW Standard Deviation 47.2 fL (36.4-46.3); White Blood Count 10.94 K/ul (4.8-10.8)
[2021-12-27 06:37] LABS: Albumin Globulin Ratio 0.6 (0.9-2); Albumin Level 2.7 gm/dl (3.4-5.0); BUN Creatinine Ratio 63.3 (10-20); Bilirubin,Total 0.4 mg/dl (0.2-1.0); C Reactive Protein 23.96 mg/dl (0-0.5); Calcium 8.2 mg/dl (8.5-10.1); Creatinine Clr Calc Pharmacy 56.9 ml/min; Est GFR (African American) 100.1 ml/min; Est GFR (Non-African American) 86.4 ml/min; Globulin 4.8 gm/dl (2.5-4.0); Potassium 3.5 mmol/L (3.5-5.1); Total Protein 7.5 gm/dl (6.0-8.3)
[2021-12-27 06:40] LABS: Partial Thromboplastin Ratio 2.4
[2021-12-27 06:42] LABS: Partial Thromboplastin Time 65.2 Seconds (21.0-31.0)
[2021-12-27] MEDS: SIMVASTATIN 10 MG TAB PO SCH (08:16)
[2021-12-27] MEDS: PANTOprazole 40 MG TAB PO SCH (08:16)
[2021-12-27] MEDS: SERTRALINE HCL 50 MG TABLET PO SCH (08:17)
[2021-12-27] MEDS: METOPROLOL SUCC 25MG EXT REL TAB PO SCH (08:17)
[2021-12-27] MEDS: ASPIRIN 81 MG ECTAB PO SCH (08:17)
[2021-12-27] MEDS: CEFEPIME 2,000 MG in SYRINGE 0 ML IV SCH ×2 (08:20→20:23)
[2021-12-27] MEDS: HEPARIN SODIUM/DEXTROSE 25,000 UNITS/500 ML BAG IV SCH (08:27)
--- NOTE | 2021-12-27 10:00 | Hospitalist Progress Note ---
Date of Service December 27, 2021 Assessment & Plan (1) Sepsis: Plan: - SIRS 3/4, qSOFA 2/3. CRP 18.79, ESR 128 and procalcitonin 1.78. Lactate 1.7. May be due to UTI as UA infected - CTA chest showing PE of left pulmonary artery bifurcation, as well as patchy densities in bilateral lower lobes. PE and atypical pneumonia may be contributing to sepsis as well. - MRSA nares negative, blood and urine cx preliminary negative thus far - CRP, procalcitonin uptrending- 19 to 24, 1.8 to 2.8. WBC 12 to 11 - Continue cefepime + azithromycin (day 2 of abx) - Continue LR 80cc/hr - Will attempt to hold goals of care discussion with family today -Will address risk/benefit of anticoagulation for chronic PE + AF -Pt is currently DNR/DNI and we are to avoid any heroic measures as well -Given pt's poor prognosis, will discuss option of comfort measures with family (2) Pulmonary embolism: Plan: Findings per CTA chest, likely contributing to sepsis as stated above. Patient is relatively sedentary and has current infection, likely provoking this PE. - CTA: small chronic peripheral thrombus, no acute PE - s/p Heparin bolus, cont. gtt - Echo (12/26): EF 55-60%, right ventricular systolic pressure elevated, LVH normal - supplemental O2 as stated above - Anticoagulation discussion as above (3) Laryngopharyngeal reflux: Plan: - chronic, previously evaluated - continue home Protonix - speech consulted for aspiration risk: puree diet with thin liquids, recommend stringent mouth care, consider video swallow study (4) Elevated troponin: Plan: hsTroponin elevated. No chest pain and EKG without ST/T abnormalities. Suspect demand ischemia in setting of tachycardia/sepsis/PE. - peaked at 198 on 12/25 with downtrend to 126 on 12/26 (5) COPD (chronic obstructive pulmonary disease): Plan: Chronic, no home O2 or regular inhalers -Continue O2 supplementation- 2L NC -Albuterol PRN for dyspnea (6) Permanent atrial fibrillation: Plan: Chronic, however, not in a-fib here in the hospital. - continue home Toprol 12.5 mg daily - Not on any anticoagulation- discussion as above under chronic PE (7) Hypertension: Plan: continue home Metoprolol as stated above (8) Dyslipidemia: Plan: Continue home Simvastatin and baby Aspirin (9) Dementia: Plan: continue home Donepezil (10) Anxiety: Plan: continue home Sertraline (11) Glaucoma: Plan: -daughter indicates h/o of glaucoma on some eye drop not on home med list, she will call in the medication so we can add it to her list -This has yet to occur Plan FEN/GI: regular, LR @80cc/hr DVT Prophylaxis: Heparin gtt Code Status: DNR/DNI Disposition: PCU Admission and Anticipated Discharge Date Admission Date: December 25, 2021 Supervising Physician Co-Signing Physician Notes Attending attestation Pt seen and examined in concert with Dr. Frankel. In agreement with the documented findings as noted in the resident documentation with any exceptions or additions as noted here. Mentating stable from previous - answering questions in immediate context without difficulty but unable to provide more complex response. Reports no n/v, RECIO, chest pain/SOB. On examination, S1/S2 nl RRR no MCG. Decreased breath sounds bilaterally at bases. Abd NT/ND BS+ve. Sepsis in the setting of PNA vs. UTI - continue cefepime, azithromycin and follow up cultures to narrow when available. Metabolic encephalopathy in the setting of dementia - at baseline per family. Pulmonary embolism, chronic - continue heparin drip. Per Dr. Frankel's discussion with family, will eschew further AC and transition to comfort measures at discharge. Case mgmt to be notified. Atrial fibrillation, chronic - currently sinus. Continue metoprolol. AC as above Else see resident documentation as noted. Subjective No acute events overnight. Pt appeared comfortable in bed this morning, did not endorse any acute complaints but interview limited by her mental status. Review of Systems Review of Systems: Per Subjective Physical Exam Physical Exam: General: A&O to self only. NAD. Cooperative. Thin HEENT: Atraumatic, normocephalic. Pulm: Decreased breath sounds bilaterally. -wheezes, -crackles. Symmetrical chest rise. No increase work of breathing. No respiratory distress. Cardiac: RRR, -mrg. Radial pulses intact and symmetrical. No LE edema. Abdominal: soft, non-tender, non-distended, BS x 4 Results & Data Results & Data ([facility]) Vital Signs (Past 12 Hours) Vital Signs Temp Pulse Pulse Resp BP BP Pulse Ox 12/27/21 07:57 79 12/27/21 07:06 36.7 C 81 17 134/63 96 12/27/21 04:25 36.5 C 83 20 153/62 H 92 12/26/21 23:00 87 12/26/21 22:25 36.7 C 86 24 148/73 H 96 O2 Del Method O2 Flow Rate 12/27/21 07:57 12/27/21 07:06 Room Air 12/27/21 04:25 Nasal Cannula 2 12/26/21 23:00 12/26/21 22:25 Nasal Cannula 2.0 Resident Activity Tracking Resident Involvement: Resident Care Provided Care Provided: Adult Hospital Medicine
[2021-12-27] MEDS: DONEPEZIL HCL 10 MG TAB PO SCH (20:23)
[2021-12-28] MEDS: AZITHROMYCIN 500 MG in DEXTROSE 5% 250 ML IV SCH (04:28)
[2021-12-28] MEDS: LACTATED RINGER'S 1,000 ML IV SCH ×2 (04:32→20:19)
[2021-12-28 06:14] LABS: Basophils # (auto) 0.02 K/uL (0-0.2); Basophils % (auto) 0.2 %; Eosinophils # (auto) 0.01 K/uL (0-0.50); Eosinophils % (auto) 0.1 %; Hemoglobin 9.4 g/dl (12.0-16.0); Immature Granulocytes # (auto) 0.08 K/uL (0.00-0.02); Immature Granulocytes % (auto) 0.8 %; Lymphocytes # (auto) 0.84 K/uL (1.2-3.4); Lymphocytes % (auto) 8.3 %; Mean Corpuscular Hemoglobin 28.7 pg (25.0-34.0); Mean Corpuscular Hgb Conc 31.3 g/dL (32.0-36.0); Mean Corpuscular Volume 91.5 fL (80.0-100.0); Mean Platelet Volume 11.1 fL (9.4-12.3); Monocytes # (auto) 0.76 K/uL (0.24-0.82); Monocytes % (auto) 7.5 %; Neutrophils # (auto) 8.47 K/uL (1.4-6.5); Neutrophils % (auto) 83.1 %; Platelet Count 180 K/uL (130-400); RDW Coefficient of Variation 13.7 % (11.5-14.5); RDW Standard Deviation 46.1 fL (36.4-46.3); Red Blood Count 3.28 M/uL (3.93-5.22); White Blood Count 10.18 K/ul (4.8-10.8)
[2021-12-28 06:39] LABS: Partial Thromboplastin Ratio 2.6
[2021-12-28 06:49] LABS: Partial Thromboplastin Time 71.2 Seconds (21.0-31.0)
[2021-12-28 06:54] LABS: Albumin Globulin Ratio 0.6 (0.9-2); Albumin Level 2.4 gm/dl (3.4-5.0); BUN Creatinine Ratio 54.8 (10-20); Bilirubin,Total 0.4 mg/dl (0.2-1.0); C Reactive Protein 17.27 mg/dl (0-0.5); Calcium 7.8 mg/dl (8.5-10.1); Creatinine Clr Calc Pharmacy 67.2 ml/min; Est GFR (African American) 105.3 ml/min; Est GFR (Non-African American) 90.9 ml/min; Globulin 4.3 gm/dl (2.5-4.0); Magnesium 1.5 mg/dl (1.7-2.4); Potassium 3.3 mmol/L (3.5-5.1); Total Protein 6.7 gm/dl (6.0-8.3)
[2021-12-28] MEDS ORDERED: POTASSIUM CHLORIDE CRTAB 20 MEQ TABCR PO STA (07:19)
[2021-12-28] MEDS: PANTOprazole 40 MG TAB PO SCH (10:10)
[2021-12-28] MEDS: SERTRALINE HCL 50 MG TABLET PO SCH (10:10)
[2021-12-28] MEDS: METOPROLOL SUCC 25MG EXT REL TAB PO SCH (10:10)
[2021-12-28] MEDS: SIMVASTATIN 10 MG TAB PO SCH (10:11)
[2021-12-28] MEDS: ASPIRIN 81 MG ECTAB PO SCH (10:12)
--- NOTE | 2021-12-28 10:23 | Hospitalist Progress Note ---
Date of Service December 28, 2021 Assessment & Plan (1) Sepsis: Plan: - SIRS 3/4, qSOFA 2/3. CRP 18.79, ESR 128 and procalcitonin 1.78. Lactate 1.7. May be due to UTI as UA infected - CTA chest showing PE of left pulmonary artery bifurcation, as well as patchy densities in bilateral lower lobes. PE and atypical pneumonia may be contributing to sepsis as well. - MRSA nares negative, blood and urine cx negative at 48 hours - CRP, procalcitonin downtrending- 24 to 17, 2.8 to 1.6 - Continue cefepime + azithromycin (day 3 of abx), consider transition to oral abx pending family's decision on treatment - Continue LR 80cc/hr - Goals of care discussion with family 12/27- family considering comfort measures, declining anticoagulation for chronic PE + AF - Awaiting update from family about goals of care (2) Pulmonary embolism: Plan: Findings per CTA chest, likely contributing to sepsis as stated above. Patient is relatively sedentary and has current infection, likely provoking this PE. - CTA: small chronic peripheral thrombus, no acute PE - s/p Heparin bolus, cont. gtt - Echo (12/26): EF 55-60%, right ventricular systolic pressure elevated, LVH normal - supplemental O2 as stated above - Anticoagulation discussion as above (3) Permanent atrial fibrillation: Plan: Chronic, however, not in a-fib here in the hospital. - continue home Toprol 12.5 mg daily - Not on any anticoagulation- discussion as above under chronic PE (4) Laryngopharyngeal reflux: Plan: - chronic, previously evaluated - continue home Protonix - speech consulted for aspiration risk: puree diet with thin liquids, recommend stringent mouth care, consider video swallow study (5) Hypokalemia: Plan: -K 3.3 today, repleting with oral KCl -Trend BMP (6) Hypomagnesemia: Plan: -Mg 1.5, repleting with oral Mg -Trend Mg (7) Elevated troponin: Plan: hsTroponin elevated. No chest pain and EKG without ST/T abnormalities. Suspect demand ischemia in setting of tachycardia/sepsis/PE. - peaked at 198 on 12/25 with downtrend to 126 on 12/26 (8) COPD (chronic obstructive pulmonary disease): Plan: Chronic, no home O2 or regular inhalers -Continue O2 supplementation- 2L NC -Albuterol PRN for dyspnea (9) Hypertension: Plan: continue home Metoprolol as stated above (10) Dyslipidemia: Plan: Continue home Simvastatin and baby Aspirin (11) Dementia: Plan: continue home Donepezil (12) Anxiety: Plan: continue home Sertraline (13) Glaucoma: Plan: -daughter indicates h/o of glaucoma on some eye drop not on home med list -Timolol added to medications on 12/27 Plan FEN/GI: regular, LR @80cc/hr DVT Prophylaxis: Heparin gtt Code Status: DNR/DNI Disposition: PCU Admission and Anticipated Discharge Date Admission Date: December 25, 2021 Supervising Physician Co-Signing Physician Notes Attending attestation Pt seen and examined in concert with Dr. Frankel. In agreement with the documented findings as noted in the resident documentation with any exceptions or additions as noted here. Mentating stable from previous - not able to provide consistent, useful history but without acute complaint. On examination, S1/S2 nl RRR no MCG. Decreased breath sounds bilaterally at bases. Abd NT/ND BS+ve. Overall more active. Sepsis in the setting of PNA - transition to PO azithromycin to complete course of treatment for PNA, UTI treatment completed on cefepime Metabolic encephalopathy in the setting of dementia - at baseline per family. Pulmonary embolism, chronic - continue heparin drip. 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 Atrial fibrillation, chronic - currently sinus. Continue metoprolol. AC as above Else see resident documentation as noted. Subjective No acute events overnight. Pt appeared comfortable in bed this morning, did not endorse any acute complaints but interview again limited by her mental status. She does feel tired but states she is otherwise fine. Review of Systems Review of Systems: Per Subjective Physical Exam Physical Exam: General: A&O to self only. NAD. Cooperative. Thin HEENT: Atraumatic, normocephalic. Pulm: Decreased breath sounds bilaterally. -wheezes, -crackles. Symmetrical chest rise. No increase work of breathing. No respiratory distress. Cardiac: RRR, -mrg. Radial pulses intact and symmetrical. No LE edema. Abdominal: soft, non-tender, non-distended, BS x 4 Results & Data Results & Data ([facility]) Vital Signs (Past 12 Hours) Vital Signs Temp Pulse Pulse Resp BP Pulse Ox O2 Del Method 12/28/21 08:57 81 12/28/21 07:03 36.7 C 77 16 129/55 L 96 Room Air 12/28/21 02:57 37.0 C 78 20 142/64 H 96 Nasal Cannula 12/28/21 00:00 82 12/27/21 23:46 36.9 C 81 20 152/68 H 97 Nasal Cannula O2 Flow Rate 12/28/21 08:57 12/28/21 07:03 12/28/21 02:57 2.0 12/28/21 00:00 12/27/21 23:46 2.0
[2021-12-28] MEDS: MAGNESIUM OXIDE 400 MG TAB PO SCH (11:02)
[2021-12-28 13:59] LABS: Partial Thromboplastin Time 54.9 Seconds (21.0-31.0)
[2021-12-28] MEDS: ACETAMINOPHEN 325 MG TAB PO PRN (19:19)
[2021-12-28] MEDS: HEPARIN SODIUM/DEXTROSE 25,000 UNITS/500 ML BAG IV SCH (19:20)
[2021-12-28] MEDS ORDERED: LABETALOL HCL IV 5 MG/ML 20ML IV STA (19:59)
[2021-12-28] MEDS: DONEPEZIL HCL 10 MG TAB PO SCH (20:13)
[2021-12-29] MEDS: AZITHROMYCIN 500 MG in DEXTROSE 5% 250 ML IV SCH (02:06)
[2021-12-29 06:07] LABS: Basophils # (auto) 0.02 K/uL (0-0.2); Basophils % (auto) 0.2 %; Eosinophils # (auto) 0.04 K/uL (0-0.50); Eosinophils % (auto) 0.4 %; Hematocrit (blood only) 32.8 % (34.1-44.9); Hemoglobin 10.2 g/dl (12.0-16.0); Immature Granulocytes # (auto) 0.13 K/uL (0.00-0.02); Immature Granulocytes % (auto) 1.3 %; Lymphocytes # (auto) 1.18 K/uL (1.2-3.4); Lymphocytes % (auto) 11.9 %; Mean Corpuscular Hemoglobin 28.3 pg (25.0-34.0); Mean Corpuscular Hgb Conc 31.1 g/dL (32.0-36.0); Mean Corpuscular Volume 90.9 fL (80.0-100.0); Monocytes # (auto) 0.79 K/uL (0.24-0.82); Neutrophils # (auto) 7.72 K/uL (1.4-6.5); Neutrophils % (auto) 78.2 %; Platelet Count 192 K/uL (130-400); RDW Coefficient of Variation 13.2 % (11.5-14.5); RDW Standard Deviation 43.8 fL (36.4-46.3); Red Blood Count 3.61 M/uL (3.93-5.22); White Blood Count 9.88 K/ul (4.8-10.8)
[2021-12-29 06:40] LABS: Partial Thromboplastin Time 54.1 Seconds (21.0-31.0)
[2021-12-29 06:41] LABS: Albumin Globulin Ratio 0.5 (0.9-2); Albumin Level 2.5 gm/dl (3.4-5.0); BUN Creatinine Ratio 39.4 (10-20); Bilirubin,Total 0.3 mg/dl (0.2-1.0); C Reactive Protein 14.8 mg/dl (0-0.5); Calcium 7.9 mg/dl (8.5-10.1); Est GFR (Non-African American) 98.4 ml/min; Globulin 4.6 gm/dl (2.5-4.0); Potassium 3.1 mmol/L (3.5-5.1); Total Protein 7.1 gm/dl (6.0-8.3)
--- NOTE | 2021-12-29 07:19 | Hospitalist Progress Note ---
Date of Service December 29, 2021 Assessment & Plan (1) Sepsis: Plan: - SIRS 3/4, qSOFA 2/3. CRP 18.79, ESR 128 and procalcitonin 1.78. Lactate 1.7. May be due to UTI as UA infected - CTA chest showing PE of left pulmonary artery bifurcation, as well as patchy densities in bilateral lower lobes. PE and atypical pneumonia may be contributing to sepsis as well. - MRSA nares negative, blood and urine cx negative at 48 hours - CRP, procalcitonin downtrending- 24 to 17, 2.8 to 1.6 - Continue cefepime + azithromycin (day 3 of abx), consider transition to oral abx pending family's decision on treatment - Continue LR 80cc/hr - Goals of care discussion with family 12/27- family considering comfort measures, declining anticoagulation for chronic PE + AF - Awaiting update from family about goals of care (2) Pulmonary embolism: Plan: Findings per CTA chest, likely contributing to sepsis as stated above. Patient is relatively sedentary and has current infection, likely provoking this PE. - CTA: small chronic peripheral thrombus, no acute PE - s/p Heparin bolus, cont. gtt - Echo (12/26): EF 55-60%, right ventricular systolic pressure elevated, LVH normal - supplemental O2 as stated above - Anticoagulation discussion as above (3) Permanent atrial fibrillation: Plan: Chronic, however, not in a-fib here in the hospital. - continue home Toprol 12.5 mg daily - Not on any anticoagulation- discussion as above under chronic PE (4) Laryngopharyngeal reflux: Plan: - chronic, previously evaluated - continue home Protonix - speech consulted for aspiration risk: puree diet with thin liquids, recommend stringent mouth care, consider video swallow study (5) Hypokalemia: Plan: -K 3.3 today, repleting with oral KCl -Trend BMP (6) Hypomagnesemia: Plan: -Mg 1.5, repleting with oral Mg -Trend Mg (7) Elevated troponin: Plan: hsTroponin elevated. No chest pain and EKG without ST/T abnormalities. Suspect demand ischemia in setting of tachycardia/sepsis/PE. - peaked at 198 on 12/25 with downtrend to 126 on 12/26 (8) COPD (chronic obstructive pulmonary disease): Plan: Chronic, no home O2 or regular inhalers -Continue O2 supplementation- 2L NC -Albuterol PRN for dyspnea (9) Hypertension: Plan: continue home Metoprolol as stated above (10) Dyslipidemia: Plan: Continue home Simvastatin and baby Aspirin (11) Dementia: Plan: continue home Donepezil (12) Anxiety: Plan: continue home Sertraline (13) Glaucoma: Plan: -daughter indicates h/o of glaucoma on some eye drop not on home med list -Timolol added to medications on 12/27 Plan FEN/GI: regular, LR @80cc/hr DVT Prophylaxis: Heparin gtt Code Status: DNR/DNI Disposition: PCU Admission and Anticipated Discharge Date Admission Date: December 25, 2021 Results & Data Results & Data ([facility]) Vital Signs (Past 12 Hours) Vital Signs Temp Pulse Pulse Resp BP BP Pulse Ox 12/29/21 07:12 36.8 C 77 18 176/78 H 96 12/29/21 04:00 66 149/58 H 12/28/21 20:45 73 174/81 H 12/29/21 03:43 36.5 C 77 18 170/80 H 96 12/28/21 21:30 73 12/28/21 21:30 12/28/21 23:35 78 18 163/75 H 91 12/28/21 20:01 69 208/80 H 215/89 H O2 Del Method O2 Flow Rate 12/29/21 07:12 Nasal Cannula 2 12/29/21 04:00 12/28/21 20:45 12/29/21 03:43 Nasal Cannula 1 12/28/21 21:30 12/28/21 21:30 Nasal Cannula 1 12/28/21 23:35 Nasal Cannula 1 12/28/21 20:01
[2021-12-29] MEDS: SIMVASTATIN 10 MG TAB PO SCH (10:08)
[2021-12-29] MEDS: SERTRALINE HCL 50 MG TABLET PO SCH (10:08)
[2021-12-29] MEDS: METOPROLOL SUCC 25MG EXT REL TAB PO SCH (10:08)
[2021-12-29] MEDS: ASPIRIN 81 MG ECTAB PO SCH (10:08)
[2021-12-29] MEDS: MAGNESIUM OXIDE 400 MG TAB PO SCH (10:08)
[2021-12-29] MEDS: PANTOprazole 40 MG TAB PO SCH (10:08)
--- NOTE | 2021-12-29 12:45 | Electrocardiogram Report ---
Test Reason : Blood Pressure : / mmHG Vent. Rate : 062 BPM Atrial Rate : 062 BPM P-R Int : 150 ms QRS Dur : 082 ms QT Int : 500 ms P-R-T Axes : 072 023 024 degrees QTc Int : 507 ms Normal sinus rhythm with sinus arrhythmia Prolonged QT Nonspecific T wave abnormality Abnormal ECG When compared with ECG of 25-DEC-2021 19:01, Vent. rate has decreased BY 57 BPM Non-specific change in ST segment in Inferior leads Nonspecific T wave abnormality now evident in Anterior leads Nonspecific T wave abnormality no longer evident in Lateral leads Confirmed by Deion Benoit ([id number] on 12/29/2021 12:44:48 PM Referred By: REFERRED SELF Confirmed By:Deion Benoit
--- NOTE | 2021-12-29 13:47 | Discharge Summary ---
Date of Service December 29, 2021 Admission HPI Per Admitting Provider Evangelina Cifuentes is an 89yo female with PMHx significant for COPD (not on home O2), bronchiectasis, permanent a-fib (on BB, no AC), HTN, dyslipidemia, lumbar spinal stenosis, osteoporosis, severe dementia and anxiety, who presented to [facility] ED on 12/25 for syncope. Per EMS, patient's family witnessed her having a syncopal event and resultant fall - she was reportedly vaughan in color at the time. She has also been more confused and lethargic today - worse than baseline. Per EMS patient was hypoxic when they arrived and required supplemental O2. On discussion with the patient's daughter, she reports that the patient has a chronic cough that worsens when she eats. She thinks she chronically aspirates but denies previous aspiration pneumonia. Patient usually urinates without issues and has not been complaining of pain recently. She has been eating/drinking less and sweating more over last 1-2 days, and was profoundly weak yesterday. In the ED the patient was hypoxic to 86% and improved to SpO2 92-95% on 5L/min NC. HR in 110s (sinus tachycardia per EKG and telemetry monitoring). Also tachypneic in 30s. Borderline hypertensive and afebrile. Labs significant for WBC 15.01 (neutrophilic predominance and L shift). Lactate 1.7. Hgb 11.4 (at baseline). hsTroponin 126.5 (no ST/T abnormalities on EKG and no chest pain). UA with turbid urine 3+ blood and trace LE. COVID- 19/influenza/RSV negative. CXR with progressive reticular interstitial opacities in comparison to 2018 CXR but no acute cardiopulmonary process. XR pelvis without fractures. CT head unremarkable. CT c-spine with chronic degenerative changes but no acute fracture/abnormality. Patient was given NSS 1L bolus, Albuterol nebs, and Cefepime. Blood/urine cx drawn before initiation of abx. Admission Exam Per Admitting Provider General: A&O to self only (dementia). NAD. Cooperative. HEENT: Atraumatic, normocephalic. Pulm: Decreased breath sounds bilaterally. -wheezes, -rales, -rhonchi. Symmetrical chest rise. No increase work of breathing. No respiratory distress. Cardiac: RRR, -mrg. Radial pulses intact and symmetrical. No LE edema. Abdominal: soft, non-tender, non-distended, BS x 4 Principal Diagnosis Pneumonia with Sepsis Discharge Exam Constitutional + thin, comfortable and + lethargic ENMT Mouth: + dry oral mucous membranes Neck trachea midline, no thyromegaly Respiratory normal respiratory effort, lungs clear to auscultation Cardiovascular Rate/Rhythm: + irregularly irregular Skin no rashes, warm and dry Discharge Data Allergies Allergy/AdvReac Type Severity Reaction Status Date / Time erythromycin base AdvReac Intermediate NAUSEA Verified 12/26/21 01:37 banana AdvReac Verified 12/26/21 13:17 Consultations 12/25/21 21:53 ED Decision to Admit Stat 12/28/21 05:25 Consult Nutrition Routine Ordered Studies 12/25/21 19:03 CT cervical spine wo con Stat CT head/brain wo con Stat 12/25/21 22:52 CT angio chest PE protocol Urgent Hospital Course (1) Sepsis: 89yo female with PMHx significant for COPD (not on home O2), bronchiectasis, permanent a-fib (on BB, no AC), HTN, dyslipidemia, lumbar spinal stenosis, osteoporosis, severe dementia and anxiety, who presented to [facility] ED on 12/25 for syncope. -Patient transitioned to Home Hospice -Patient on Azithryomycin, 1 dose 500mg on12/30 -D/c'd home cetirizine, simvastatin, pantoprazole, potassium chloride to reduce pill burden, may use cetirizine and pantoprazole as needed for symptom management (1) Sepsis: Patient SIRS 3/4, qSOFA 2/3. CRP, ESR and procalcitonin concerning for sepsis. Lactate wnl. UA concerning for infection. CTA chest showing PE of left pulmonary artery bifurcation, as well as patchy densities in bilateral lower lobes. MRSA nares negative, blood and urine cx negative. CRP, procalcitonin downtrending. Patient started on cefepime (3 days) + azithromycin 500mg (4 days, will get 5th day at home given concern for patient frailty). Patient started on IVF, supplemental oxygen weaned to room air. Goals of care discussion with family 12/27- family considering comfort measures, declining anticoagulation for chronic PE + AF (2) Pulmonary embolism: Findings per CTA chest, likely contributing to sepsis as stated above. Patient is relatively sedentary and has current infection, likely provoking this PE. CTA: small chronic peripheral thrombus, no acute PE. Patient started on heparin in hospital. Echo (12/26): EF 55-60%, right ventricular systolic pressure elevated, LVH normal. Supplemental O2 as stated above. Anticoagulation discussion as above (3) Permanent atrial fibrillation: Chronic, continue home Toprol 12.5 mg daily. Not on any anticoagulation- discussion as above under chronic PE (4) Laryngopharyngeal reflux: Chronic, previously evaluated, may discontinue home protonix and take on as needed basis. Nutrition evaluation determined Severe Malnutrition. Speech consulted for aspiration risk: puree diet with thin liquids, recommend stringent mouth care, consider video swallow study (5) Hypokalemia - repleted (6) Hypomagnesemia - repleted (7) Elevated troponin: hsTroponin elevated. No chest pain and EKG without ST/T abnormalities. Suspect demand ischemia in setting of tachycardia/sepsis/PE. Downtrending. (8) COPD (chronic obstructive pulmonary disease): Chronic, no home O2 or regular inhalers. Continue O2 supplementation as needed. Albuterol PRN for dyspnea (9) Hypertension: continue home Metoprolol as stated above (10) Dyslipidemia: Patient to transition to hospice, may discontinue home Simvastatin and baby Aspirin (11) Dementia: Continue home Donepezil (12) Anxiety: Continue home Sertraline (13) Glaucoma: Daughter indicates h/o of glaucoma on some eye drop not on home med list, continue Timolol eye drops (2) Pulmonary embolism: (3) Permanent atrial fibrillation: (4) Laryngopharyngeal reflux: (5) Hypokalemia: (6) Hypomagnesemia: (7) Elevated troponin: (8) COPD (chronic obstructive pulmonary disease): (9) Hypertension: (10) Dyslipidemia: (11) Dementia: (12) Anxiety: (13) Glaucoma: Total Time Total Time Spent Total Time Spent (In Minutes): Less than 30 Discharge Plan Discharge Items Patient Disposition: Hospice - Home Reason For Visit: SEPSIS Discharge Diagnosis: Pneumonia with Sepsis Condition on Discharge: Fair Activity: Per Instructions section Non-emergency contact: Primary Care Provider Call non-emergency contact if: you have any medication questions, your symptoms worsen, your pain is not controlled and you have a fever Follow-up/Referrals: Bo Perez MD [Primary Care Provider] - Diet: Regular Diet Texture: Pureed (blended smooth) Addtl Attending Provider Instructions: You were admitted to the hospital for Pneumonia with Sepsis. You were treated with antibiotics and oxygen. Given your worsening severe dementia and severe malnutrition, we have met with your family and determined that you qualify for hospice home care. Hospice care will help ensure your comfort and wellbeing as your condition progresses, and will provide you and your family additional resources to navigate through this time in your life. Please meet up with your PCP after discharge to ensure proper coordination of your care. A discharge summary will be sent to your primary care physician to ensure david nuity of care. Please bring this discharge summary with you to your next office appointment so that your provider can review it at that time. Follow-up appointments: Make a follow-up appointment with your PCP within the next week. It is very important that you follow up with them shortly after discharge from the hospital. Keep all your follow-up appointments as already scheduled. If you cannot make an appointment, notify your provider. Medications: Your medication list has been reviewed and reconciled upon discharge to ensure accuracy and continuity of care. An updated list of all your medications is included with your hospital discharge paperwork. Please review this list closely, and make note of any changes. * We sent a new medication called Azithromycin to your pharmacy. Take Azithromycin 500mg one tablet daily for 1 days. * We have discontinued your daily Cetirizine. You may take this medication as needed for allergy symptoms, but do not require it on a daily basis at this time * We have discontinued your daily Pantoprazole. You may take this medication as needed for reflux symptoms, but do not require it on a daily basis at this time * We have discontinued your Potassium Chloride. * We have discontinued your Simvastatin. Take your medications as instructed; do not skip a dose of your medicines. Make sure all of your doctors know every medicine you are taking (including [id number] medicines, vitamins, and supplements). Call your primary care provider before taking any new medicines (including [id number]-dro-[id number] medicines, vitamins, and supplements), because some of these may interact with your current medications, or may make your symptoms worse. Tell your primary care provider if you cannot afford your medications. CONTACT YOUR PRIMARY CARE PROVIDER if you experience any of the following: Difficulty breathing, fever Difficulty following your treatment plan, or difficulty taking medications CALL 911 OR GO TO THE EMERGENCY DEPARTMENT if you experience any of the following: Sudden, severe abdominal pain or nausea/vomiting Severe chest pain, or chest pain that radiates (moves) to your jaw or arm Sudden, severe shortness of breath or difficulty breathing Thank you for allowing us to participate in your care. Pending Studies at Discharge: No Stand-Alone Forms: [facility] Medications and DC Order Prescriptions: New azithromycin 500 mg tablet 500 mg PO DAILY 1 Days Qty: 1 0RF Continued metoprolol succinate 25 mg tablet extended release 24 hr 12.5 mg PO DAILY Qty: 30 11RF lorazepam 0.5 mg tablet 0.5 mg PO BID PRN (Reason: Anxiety) Qty: 90 2RF Rx Instructions: Takes qhs sertraline 25 mg tablet See Rx Instructions .ROUTE .COMPLEX Qty: 90 3RF Dose Instruction: take 1 tablet by mouth once daily Rx Instructions: take 1 tablet by mouth once daily donepezil 10 mg tablet 10 mg PO HS Qty: 90 3RF Discontinued simvastatin 10 mg tablet 10 mg PO DAILY Qty: 90 3RF potassium chloride [Klor-Con M10] 10 mEq tablet,ER particles/crystals 10 meq PO DAILY Qty: 90 3RF pantoprazole 20 mg tablet,delayed release (DR/EC) 20 mg PO DAILY Qty: 90 3RF cetirizine [Zyrtec] 10 mg Tablet 10 mg PO DAILY Discharge Orders: Discharge Order (Routine); Ordered 12/29/21 Ordered By: Selin Vera Admission Data Admit Date/Time: 12/25/21 23:17 Attending Provider: Rakan Carrillo Admit Provider: Rick Boswell Primary Care Provider: Bo Perez Other Providers: France De Souza ; Rick Boswell ; Kelvin Grider Other Interventions: Discharge Summary Assessment (RN) Last Done: 12/29/21 14:20 Supervising Physician Co-Signing Physician Notes I personally examined the patient and verified all logan points of history and exam, discussed case, and agree with decision making with Dr Vera. Being fed by her daughter. They feel comfortable taking her home once everything is set up for hospicelater informed that everything was set up. Discussed overall hospice care, the dying process, etc. Answered all questions the best my ability. Vitals noted, in general she is awake and alert pleasant no distress. HEENT normocephalic atraumatic mucous membranes moist. Breathing unlabored no accessory muscle use good effort. Skin shows no rashes no pallor or icterus. Pneumoniafinish course of antibiotics. Appears stable for discharge Dementiaappears to be very severe, overall situation appears hospice appropriate. For home with hospice. PEfamily opted not for anticoagulation. This seems reasonable given that the patient is overall comfortable, and goal is for quality of life. Otherwise as above Resident Activity Tracking Resident Involvement: Resident Care Provided Care Provided: Adult Hospital Medicine
--- NOTE | 2021-12-29 17:18 | Billing Data ---
Date of Service December 29, 2021 Coding Level of Care Code D/C DAY MANAGEMENT <30 MINS
== END 2021-12-29 16:50 | disposition hospice, home (50) | DRG 871 ==
LOC: ED 18:52 → EDINP 23:17 → SUATTDRO 23:17 → 2E 12-26 01:55